=== PATIENT | male | born 1950 | race Caucasian/White ===

== ENCOUNTER → 2018-05-02 10:07 | Outpatient (CLI) | payer MEDICARE, BC, SELFPAY | PROVIDERS: PCP Internal Medicine; Visit Provider Internal Medicine | DX: R00.2 Palpitations (principal) | CPT/HCPCS: 93005 ==

== ENCOUNTER → 2018-10-10 08:11 | Outpatient (CLI) | payer MEDICARE, BC, SELFPAY ==
--- NOTE | 2018-10-10 09:00 | CT_ITS ---
CT abdomen pelvis wo con CLINICAL INDICATION: ITS.REASON: LLQ PAIN, ALTERED BOWEL HABITS ORDERING PHYSICIAN: Dorian Tolentino PATIENT AGE: 68 years COMPARISON: None TECHNIQUE: Axial images obtained with sagittal and coronal reformats. All CT scans at the facility use one or more dose reduction, viz: automated exposure control, ma/kV adjustment per patient size (including targeted exams where dose is matched to indication, i.e. head), or iterative reconstruction technique. PROCEDURE: Oral Contrast: Redicat IV Contrast: None . FINDINGS: Lower thorax: No acute finding There are at least 4 isodense lesions of the liver the largest in the dome of the liver at 15 mm with a second isodensity measuring 14 mm at the junction of the right and left hepatic lobe superiorly with these 2 lesions may be due to hemangiomas based on the previous enhancing imaging characteristics of 06/18/2009. The other isodensity's may represent cysts the largest of which is in the left hepatic lobe laterally at 16 mm. No new lesions are evident. Unremarkable appearing gallbladder. The spleen, adrenal glands, and pancreas have unremarkable unenhanced appearance. No renal or ureteral calculi. There is an exophytic soft tissue density projecting off the posterior aspect of the left kidney at 2.5 x 2 cm . The density is greater than what one would expect for simple cyst. This may represent a complex cyst having been present on the previous study. Ultrasound also demonstrated a cystic lesion of the left kidney on 04/10/2009. No intestinal obstruction or free air. No evidence of appendicitis. There is a mild amount of retained colonic feces. No evidence of diverticulitis. The prostate is enlarged measuring 7 x 5 x 5 5 cm indentation the inferior aspect of the urinary bladder. There is some lobularity along the anterior margin of the prostate on the right. There is mild thickening of the urinary bladder wall nonspecific. No acute bony findings. No abdominal wall hernia evident IMPRESSION: 1. Multiple isodense lesions of the liver which appear stable and may be due to combination of hemangiomas and cysts 2. Enlarged prostate. Mild concentric thickening of the urinary bladder wall which may be seen with prosthetic hypertrophy. 3. Mild amount of retained colonic feces. 4. 2.5 x 2 cm exophytic lesion projects off the posterior aspect of the left kidney. This has been present and may only represent a complex cyst but is slightly larger compared to the previous exam . This previously measured 2.2 x 1.4 cm. Suggest ultrasound to confirm cystic nature
== END ==
PROVIDERS: PCP Internal Medicine; Visit Provider Internal Medicine
DX: R10.32 Left lower quadrant pain (principal)
CPT/HCPCS: 74176

== ENCOUNTER → 2018-10-24 10:54 | Outpatient (CLI) | payer MEDICARE, BC, SELFPAY ==
--- NOTE | 2018-10-24 10:56 | US_ITS ---
US Kidney CLINICAL INDICATION: Enlarging left renal lesion ITS.REASON: LT KIDNEY CYST, LLQ PAIN ORDERING PHYSICIAN: Dorian Tolentino PATIENT AGE: 68 years Comparison: 10/10/2018 FINDINGS: The right kidney is 12 x 6 x 5 cm has an unremarkable appearance. No hydronephrosis. The left kidney is 10 x 5 x 5 cm. There is a 3 x 2 cm cyst projecting off the upper pole posteriorly corresponding to the CT abnormality which has benign appearance by ultrasound. No hydronephrosis or other significant anomalies. IMPRESSION: Left renal lesion corresponds to a benign-appearing cyst
== END ==
PROVIDERS: PCP Internal Medicine; Visit Provider Internal Medicine
DX: R10.32 Left lower quadrant pain (principal); N28.1 Cyst of kidney, acquired
CPT/HCPCS: 76770

== ENCOUNTER → 2018-11-29 14:39 | Outpatient (POV) | payer MEDICARE, BC, SELFPAY | DX: Z00.00 Encounter for general adult medical examination without abnormal findings (principal) ==

== ENCOUNTER → 2018-12-06 15:17 | Outpatient (POV) | payer MEDICARE, BC, SELFPAY | DX: Z00.00 Encounter for general adult medical examination without abnormal findings (principal) ==

== ENCOUNTER → 2019-10-29 07:52 | Outpatient (CLI) | payer MEDICARE, BC, SELFPAY ==
[2019-10-29 15:26] LABS: Coronavirus 19 IgG Antibody Negative (Negative); Coronavirus 19 IgM Antibody Negative (Negative)
== END ==
PROVIDERS: Visit Provider Ophthalmology
DX: Z01.818 Encounter for other preprocedural examination (principal)
CPT/HCPCS: 36415; 86328

== ENCOUNTER 2019-10-30 07:37 | Day surgery (SDC) | payer MEDICARE, BC, SELFPAY ==
[2019-10-24 10:02] VITALS: BMI 23.6
--- NOTE | 2019-10-26 09:26 | SUR.PREOP ---
10/26/2019 @ 6431--PHONE CALL MADE TO PATIENT. PATIENT UNDERSTANDS THAT LAB WORK AND COVID TESTING NEEDS TO BE COMPLETED @ 0800 ON 10/29/2019. PATIENT UNDERSTANDS IF LAB WORK AND COVID-19 TESTS ARE NOT COMPLETED BY 12PM ON THAT DATE, THE SURGERY SCHEDULED WILL BE CANCELLED AND RESCHEDULED FOR ANOTHER TIME.
[2019-10-30 08:16] VITALS: BP 141/84; PULSE 58; RESP 16; TEMP 36.8; O2SAT 99
[2019-10-30 08:51] VITALS: BP 154/86; PULSE 53; RESP 20; O2SAT 99
[2019-10-30 08:56] VITALS: BP 144/89; PULSE 54; RESP 18; O2SAT 99
[2019-10-30 09:01] VITALS: BP 146/93; PULSE 54; RESP 18; O2SAT 100
[2019-10-30 09:06] VITALS: BP 135/86; PULSE 55; RESP 20; O2SAT 100
[2019-10-30 09:09] VITALS: BP 139/97; PULSE 59; RESP 18; TEMP 36.4; O2SAT 98
== END 2019-10-30 09:21 | disposition home or self-care (01) ==
LOC: OR 07:38
PROVIDERS: PCP Internal Medicine; Visit Provider Ophthalmology
DX: H25.813 Combined forms of age-related cataract, bilateral (principal); H53.8 Other visual disturbances; Z88.0 Allergy status to penicillin
CPT/HCPCS: 66984; V2632

== ENCOUNTER 2020-01-02 10:29 | Emergency (ER) | payer MEDICARE, BC, SELFPAY ==
[2020-01-02 10:43] VITALS: BP 137/96; PULSE 69; RESP 16; TEMP 36.6; O2SAT 100; BMI 22.6
--- NOTE | 2020-01-02 11:00 | HMH.EDGENADL ---
ED Disposition Clinical Impression: Concussion Qualifiers: Encounter type: initial encounter Loss of consciousness presence/duration: without LOC Qualified Code(s): S06.0X0A - Concussion without loss of consciousness, initial encounter Disposition: Home, Self-Care Condition on Discharge: Good Instructions: DI for Concussion Additional Instructions: You have been evaluated for forgetfulness, head injury. Please avoid activities that cause headache. Take Tylenol. Follow-up with your primary care doctor in 1 to 2 days for symptom recheck. Return to the emergency department if you have any new or worsening symptoms, headache, neck pain, numbness or tingling in your arms, other concerns. Referrals: Dorian Tolentino [Primary Care Provider] - Time of Disposition: 13:26 - Critical Care Critical Care Time: No Attestation: On 01/02/20, the high probability of a clinically significant, sudden or life threatening deterioration of the following system(s) required my full and direct attention, intervention and personal management. The time I documented below is in addition to time spent performing reported procedures but includes the following listed in this critical care notation. Medical Decision Making - Medical Records Medical records reviewed: Yes: I reviewed the patient's medical records. - Claudio Inquiry Pt receiving controlled substance: No Vital Signs: 01/02/20 10:43 01/02/20 12:39 Temperature 98 F Temperature Source Temporal Artery Scan Pulse Rate [Right] 69 62 Respiratory Rate 16 16 Blood Pressure [Right Arm] 137/96 H 160/91 H Blood Pressure Mean [Right Arm] 109 114 Blood Pressure Source [Right Arm] Automatic Cuff Blood Pressure Position [Right Arm] Sitting Sitting 02 Sat by Pulse Oximetry 100 98 Oxygen Delivery Method Room Air Room Air Orders (Tests/Meds): ORDERS Category Date Time Status CT cervical spine wo con Stat Cat Scan 01/02/20 12:[address] head/brain wo con Stat Cat Scan 01/02/20 13:04 Ordered Medical Decision Narrative: In summary this is a 69-year-old male presenting to the emergency department with memory loss after head injury. He is overall stable on arrival. Answering questions appropriately, but intermittently pleasantly confused. Differential diagnoses include concussion, intracranial bleed. Will obtain noncontrast head CT. Story is inconsistent with vertebral or carotid injury, will obtain CT C-spine to assess for fractures. Noncontrast head CT shows old area of encephalomalacia on the right. No new bleed or acute injury. CT C-spine shows no bony abnormality. I counseled the patient on concussion management. Gave strict return precautions for any new or worsening symptoms like numbness or tingling in his arms, as we have not excluded a neurovascular injury. Patient does not have any symptoms at this time. Stable for discharge. Will follow up with his PCP. General Adult HPI - General Stated complaint: fell off a horse Time Seen by Provider: 01/02/20 10:51 Mode of Arrival: Ambulatory Source of Information: Patient, Spouse - History of Present Illness HPI narrative: 69-year-old male presenting to the emergency department with a head injury after falling off of a horse. Patient was riding 1 of his new horses when he realized that the horse was out of control. He fell to the side and rolled on the ground. Does not particularly remember hitting his head. Thought that most of his impact was on his side and his right arm. He was able to get up and ambulate. He does not remember the immediate events afterward. He called his daughter, does not remember it. When he came into the house was somewhat confused. Denied any pain in his chest, abdomen, back, extremities. No particular headache. Does feel rattled. He has had a concussion before, many years ago. Does not take blood thinners. - Related Data Home Medications Medication Instructions Recorded Conf
--- NOTE | 2020-01-02 11:01 | PC.NURSE ---
Called the Rad department at [facility] and let them I would be sending a patient over for a head/neck CT. Advised them I would send an order for the tests and requested that they send a disk back with the pt. I notified [facility] of the transfer, and spoke with the pt and his family and they were agreeable to the transfer to [place] for the exam and then returning to [facility] for rest of workup.
--- NOTE | 2020-01-02 11:12 | PC.NURSE ---
Pt going to [facility] at this time.
--- NOTE | 2020-01-02 12:35 | PC.NURSE ---
Pt returned from [facility]
[2020-01-02 12:39] VITALS: BP 160/91; PULSE 62; RESP 16; O2SAT 98
[2020-01-02 13:34] VITALS: BP 121/65; PULSE 87; RESP 16; TEMP 36.6; O2SAT 98
== END 2020-01-02 13:37 | disposition home or self-care (01) ==
PROVIDERS: Emergency Provider Emergency Medicine; PCP Internal Medicine
DX: S06.0X0A Concussion without loss of consciousness, initial encounter (principal); V80.010A Animal-rider injured by fall from or being thrown from horse in noncollision accident, initial encounter; Y92.73 Farm field as the place of occurrence of the external cause; I48.91 Unspecified atrial fibrillation; Z88.0 Allergy status to penicillin
CPT/HCPCS: 70450; 72125; 99282

== ENCOUNTER → 2020-01-21 11:49 | Outpatient (CLI) | payer MEDICARE, BC, SELFPAY ==
--- NOTE | 2020-01-21 11:55 | XR_ITS ---
PROCEDURE: XR LUMBAR SPINE MIN 4V CLINICAL INDICATION: RIGHT SIDED LOW BACK PAIN COMPARISON: CT ABDPELWO CT abdomen pelvis wo con from 10/10/2018 FINDINGS: Normal alignment. No fracture or dislocation. There is multilevel lumbar spondylosis with degenerative disc disease at T11-T12 T12-L1 L1-L2 and L2-L3. Marginal osteophytes are present at the endplates of the lower thoracic and lumbar spine. Facet hypertrophic changes are present at L5-S1. No lytic or blastic change. Other findings:There is anterior angulation of the lower sacrum which is chronic. This suggests an old injury. There is a sclerotic focus of the L4 vertebral body and may be due to a bone island IMPRESSION: Degenerative changes as described above Dictated by: Paulino Obregon MD 01/21/2020 12:27 Paulino Obregon MD in [place] 01/21/2020 12:27
--- NOTE | 2020-01-21 11:56 | XR_ITS ---
PROCEDURE: XR PELVIS 1-2V CLINICAL INDICATION: RIGHT SIDED BACK PAIN COMPARISON: No exams were available for comparison TECHNIQUE: XR Pelvis AP View FINDINGS: Mild osteoarthritic changes are present involving both hips slightly greater on the right compared to the left. There is also mild sclerosis of the right SI joint inferiorly. No fracture or dislocation. No lytic or blastic change. There is an os acetabulum on the right. There is mild sclerosis of the symphysis pubis. No lytic or blastic change. IMPRESSION: Mild osteoarthritic changes of the hips Dictated by: Paulino Obregon MD 01/21/2020 12:24 Paulino Obregon MD in [place] 01/21/2020 12:24
== END ==
PROVIDERS: PCP Internal Medicine; Visit Provider Internal Medicine
DX: M54.5 Low back pain (principal)
CPT/HCPCS: 72110; 72170

== ENCOUNTER 2024-09-05 14:57 | Outpatient (CLI) | payer MEDICARE, BC, SELFPAY ==
[2024-09-05 13:47] LABS: Basophils % 0.3 % (0.1-2.0); Eosinophils # 0.2 K/mm3 (0.0-0.4); Eosinophils % 2.6 % (0.1-12.0); Hematocrit 44.4 % (42.0-52.0); Hemoglobin 15.3 g/dL (14.1-18.0); Lymphocytes # 1.7 K/mm3 (0.7-4.5); Lymphocytes % 26.3 % (10-50); Mean Corpuscular HGB Conc 34.5 g/dL (31.8-35.4); Mean Corpuscular Volume 92.9 fl (80-94); Mean Platelet Volume 10.5 fl (7.4-10.4); Monocytes # 0.6 K/mm3 (0.1-1.0); Monocytes % 9.4 % (1.7-9.3); Neutrophils # 4.1 K/mm3 (1.8-7.8); Neutrophils % 61.2 % (37.0-80.0); Nucleated Red Blood Cells # 0 10^3/uL; Nucleated Red Blood Cells % 0 %; Platelet Count 211 K/mm3 (142-424); Red Blood Count 4.78 M/mm3 (4.60-6.20); Red Cell Distribution Width-SD 44.4 fL; White Blood Count 6.6 K/mm3 (4.8-10.8)
[2024-09-05 14:16] LABS: Alanine Aminotransferase 18 U/L (12-78); Albumin Level 4.6 g/dl (3.5-5.0); Albumin/Globulin Ratio 1.4 (1.1-1.8); Alkaline Phosphatase 57 U/L (38-126); Anion Gap 13.2 mEq/L (5-15); Aspartate Amino Transferase 45 U/L (17-59); Bilirubin,Total 1.1 mg/dl (0.2-1.3); Blood Urea Nitrogen 14 mg/dl (9-20); Calcium 9.3 mg/dl (8.4-10.2); Carbon Dioxide 28 mmol/L (22.0-30.0); Chloride 101 mmol/L (98-107); Chol/HDL Ratio 4.4 (1-3.5); Cholesterol 210 mg/dl (140-200); Estimated Glomerular Filt Rate 95 ml/min (>60); GFR (African American) 115 ML/MIN (>60); Globulin 3.2 g/dL (1.3-3.2); Glucose 93 mg/dl (74-100); HDL Cholesterol 48 mg/dl (40-60); Potassium 4.2 mmoL/L (3.5-5.1); Sodium 138 mmol/L (136-145); Total Protein,Serum 7.8 g/dl (6.3-8.2); Triglycerides 95 mg/dl (30-150); VLDL Cholesterol 19 mg/dL (0-40)
[2024-09-05 14:24] LABS: Erythrocyte Sedimentation Rate 15 mm/hr (0-20)
[2024-09-05 14:45] LABS: Thyroid Stimulating Hormone 0.74 uIU/mL (0.465-4.68)
[2024-09-05 16:23] LABS: Vitamin B12 > 1000 pg/mL (239-931)
== END 2024-09-05 23:59 | disposition home or self-care (01) ==
LOC: LAB.DROPOF 14:58
PROVIDERS: PCP Internal Medicine; Visit Provider Internal Medicine
DX: E78.5 Hyperlipidemia, unspecified (principal); I10 Essential (primary) hypertension; R41.3 Other amnesia; K52.9 Noninfective gastroenteritis and colitis, unspecified
CPT/HCPCS: 80053; 80061; 82607; 82746; 84443; 85025; 85651

== ENCOUNTER 2024-09-06 14:55 | Outpatient (CLI) | payer MEDICARE, BC, SELFPAY ==
[2024-09-06 13:46] LABS: Adenovirus F 40/41, stool Not Detected (NotDetected); Astrovirus Not Detected (NotDetected); Campylobacter Not Detected (NotDetected); Clostridium Difficile A/B, PCR Not Detected (NotDetected); Cryptosporidium Not Detected (NotDetected); Cyclospora Cayetanesis Not Detected (NotDetected); Entamoeba histolytica Not Detected (NotDetected); Enteroaggregative E coli Not Detected (NotDetected); Enteropathogenic E coli Not Detected (NotDetected); Enterotoxigenic E coli Not Detected (NotDetected); Giardia lamblia Not Detected (NotDetected); Norovirus Not Detected (NotDetected); Plesimonas Shigalloides, PCR Not Detected (NotDetected); Rotavirus A Not Detected (NotDetected); Salmonella, PCR Not Detected (NotDetected); Sapovirus Not Detected (NotDetected); Shiga-like toxin E coli Not Detected (NotDetected); Shigella Enterovasive E coli Not Detected (NotDetected); Vibrio Cholerae Not Detected (NotDetected); Vibrio, PCR Not Detected (NotDetected); Yersinia Entercolitica, PCR Not Detected (NotDetected)
--- OUTSIDE RECORDS SUMMARY | 2024-09-06 14:57 | XMS_ITS | Data Portability ---
Author Organization [facility] ELLIS Perales [place] CLOSED Address [address] [place] [address] Care Team Providers Care Traffic Director Name Role Phone [facility] OF [facility] Primary Care Provider Assessment No assessment recorded. Plan of Treatment Reminders Order Date Submit Date Provider Last Modified By Organization Details Last Modified Time Details Appointments RECHECK 2024 09:30A M ISAIAH PEREZ MD Not available Not available Not available Lab urinalysi s panel, auto 2023 024 [email or web address] [facility], [address], [place], [address], 04/08/2024 15:21:19 PSA, serum or plasma 2023 024 [email or web address] [facility], [address], [address], [place], [address], 04/08/2024 15:21:19 urinalysi s panel, auto 2023 024 [email or web address] [facility], [address], [address], [place], [address], 10/06/2023 23:45:46 PSA, serum or plasma 2023 024 [email or web address] [facility], [address], [address], [place], [address], 10/06/2023 23:45:47 PSA, serum or plasma [address] [facility], [address], [address], [place], [address], 10/01/2022 11:37:02 urinalysi s panel, auto [address] [facility], [address], [address], [place], [address], 08/20/2022 22:17:15 PSA, serum or plasma [address] [facility], [address], [address], [place], [address], 08/20/2022 22:17:15 PSA, serum or plasma [address] [facility], [address], [address], [place], [address], 07/20/2021 23:03:16 Referral None recorded. Procedures None recorded. Surgeries None recorded. Imaging None recorded. Medication Orders nabumeton e 500 mg tablet 2022 023 [email or web address] [facility], [address] [place], [address], 04/06/2024 09:23:41 doxycycli ne monohydra te 100 mg capsule 2022 023 [email or web address] [facility], [address] [place], [address], 10/05/2023 14:23:40 Patient TargetsNo targets recorded. Patient Instructions Encounter Date Encounter Id Patient Instructions Last Modified By Organization Details Last Modified Time 08/20/2022 [id number] learning about healthy weight [email or web address] Not available 08/20/2022 13:38:34 Reason for Referral None Reported. Results Created Date Observation Date Name Description Value Unit Range Abnormal Flag Note LastModifiedBy Organization Detail LastModifiedTime 07/20/19 22 07/20/2021 PSA, serum or plasm a PSA 12.1 NG/mL 0.0 - 4.0 Not Available [facility] [address], [place], [address], 07/20/2021 12:04:44 08/21/19 23 08/20/2022 PSA, serum or plasm a PSA 20.5 NG/mL 0.0 - 4.0 Not Available [facility] [address], [place], [address], 08/20/2022 13:05:31 08/21/19 23 08/20/2022 urina lysis panel , auto Unknown Analyte Clean Catch Not Available [facility] [address], [place], [address], 08/20/2022 13:04:36 08/21/19 23 08/20/2022 urina lysis panel , auto Unknown Analyte Yellow Not Available [facility] [address], [place], [address], 08/20/2022 13:04:36 08/21/19 23 08/20/2022 urina lysis panel , auto Unknown Analyte Clear Not Available [facility] [address], [place], [address], 08/20/2022 13:04:36 08/21/19 23 08/20/2022 urina lysis panel , auto Unknown Analyte 1.015 Not Available [facility] [address], [place], [address], 08/20/2022 13:04:36 08/21/19 23 08/20/2022 urina lysis panel , auto Unknown Analyte 1.003- 1.035 Not Available [facility] [address], [place], [address], 08/20/2022 13:04:36 08/21/19 23 08/20/2022 urina lysis panel , auto Unknown Analyte 6.0 Not Available [facility] [address], [place], [address], 08/20/2022 13:04:36 08/21/19 23 08/20/2022 urina lysis panel , auto Unknown Analyte 5.0-8. 0 Not Available [facility] [address], [place], [address], 08/20/2022 13:04:36 08/21/19 23 08/20/2022 urina lysis panel , auto Unknown Analyte 25 Veronique/ul Trace Not Available [facility] [address], [place], [address], 08/20/2022 13:04:36 08/21/19 23 08/20/2022 urina lysis panel , auto Unknown Analyte Negati ve Not Available [facility] [address], [place], [address], 08/20/2022 13:04:36 08/21/19 23 08/20/2022 urina lysis panel , auto Unknown Analyte Negati ve Not Available [facility] [address], [place], [address], 08/20/2022 13:04:36 08/21/19 23 08/20/2022 urina lysis panel , auto Unknown Analyte Negati ve Not Available [facility] [address], [place], [address], 08/20/2022 13:04:36 08/21/19 23 08/20/2022 urina lysis panel , auto Unknown Analyte Trace Not Available [facility] [address], [place], [address], 08/20/2022 13:04:36 08/21/19 23 08/20/2022 urina lysis panel , auto Unknown Analyte Negati ve Not Available [facility] [address], [place], [address], 08/20/2022 13:04:36 08/21/19 23 08/20/2022 urina lysis panel , auto Unknown Analyte Normal Not Available [facility] [address], [place], [address], 08/20/2022 13:04:36 08/21/19 23 08/20/2022 urina lysis panel , auto Unknown Analyte Normal Not Available [facility] [address], [place], [address], 08/20/2022 13:04:36 08/21/19 23 08/20/2022 urina lysis panel , auto Unknown Analyte Negati ve Not Available [facility] [address], [place], [address], 08/20/2022 13:04:36 08/21/19 23 08/20/2022 urina lysis panel , auto Unknown Analyte Negati ve Not Available [facility] [address], [place], [address], 08/20/2022 13:04:36 08/21/19 23 08/20/2022 urina lysis panel , auto Unknown Analyte Normal Not Available [facility] [address], [place], [address], 08/20/2022 13:04:36 08/21/19 23 08/20/2022 urina lysis panel , auto Unknown Analyte Normal 1 mg/dl Not Available [facility] [address], [place], [address], 08/20/2022 13:04:36 08/21/19 23 08/20/2022 urina lysis panel , auto Unknown Analyte Negati ve Not Available [facility] [address], [place], [address], 08/20/2022 13:04:36 08/21/19 23 08/20/2022 urina lysis panel , auto Unknown Analyte Negati ve Not Available [facility] [address], [place], [address], 08/20/2022 13:04:36 08/21/19 23 08/20/2022 urina lysis panel , auto Unknown Analyte 50 Ian/ul Not Available [facility] [address], [place], [address], 08/20/2022 13:04:36 08/21/19 23 08/20/2022 urina lysis panel , auto Unknown Analyte Negati ve Not Available [facility] [address], [place], [address], 08/20/2022 13:04:36 10/02/19 23 10/01/2022 PSA, serum or plasm a PSA 13.5 NG/mL 0.0 - 4.0 Not Available [facility] [address], [place], [address], 10/01/2022 11:02:28 10/05/19 24 10/05/2023 PSA, serum or plasm a PSA 13.8 NG/mL 0.0 - 4.0 Not Available [facility] [address], [place], [address], 10/05/2023 14:42:07 10/05/19 24 10/05/2023 urina lysis panel , auto Unknown Analyte Clean Catch Not Available [facility] [address], [place], [address], 10/05/2023 14:24:29 10/05/19 24 10/05/2023 urina lysis panel , auto Unknown Analyte Yellow Not Available [facility] [address], [address], 10/05/2023 14:24:29 10/05/19 24 10/05/2023 urina lysis panel , auto Unknown Analyte Clear Not Available [facility] [address], [place], [address], 10/05/2023 14:24:29 10/05/19 24 10/05/2023 urina lysis panel , auto Unknown Analyte 1.015 Not Available [facility] [address], [place], [address], 10/05/2023 14:24:29 10/05/19 24 10/05/2023 urina lysis panel , auto Unknown Analyte 1.003- 1.035 Not Available [facility] [address], [place], [address], 10/05/2023 14:24:29 10/05/19 24 10/05/2023 urina lysis panel , auto Unknown Analyte 5.0 Not Available [facility] [address], [place], [address], 10/05/2023 14:24:29 10/05/19 24 10/05/2023 urina lysis panel , auto Unknown Analyte 5.0-8. 0 Not Available [facility] [address], [place], [address], 10/05/2023 14:24:29 10/05/19 24 10/05/2023 urina lysis panel , auto Unknown Analyte Negati ve Not Available [facility] [address], [place], [address], 10/05/2023 14:24:29 10/05/19 24 10/05/2023 urina lysis panel , auto Unknown Analyte Negati ve Not Available [facility] [address], [place], [address], 10/05/2023 14:24:29 10/05/19 24 10/05/2023 urina lysis panel , auto Unknown Analyte Negati ve Not Available [facility] [address], [place], [address], 10/05/2023 14:24:29 10/05/19 24 10/05/2023 urina lysis panel , auto Unknown Analyte Negati ve Not Available [facility] [address], [place], [address], 10/05/2023 14:24:29 10/05/19 24 10/05/2023 urina lysis panel , auto Unknown Analyte Negati ve Not Available [facility] [address], [place], [address], 10/05/2023 14:24:29 10/05/19 24 10/05/2023 urina lysis panel , auto Unknown Analyte Negati ve Not Available [facility] [address], [place], [address], 10/05/2023 14:24:29 10/05/19 24 10/05/2023 urina lysis panel , auto Unknown Analyte Normal Not Available [facility] [address], [place], [address], 10/05/2023 14:24:29 10/05/19 24 10/05/2023 urina lysis panel , auto Unknown Analyte Normal Not Available [facility] [address], [place], [address], 10/05/2023 14:24:29 10/05/19 24 10/05/2023 urina lysis panel , auto Unknown Analyte 15 mg/dl (Sm) Not Available [facility] [address], [place], [address], 10/05/2023 14:24:29 10/05/19 24 10/05/2023 urina lysis panel , auto Unknown Analyte Negati ve Not Available [facility] [address], [place], [address], 10/05/2023 14:24:29 10/05/19 24 10/05/2023 urina lysis panel , auto Unknown Analyte Normal Not Available [facility] [address], [place], [address], 10/05/2023 14:24:29 10/05/19 24 10/05/2023 urina lysis panel , auto Unknown Analyte Normal 1 mg/dl Not Available [facility] [address], [place], [address], 10/05/2023 14:24:29 10/05/19 24 10/05/2023 urina lysis panel , auto Unknown Analyte Negati ve Not Available [facility] [address], [place], [address], 10/05/2023 14:24:29 10/05/19 24 10/05/2023 urina lysis panel , auto Unknown Analyte Negati ve Not Available [facility] [address], [place], [address], 10/05/2023 14:24:29 10/05/19 24 10/05/2023 urina lysis panel , auto Unknown Analyte 250 Ian/ul Not Available [facility] [address] [place] [address] [address], [place], [address], 10/05/2023 14:24:29 10/05/19 24 10/05/2023 urina lysis panel , auto Unknown Analyte Negati ve Not Available [facility] [address], [place], [address], 10/05/2023 14:24:29 04/06/20 24 04/06/2024 PSA, serum or plasm a PSA 12.1 NG/mL 0.0 - 4.0 Not Available [facility] [address], [place], [address], 04/06/2024 10:05:23 04/06/20 24 04/06/2024 urina lysis panel , auto Unknown Analyte Clean Catch Not Available [facility] [address], [place], [address], 04/06/2024 08:54:16 04/06/2004/06/2024 urina lysis panel , auto Unknown Analyte Yellow Not Available [facility] [address], [place], [address], 04/06/2024 08:54:16 04/06/20 24 04/06/2024 urina lysis panel , auto Unknown Analyte Clear Not Available [facility] [address], [place], [address], 04/06/2024 08:54:16 04/06/20 24 04/06/2024 urina lysis panel , auto Unknown Analyte 1.010 Not Available [facility] [address], [place], [address], 04/06/2024 08:54:16 04/06/2004/06/2024 urina lysis panel , auto Unknown Analyte 1.003- 1.035 Not Available [facility] [address], [place], [address], 04/06/2024 08:54:16 04/06/20 24 04/06/2024 urina lysis panel , auto Unknown Analyte 8.0 Not Available [facility] [address], [place], [address], 04/06/2024 08:54:16 04/06/20 24 04/06/2024 urina lysis panel , auto Unknown Analyte 5.0-8. 0 Not Available [facility] [address], [place], [address], 04/06/2024 08:54:16 04/06/20 24 04/06/2024 urina lysis panel , auto Unknown Analyte Negati ve Not Available [facility] [address], [place], [address], 04/06/2024 08:54:16 04/06/20 24 04/06/2024 urina lysis panel , auto Unknown Analyte Negati ve Not Available [facility] [address], [place], [address], 04/06/2024 08:54:16 04/06/20 24 04/06/2024 urina lysis panel , auto Unknown Analyte Negati ve Not Available [facility] [address], [place], [address], 04/06/2024 08:54:16 04/06/2004/06/2024 urina lysis panel , auto Unknown Analyte Negati ve Not Available [facility] [address], [place], [address], 04/06/2024 08:54:16 04/06/20 24 04/06/2024 urina lysis panel , auto Unknown Analyte Negati ve Not Available [facility] [address], [place], [address], 04/06/2024 08:54:16 04/06/20 24 04/06/2024 urina lysis panel , auto Unknown Analyte Negati ve Not Available [facility] [address], [place], [address], 04/06/2024 08:54:16 04/06/20 24 04/06/2024 urina lysis panel , auto Unknown Analyte Normal Not Available [facility] [address], [place], [address], 04/06/2024 08:54:16 04/06/20 24 04/06/2024 urina lysis panel , auto Unknown Analyte Normal Not Available [facility] [address], [place], [address], 04/06/2024 08:54:16 04/06/2004/06/2024 urina lysis panel , auto Unknown Analyte Negati ve Not Available [facility] [address], [place], [address], 04/06/2024 08:54:16 04/06/2004/06/2024 urina lysis panel , auto Unknown Analyte Negati ve Not Available [facility] [address], [place], [address], 04/06/2024 08:54:16 04/06/2004/06/2024 urina lysis panel , auto Unknown Analyte Normal Not Available [facility] [address], [place], [address], 04/06/2024 08:54:16 04/06/2004/06/2024 urina lysis panel , auto Unknown Analyte Normal 1 mg/dl Not Available [facility] [address], [place], [address], 04/06/2024 08:54:16 04/06/2004/06/2024 urina lysis panel , auto Unknown Analyte Negati ve Not Available [facility] [address], [place], [address], 04/06/2024 08:54:16 04/06/20 24 04/06/2024 urina lysis panel , auto Unknown Analyte Negati ve Not Available [facility] [address] [facility] [address], [place], [address], 04/06/2024 08:54:16 04/06/20 24 04/06/2024 urina lysis panel , auto Unknown Analyte 50 Ian/ul Not Available [facility] [address], [place], [address], 04/06/2024 08:54:16 04/06/20 24 04/06/2024 urina lysis panel , auto Unknown Analyte Negati ve Not Available [facility] [address], [place], [address], 04/06/2024 08:54:16 Result Notes None recorded. Problems Name Problem SNOMED Code Status Onset Date Resolution Date Notes Provider Name and Address Organization Details Recorded Time Prostate specific antigen above reference range 634540703 Active 2014 From Automated Load;Prov ider: Isaiah Perez;S tatus: Active Not Available [facility] 6 01:49:14 Lower urinary tract symptoms due to benign prostatic hypertrop 08741937680 101 Active 2015 From Automated Load;Prov ider: Maggie Isaiah;S tatus: Active Not Available [facility] 6 01:49:14 Problem Notes None recorded. Procedures Surgical History Date Name Laterality Status Provider Name and Address Organization Details Recorded Time 7 Hernia Repair completed Murelene Shayne [facility] 04/08/2017 14:15:26 Prostate biopsy, any mthd completed Ivette Reynoso [facility] 08/06/2016 14:18:54 Imaging Results None recorded. Procedure Notes None recorded. Medical Equipment None Reported. Allergies Allergen ID Allergen Name Allergen Category Reaction Reaction Severity Criticality Documentation Date Start Date Code Code System Note Provider Name and Address Organization Details Recorded Time 201036 Product containin g penicilli n (product) medicatio n Not available Not available Not available 04/16/20162012 45416 7972 SNOMED Comme nt: Creat ed By: Adolfo pepeCr eated Date: 05/04 11:15 :40 AM; Not Available [facility] 03:48:07 Medications Name Sig Start Date Stop Date Status Note LastModified by Organization Details LastModified Time doxycycline monohydrate 100 mg capsule Take 1 capsule twice a day by oral route. 10/04 completed Not Available Not Available Not Available nabumetone 500 mg tablet Take 1 tablet twice a day by oral route. 04/06 completed Not Available Not Available Not Available Vitals Date Recorded Body weight Body mass index (BMI) Body height Provider Name and Address Organization Details Last Updated DateTime 07/20/2021 83271.82 g 22.2 kg/m2 177.8 cm Germaine Connor [facility] 07/20/2021 12:04:29 Date Recorded Body height Body mass index (BMI) Body weight Provider Name and Address Organization Details Last Updated DateTime 08/20/2022 177.8 cm 22.2 kg/m2 07087.82 g Katie Bella [facility] 08/20/2022 13:03:46 Date Recorded Body height Body mass index (BMI) Body weight Provider Name and Address Organization Details Last Updated DateTime 10/01/2022 177.8 cm 22.2 kg/m2 36369.82 christi Ivette Reynoso [facility] 10/01/2022 11:02:13 Date Recorded Body height Body mass index (BMI) Body weight Provider Name and Address Organization Details Last Updated DateTime 10/05/2023 177.8 cm 22.2 kg/m2 85965.82 g Lauren Tolentino [facility] 10/05/2023 14:22:44 Date Recorded Body height Body mass index (BMI) Body weight Provider Name and Address Organization Details Last Updated DateTime 04/06/2024 177.8 cm 22.7 kg/m2 07193.59 christi Bella [facility] 04/06/2024 09:22:31 Social History Question Answer Notes LastModified by Organizat ion Details LastModified Time Tobacco Smoking Status Former Smoker Ivette Reynoso [facility] 08/06/2016 14:18:30 What Is Your Level Of Alcohol Consumption? Occasional Information not available 08/06/2016 How Much Tobacco Do You Chew? None [email or web address] Information not available 10/18/2018 Marital Status Informat ion not available 08/06/2016 What Was The Date Of Your Most Recent Tobacco Screening? 04/06/2024 [email or web address] Information not available 04/06/2024 Do You Use Any Illicit Or Recreational Drugs? No [email or web address] Information not available 07/20/2021 Has Tobacco Cessation Counseling Been Provided? No [email or web address] Information not available 07/20/2021 Have You Recently Traveled Abroad? No [email or web address] Information not available 07/20/2021 Do You Or Have You Ever Used Any Other Forms Of Tobacco Or Nicotine? No [email or web address] Information not available 07/20/2021 Sex: Male Functional Status None recorded. Mental Status None recorded. Family History Relationship Description Onset Age of this Age Resolved Age Notes LastModified by Organization Details LastModified Time Unspecified Relation Diabetes mellitus rich Not available 14:18:17 Unspecified Relation Family history of malignant neoplasm rich Not available 14:18:23 Medical History Condition Response Gout N Kidney Stones N Heart Arrhythmia N Emphysema N Erectile Dysfunction N Depression N Pneumonia N Cancer Prostate N Anxiety Disorder N Arthritis N Acid Reflux (GERD) N Cancer N Stroke N Kidney Disease N Heart Conditions N Urinary Problems N Ulcers N Low Testosterone N Tuberculosis N AIDS/HIV N BPH Y Urinary Tract Infection N Asthma Y Thyroid Disorder N Hepatitis N Glaucoma N Anesthesia Complications N Radiation Therapy N High Cholesterol N High PSA Y Liver Disease N Allergies/Hayfever N False Teeth N Chronic Obstructive Pulmonary Disease N Chemotherapy N Anemia N Heart Attack (ND) N Mental Illness N Diabetes N Seizures/Epilepsy N Congestive Heart Failure (CHF) N Sleep Apnea N Heart Disease Y Bronchitis N Hypertension N Past Encounters Encounter ID Performer Location Encounter Start Date Encounter Closed Date Diagnosis/Indication Diagnosis SNOMED-CT Code Diagnosis ICD10 Code Diagnosis Note [id number] ISAIAH PEREZ MD [facility] [address] [place] [address] 08/06/2016 14:09:46 08/09/2016 16:30:50 Prostate specific antigen above reference range [id number] R97.20 due to the recent change she will follow-up in 2 months with repeat PSA. [id number] ISAIAH PEREZ MD [facility] [address] [place] [address] 10/08/2016 14:03:21 10/11/2016 12:15:23 Prostate specific antigen above reference range [id number] R97.20 Follow-up 6 months with PSA [id number] ISAIAH PEREZ MD [facility] [address] [place] [address] 04/08/2017 13:21:23 04/12/2017 08:01:06 Prostate specific antigen above reference range 509378072 R97.20 Follow-up 3 months with PSA [id number] ISAIAH PEREZ MD [facility] [address] [place] [address] 07/13/2017 13:11:25 07/15/2017 11:12:14 Prostate specific antigen above reference range 538722463 R97.20 Follow-up 6 months with PSA [id number] ISAIAH PEREZ MD [facility] [address] [place] [phone] 01/18/2018 15:30:12 01/18/2018 17:48:31 Prostate specific antigen above reference range 563805310 R97.20 Follow-up 3 months with PSA [id number] ISAIAH PEREZ MD [facility] [address] [place] [address] 04/19/2018 15:47:30 04/19/2018 16:48:56 Prostate specific antigen above reference range 884859131 R97.20 Follow-up 6 months with PSA [id number] ISAIAH PEREZ MD [facility] [address] [place] [address] 10/18/2018 16:03:21 10/18/2018 17:11:39 Prostate specific antigen above reference range [id number] R97.20 Follow-up 6 months with PSA Renal mass 210870909 N28 .89 awaiting additional studies as above [id number] ISAIAH PEREZ MD [facility] [address] [address] 04/18/2019 15:01:06 04/18/2019 16:43:44 Prostate specific antigen above reference range 306444634 R97.20 Follow-up 6 months with PSA Renal mass 074456426 N28 [address] scan without and with contrast 6 months renal mass protocol [id number] ISAIAH PEREZ MD [facility] [address] [address] 12/10/2019 12:50:05 12/10/2019 13:53:03 Prostate specific antigen above reference range 691708060 R97.20 Follow-up 6 months with PSA Benign pro static hyperplasia with outflow obstruction 225465548 N40.1 he currently takes no urologic medication s and is satisfied [id number] ISAIAH PEREZ MD [facility] [address] [address] 06/09/2020 10:29:12 06/09/2020 14:15:11 Prostate specific antigen above reference range 412524667 R97.20 Follow-up 6 months with PSA Benign pro static hyperplasia with outflow obstruction 441714623 N40.1 he currently takes no urologic medication s and is satisfied [id number] ISAIAH PEREZ MD [facility] [address] [address] 07/20/2021 11:00:49 07/20/2021 12:12:45 Prostate specific antigen above reference range 082296908 R97.20 Follow-up 6 months with PSA [id number] ISAIAH PEREZ MD [facility] [address] [address] 08/20/2022 12:45:56 08/20/2022 13:37:56 Prostate specific antigen above reference range [id number] R97.20 1 month with PSA Chronic prostatitis 1990 5009 N41.1 [id number] ISAIAH PEREZ MD [facility] [address] [address] 10/01/2022 10:15:01 10/01/2022 11:37:39 Prostate specific antigen above reference range 036313813 R97.20 6 month with PSA Chronic prostatitis 1989 5009 N41.1 Monitor [id number] ISAIAH PEREZ MD [facility] [address] [place] [address] 10/05/2023 14:04:37 10/05/2023 14:57:28 Prostate specific antigen above reference range 533632398 R97.20 6 month with PSA Benign pro static hyperplasia with outflow obstruction 210947078 N40.1 he currently takes no urologic medication s and is satisfied [id number] ISAIAH PEREZ MD [facility] [address] [place] [id number] 04/06/2024 08:45:05 04/06/2024 10:21:20 Prostate specific antigen above reference range 605416963 R97.20 6 month with PSA Health Concerns Section Related Observation LastModified by Organization Detai ls LastModified Time None Recorded Concern Status LastModified by Organization Details LastModified Time None Recorded Advance Directives Directive None Recorded Payers Encounter Date Sequence Insurance Name Policy Number Policy Ritchie Covered Member ID Ritchie Member ID Guarantor Name 07/20/2021 1 [place] Timothy Peterson [id number] Timothy Peterson 07/20/2021 2 [place] 111 Timothy Peterson [id number] Timothy Peterson 08/20/2022 1 [place] Peterson [id number] Timothy Peterson 08/20/2022 2 [place] 111 Timothy Peterson [id number] Timothy Peterson 10/01/2022 1 [place] Peterson [id number] Timothy Peterson 10/01/2022 2 [place] 111 Timothy Peterson [id number] Timothy Peterson 10/05/2023 1 [place] Timothy Peterson [id number] Timothy Peterson 10/05/2023 2 [place] 111 Timothy Peterson [id number] Timothy Peterson 04/06/2024 1 [place] Peterson [id number] Timothy Peterson 04/06/2024 2 [place] 111 Timothy Peterson [id number] Timothy Peterson Notes Date Note Type Note Provider Name and Address Organization Details Recorded Time 07/20/2021 text/html Patient is here follow-up of chronically elevated PSA. He has had previous negative biopsies of the prostate on several occasions. He tends to have considerable fluctuations. His PSA last visit was 11.4. He remains very active. His PSA today is pending ISAIAH PEREZ MD [address] [place] [address], [phone], [facility] 07/20/2021 23:03:50 08/20/2022 text/html Patient is here for follow-up of mildly elevated chronically with PSA. He has mild obstructive symptoms. His obstructive symptoms have been more bothersome with some hesitancy and double voiding. PSA at last visit a year ago was 12.1 but today up to 20.5. He has no dysuria. He has been more physically active and started running. ISAIAH PEREZ MD [address] [place] [address], [phone], [facility] 08/20/2022 13:38:56 10/01/2022 text/html Patient is here in follow-up of chronically elevated PSA. He was seen at the end of July and his PSA had jumped up to 20. Typically his PSA runs between 10 and 11. I placed him on doxycycline and nabumetone. He also change some dietary habits. PSA today was down to 13.4. He actually states that he is voiding much better with nocturia x0. I suggest continued observation[place], [address], [facility] 10/01/2022 11:37:18 10/05/2023 text/html Patient is here in follow-up of chronically elevated and fluctuating PSA. He has had previously had negative biopsies of the prostate. He has moderate obstructive symptoms with seems to fluctuate in severity. He may have nocturia x 0 or x 3. For the most part he is satisfied. His PSA today was stable at 13.8. [place], [address], [facility] 10/06/2023 23:46:47 04/06/2024 text/html Patient is here for scheduled 6-month follow-up with chronically elevated PSA. He has had several biopsies which were negative. He has moderate symptoms which seem to fluctuate in severity. He has nocturia x 2. PSA at last visit was 13.8 and today 12.1. He is having some issues with hypertension. [place] and [place] are [place] this. [place] [address], [facility] hospital 04/08/2024 15:21:52
--- OUTSIDE RECORDS SUMMARY | 2024-09-06 14:58 | XMS_ITS | Continuity of Care Document ---
Author Name [facility] Organization [facility] Care Team Providers Care Regulator Inspector Name Role Phone [facility] Unavailable Unavailable Problems Combined list of problems from Department of Defense and [facility] Affairs facilities. It does not include entries that were removed or entered in error. Problem Status Onset Date Problem Type Date of Resolution Comments Source History of polyp of colon Active 9 Condition Jul 10, 2021 Entered By: AZAM MUNGUIA Comment: JagjitDr. Jake Cabrera [facility] Diverticular Disease of Colon ([facility] [id number]) Active Condition [facility] Elevated PSA Active Condition [facility] Exposure [facility] potentially hazardous chemical Active Condition [facility] Family history of diabetes mellitus Active [facility] History of SARS-CoV-2 Active Condition [facility] Internal hemorrhoids Active Condition [facility] Multiple renal cysts Active Condition [facility] Diagnosis: ICD-10-CM H35.81 Retinal edema Active Diagnosis [facility] Diagnosis: ICD-10-CM R00.2 Palpitations Active Diagnosis [facility] Diagnosis: ICD-10-CM Z13.6 Encounter for screening for cardiovascular disorders Active Diagnosis [facility] Diagnosis: ICD-10-CM Z71.89 Other specified counseling Active Diagnosis [facility] Diagnosis: ICD-10-CM I10 Essential (primary) hypertension Active Diagnosis [facility] Diagnosis: ICD-10-CM Z77.29 Contact with and exposure to other hazardous substances Active Diagnosis [facility] Diagnosis: ICD-10-CM I49.3 Ventricular premature depolarization Active Diagnosis [facility] Diagnosis: ICD-10-CM 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, left eye, stable Active Diagnosis [facility] Diagnosis: ICD-10-CM 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, other specified site Active Diagnosis [facility] Diagnosis: ICD-10-CM M19.93 Secondary osteoarthritis, unspecified site Active Diagnosis [facility] Diagnosis: ICD-10-CM M25.531 Pain in right wrist Active Diagnosis [facility] Diagnosis: ICD-10-CM S62.342A Nondisp fx of base of third MC bone, right hand, init Active Diagnosis [facility] Diagnosis: ICD-10-CM Z46.1 Encounter for fitting and adjustment of hearing aid Active Diagnosis [facility] Diagnosis: ICD-10-CM H40.013 Open angle with borderline findings, low risk, bilateral Active Diagnosis [facility] Diagnosis: ICD-10-CM M25.562 Pain in left knee Active Diagnosis [facility] Diagnosis: ICD-10-CM R97.20 Elevated prostate specific antigen [PSA] Active Diagnosis [facility] Medications Combined list of outpatient medications from Department of Defense and [facility] facilities.Medications provided include 1) outpatient medications from the last 15 months, and 2) patient-reported medications. Medication Details Route Status Patient Instructions Prescription Expires Prescription Number Last Dispense Date Ordering Provider Order Date Order Qty Source DEXTRAN 70/GLYCERIN 0.2%/HYPROM ELLOSE 0.3% SOLN,OPH PUT 1 DROP IN EYE(S) TWICE A DAY FOR DRY EYES OPHTHA LMIC ACTIVE 09/30/2024 [id number] GODFREY ESCAMILLA N 2023 15 [place] [facility] DICLOFENAC NA 1% GEL,TOP APPLY 4 GRAM STRIP TO AFFECTED AREA EVERY 6 HOURS FOR PAIN TOPICA L ACTIVE 03/28/2025 [id number] John TORRES W 2023 100 [place] HYDROCHLORO THIAZIDE 12.5MG/INDER NOPRIL 10MG TAB TAKE 1 TABLET BY MOUTH DAILY FOR BLOOD PRESSURE /HEART ORAL ACTIVE 05/05/2025 [id number] 4 BELLE MUNGUIA R 2023 90 [place] [facility] [place] HYDROCHLORO THIAZIDE 12.5MG/INDER NOPRIL 10MG TAB TAKE 1 TABLET BY MOUTH DAILY FOR BLOOD PRESSURE /HEART ORAL DISCONT INUED (EDIT) 06/03/2024 [id number] BELLE MUNGUIA NDRA R 2023 60 [place] [facility] METOPROLOL SUCCINATE 50MG TAB,SA TAKE ONE-HALF TABLET BY MOUTH DAILY FOR BLOOD PRESSURE ORAL ACTIVE 07/03/2025 [id number] 5 JOSÉ MIGUEL HURST LALI 2024 45 [place] ROSUVASTATI N CA 40MG TAB TAKE ONE-HALF TABLET BY MOUTH DAILY FOR CHOLESTE ROL ORAL ACTIVE 04/05/2025 [id number] 5 BELLE MUNGUIAA R 2023 45 [place] [facility] Allergies, Adverse Reactions, Alerts Combined list of allergies from Department of Defense and [facility] Affairs facilities. It does not include entries that were removed or entered in error. Substance Category Reaction Severity Reaction type Status Date Reported Comments Source PENICILLIN Propensity to adverse reactions to drug (finding) Eruption active 1 [facility] Immunizations Combined list of available immunizations from the Department of Defense and Veterans Affairs facilities. Immunization Series Date Given Administered By Site Reaction Lot Number CVX Code Drug Entry Level Chemist Status Comments Source TDAP 1 2016 115 complet ed HISTORICA L INFORMATI ON - FROM OTHER REGISTRY, [place] [facility] Results Combined list of recent chemistry, hematology and other laboratory results from Department of Defense and Veterans Affairs, ranging from 15 months to all on record, depending upon the facility. Order Name Results Value Reference Range Date Interpretation Specimen Comments Source PANEL 1 CREATININE [MASS/VOLUM E] IN SERUM OR PLASMA 0.90 mg/dL 0.72 - 1.25 05/04 Specimen Type: PLASMA Comment: Estimated Glomerular Filtration Rate (eGFR) calculated using the 2020 Chronic Kidney Disease-Epi demiology (CKD-EPI) Collaborati on creatinine equation; units of measure are mL/min/1.73 m2. Results are only valid for adults (>=18 years) whose serum creatinine is in a steady state. eGFR calculation s are not valid for patients with acute kidney injury and for patients on dialysis. Creatinine- based estimates of kidney function may also be inaccurate in patients with reduced creatinine generation due to decreased muscle mass (e.g., malnutritio n, severe hypoalbumin emia, sarcopenia, chronic neuromuscul ar disease, amputations , severe heart failure or liver disease) and in patients with increased creatinine generation due to increased muscle mass (e.g., muscle builders, anabolic steroids) or increased dietary intake. As drug clearance is proportiona l to total GFR and not GFR indexed to body surface area (BSA), in individuals with a BSA substantial ly different than 1.73 m2, drug dosing should be based on the reported eGFR value de-indexed from BSA by multiplying by the individual' s BSA and dividing by 1.73. CKD is diagnosed based on abnormaliti es of kidney structure or function, present for >3 months, with implication s for health and disease. CKD is classified and staged based on cause, eGFR and albuminuria (quantified as urine albumin to creatinine ratio). An eGFR >60 mL/min/1.73 m2 in the absence of increased urine albumin excretion or structural abnormaliti es does not represent CKD. eGFR CKD Interpretat ion (mL/min/1.7 3 m2) stage >=90 G1 Normal 60-89 G2 Mild decrease 45-59 G3A Mild to moderate decrease 30-44 G3B Moderate to severe decrease 15-29 G4 Severe decrease <15 G5 Kidney failure Ordering Provider: HUDSON MUNGUIA RA Report Released Date/Time: Apr 04, 2024 03:22 PM Reporting Lab: [facility] [address] [address] Performing Lab: [facility] [address] [address] [facility] PANEL 1 UREA NITROGEN [MASS/VOLUM E] IN SERUM OR PLASMA 12 mg/dL 05/04 Specimen Type: PLASMA Comment: Estimated Glomerular Filtration Rate (eGFR) calculated using the 2020 Chronic Kidney Disease-Epi demiology (CKD-EPI) Collaborati on creatinine equation; units of measure are mL/min/1.73 m2. Results are only valid for adults (>=18 years) whose serum creatinine is in a steady state. eGFR calculation s are not valid for patients with acute kidney injury and for patients on dialysis. Creatinine- based estimates of kidney function may also be inaccurate in patients with reduced creatinine generation due to decreased muscle mass (e.g., malnutritio n, severe hypoalbumin emia, sarcopenia, chronic neuromuscul ar disease, amputations , severe heart failure or liver disease) and in patients with increased creatinine generation due to increased muscle mass (e.g., muscle builders, anabolic steroids) or increased dietary intake. As drug clearance is proportiona l to total GFR and not GFR indexed to body surface area (BSA), in individuals with a BSA substantial ly different than 1.73 m2, drug dosing should be based on the reported eGFR value de-indexed from BSA by multiplying by the individual' s BSA and dividing by 1.73. CKD is diagnosed based on abnormaliti es of kidney structure or function, present for >3 months, with implication s for health and disease. CKD is classified and staged based on cause, eGFR and albuminuria (quantified as urine albumin to creatinine ratio). An eGFR >60 mL/min/1.73 m2 in the absence of increased urine albumin excretion or structural abnormaliti es does not represent CKD. eGFR CKD Interpretat ion (mL/min/1.7 3 m2) stage >=90 G1 Normal 60-89 G2 Mild decrease 45-59 G3A Mild to moderate decrease 30-44 G3B Moderate to severe decrease 15-29 G4 Severe decrease <15 G5 Kidney failure Ordering Provider: HUDSON MUNGUIA RA Report Released Date/Time: Apr 04, 2024 03:22 PM Reporting Lab: [facility] [address] [address] Performing Lab: [facility] [address] [address] [facility] PANEL 1 GLUCOSE [MASS/VOLUM E] IN SERUM OR PLASMA 111 mg/dL 74 - 100 05/04 H Specimen Type: PLASMA Comment: Estimated Glomerular Filtration Rate (eGFR) calculated using the 2020 Chronic Kidney Disease-Epi demiology (CKD-EPI) Collaborati on creatinine equation; units of measure are mL/min/1.73 m2. Results are only valid for adults (>=18 years) whose serum creatinine is in a steady state. eGFR calculation s are not valid for patients with acute kidney injury and for patients on dialysis. Creatinine- based estimates of kidney function may also be inaccurate in patients with reduced creatinine generation due to decreased muscle mass (e.g., malnutritio n, severe hypoalbumin emia, sarcopenia, chronic neuromuscul ar disease, amputations , severe heart failure or liver disease) and in patients with increased creatinine generation due to increased muscle mass (e.g., muscle builders, anabolic steroids) or increased dietary intake. As drug clearance is proportiona l to total GFR and not GFR indexed to body surface area (BSA), in individuals with a BSA substantial ly different than 1.73 m2, drug dosing should be based on the reported eGFR value de-indexed from BSA by multiplying by the individual' s BSA and dividing by 1.73. CKD is diagnosed based on abnormaliti es of kidney structure or function, present for >3 months, with implication s for health and disease. CKD is classified and staged based on cause, eGFR and albuminuria (quantified as urine albumin to creatinine ratio). An eGFR >60 mL/min/1.73 m2 in the absence of increased urine albumin excretion or structural abnormaliti es does not represent CKD. eGFR CKD Interpretat ion (mL/min/1.7 3 m2) stage >=90 G1 Normal 60-89 G2 Mild decrease 45-59 G3A Mild to moderate decrease 30-44 G3B Moderate to severe decrease 15-29 G4 Severe decrease <15 G5 Kidney failure Ordering Provider: HUDSON MUNGUIA RA Report Released Date/Time: Apr 04, 2024 03:22 PM Reporting Lab: [facility] [address] [address] Performing Lab: [facility] [address] [address] [facility] PANEL 1 SODIUM [MOLES/VOLU ME] IN SERUM OR PLASMA 139 mmol/L 136 - 145 05/04 Specimen Type: PLASMA Comment: Estimated Glomerular Filtration Rate (eGFR) calculated using the 2020 Chronic Kidney Disease-Epi demiology (CKD-EPI) Collaborati on creatinine equation; units of measure are mL/min/1.73 m2. Results are only valid for adults (>=18 years) whose serum creatinine is in a steady state. eGFR calculation s are not valid for patients with acute kidney injury and for patients on dialysis. Creatinine- based estimates of kidney function may also be inaccurate in patients with reduced creatinine generation due to decreased muscle mass (e.g., malnutritio n, severe hypoalbumin emia, sarcopenia, chronic neuromuscul ar disease, amputations , severe heart failure or liver disease) and in patients with increased creatinine generation due to increased muscle mass (e.g., muscle builders, anabolic steroids) or increased dietary intake. As drug clearance is proportiona l to total GFR and not GFR indexed to body surface area (BSA), in individuals with a BSA substantial ly different than 1.73 m2, drug dosing should be based on the reported eGFR value de-indexed from BSA by multiplying by the individual' s BSA and dividing by 1.73. CKD is diagnosed based on abnormaliti es of kidney structure or function, present for >3 months, with implication s for health and disease. CKD is classified and staged based on cause, eGFR and albuminuria (quantified as urine albumin to creatinine ratio). An eGFR >60 mL/min/1.73 m2 in the absence of increased urine albumin excretion or structural abnormaliti es does not represent CKD. eGFR CKD Interpretat ion (mL/min/1.7 3 m2) stage >=90 G1 Normal 60-89 G2 Mild decrease 45-59 G3A Mild to moderate decrease 30-44 G3B Moderate to severe decrease 15-29 G4 Severe decrease <15 G5 Kidney failure Ordering Provider: HUDSON MUNGUIA RA Report Released Date/Time: Apr 04, 2024 03:22 PM Reporting Lab: [facility] [address] [facility] [address] Performing Lab: [facility] [address] [facility] [address] [facility] PANEL 1 POTASSIUM [MOLES/VOLU ME] IN SERUM OR PLASMA 4.0 mmol/L 3.5 - 5.1 05/04 Specimen Type: PLASMA Comment: Estimated Glomerular Filtration Rate (eGFR) calculated using the 2020 Chronic Kidney Disease-Epi demiology (CKD-EPI) Collaborati on creatinine equation; units of measure are mL/min/1.73 m2. Results are only valid for adults (>=18 years) whose serum creatinine is in a steady state. eGFR calculation s are not valid for patients with acute kidney injury and for patients on dialysis. Creatinine- based estimates of kidney function may also be inaccurate in patients with reduced creatinine generation due to decreased muscle mass (e.g., malnutritio n, severe hypoalbumin emia, sarcopenia, chronic neuromuscul ar disease, amputations , severe heart failure or liver disease) and in patients with increased creatinine generation due to increased muscle mass (e.g., muscle builders, anabolic steroids) or increased dietary intake. As drug clearance is proportiona l to total GFR and not GFR indexed to body surface area (BSA), in individuals with a BSA substantial ly different than 1.73 m2, drug dosing should be based on the reported eGFR value de-indexed from BSA by multiplying by the individual' s BSA and dividing by 1.73. CKD is diagnosed based on abnormaliti es of kidney structure or function, present for >3 months, with implication s for health and disease. CKD is classified and staged based on cause, eGFR and albuminuria (quantified as urine albumin to creatinine ratio). An eGFR >60 mL/min/1.73 m2 in the absence of increased urine albumin excretion or structural abnormaliti es does not represent CKD. eGFR CKD Interpretat ion (mL/min/1.7 3 m2) stage >=90 G1 Normal 60-89 G2 Mild decrease 45-59 G3A Mild to moderate decrease 30-44 G3B Moderate to severe decrease 15-29 G4 Severe decrease <15 G5 Kidney failure Ordering Provider: HUDSON MUNGUIA RA Report Released Date/Time: Apr 04, 2024 03:22 PM Reporting Lab: [facility] [address] [facility] [address] Performing Lab: [facility] [address] [address] [facility] PANEL 1 CHLORIDE [MOLES/VOLU ME] IN SERUM OR PLASMA 104 mmol/L 98 - 107 05/04 Specimen Type: PLASMA Comment: Estimated Glomerular Filtration Rate (eGFR) calculated using the 2020 Chronic Kidney Disease-Epi demiology (CKD-EPI) Collaborati on creatinine equation; units of measure are mL/min/1.73 m2. Results are only valid for adults (>=18 years) whose serum creatinine is in a steady state. eGFR calculation s are not valid for patients with acute kidney injury and for patients on dialysis. Creatinine- based estimates of kidney function may also be inaccurate in patients with reduced creatinine generation due to decreased muscle mass (e.g., malnutritio n, severe hypoalbumin emia, sarcopenia, chronic neuromuscul ar disease, amputations , severe heart failure or liver disease) and in patients with increased creatinine generation due to increased muscle mass (e.g., muscle builders, anabolic steroids) or increased dietary intake. As drug clearance is proportiona l to total GFR and not GFR indexed to body surface area (BSA), in individuals with a BSA substantial ly different than 1.73 m2, drug dosing should be based on the reported eGFR value de-indexed from BSA by multiplying by the individual' s BSA and dividing by 1.73. CKD is diagnosed based on abnormaliti es of kidney structure or function, present for >3 months, with implication s for health and disease. CKD is classified and staged based on cause, eGFR and albuminuria (quantified as urine albumin to creatinine ratio). An eGFR >60 mL/min/1.73 m2 in the absence of increased urine albumin excretion or structural abnormaliti es does not represent CKD. eGFR CKD Interpretat ion (mL/min/1.7 3 m2) stage >=90 G1 Normal 60-89 G2 Mild decrease 45-59 G3A Mild to moderate decrease 30-44 G3B Moderate to severe decrease 15-29 G4 Severe decrease <15 G5 Kidney failure Ordering Provider: HUDSON MUNGUIA RA Report Released Date/Time: Apr 04, 2024 03:22 PM Reporting Lab: [facility] [address] [place] [phone] Performing Lab: [facility] [address] [address] [facility] PANEL 1 CARBON DIOXIDE, TOTAL [MOLES/VOLU ME] IN SERUM OR PLASMA 29 mmol/L 05/04 Specimen Type: PLASMA Comment: Estimated Glomerular Filtration Rate (eGFR) calculated using the 2020 Chronic Kidney Disease-Epi demiology (CKD-EPI) Collaborati on creatinine equation; units of measure are mL/min/1.73 m2. Results are only valid for adults (>=18 years) whose serum creatinine is in a steady state. eGFR calculation s are not valid for patients with acute kidney injury and for patients on dialysis. Creatinine- based estimates of kidney function may also be inaccurate in patients with reduced creatinine generation due to decreased muscle mass (e.g., malnutritio n, severe hypoalbumin emia, sarcopenia, chronic neuromuscul ar disease, amputations , severe heart failure or liver disease) and in patients with increased creatinine generation due to increased muscle mass (e.g., muscle builders, anabolic steroids) or increased dietary intake. As drug clearance is proportiona l to total GFR and not GFR indexed to body surface area (BSA), in individuals with a BSA substantial ly different than 1.73 m2, drug dosing should be based on the reported eGFR value de-indexed from BSA by multiplying by the individual' s BSA and dividing by 1.73. CKD is diagnosed based on abnormaliti es of kidney structure or function, present for >3 months, with implication s for health and disease. CKD is classified and staged based on cause, eGFR and albuminuria (quantified as urine albumin to creatinine ratio). An eGFR >60 mL/min/1.73 m2 in the absence of increased urine albumin excretion or structural abnormaliti es does not represent CKD. eGFR CKD Interpretat ion (mL/min/1.7 3 m2) stage >=90 G1 Normal 60-89 G2 Mild decrease 45-59 G3A Mild to moderate decrease 30-44 G3B Moderate to severe decrease 15-29 G4 Severe decrease <15 G5 Kidney failure Ordering Provider: HUDSON MUNGUIA RA Report Released Date/Time: Apr 04, 2024 03:22 PM Reporting Lab: [facility] [address] [address] Performing Lab: YASMANIDENZELSarbjit [address] [address] [facility] PANEL 1 CALCIUM [MASS/VOLUM E] IN SERUM OR PLASMA 9.9 mg/dL 8.4 - 10.2 05/04 Specimen Type: PLASMA Comment: Estimated Glomerular Filtration Rate (eGFR) calculated using the 2020 Chronic Kidney Disease-Epi demiology (CKD-EPI) Collaborati on creatinine equation; units of measure are mL/min/1.73 m2. Results are only valid for adults (>=18 years) whose serum creatinine is in a steady state. eGFR calculation s are not valid for patients with acute kidney injury and for patients on dialysis. Creatinine- based estimates of kidney function may also be inaccurate in patients with reduced creatinine generation due to decreased muscle mass (e.g., malnutritio n, severe hypoalbumin emia, sarcopenia, chronic neuromuscul ar disease, amputations , severe heart failure or liver disease) and in patients with increased creatinine generation due to increased muscle mass (e.g., muscle builders, anabolic steroids) or increased dietary intake. As drug clearance is proportiona l to total GFR and not GFR indexed to body surface area (BSA), in individuals with a BSA substantial ly different than 1.73 m2, drug dosing should be based on the reported eGFR value de-indexed from BSA by multiplying by the individual' s BSA and dividing by 1.73. CKD is diagnosed based on abnormaliti es of kidney structure or function, present for >3 months, with implication s for health and disease. CKD is classified and staged based on cause, eGFR and albuminuria (quantified as urine albumin to creatinine ratio). An eGFR >60 mL/min/1.73 m2 in the absence of increased urine albumin excretion or structural abnormaliti es does not represent CKD. eGFR CKD Interpretat ion (mL/min/1.7 3 m2) stage >=90 G1 Normal 60-89 G2 Mild decrease 45-59 G3A Mild to moderate decrease 30-44 G3B Moderate to severe decrease 15-29 G4 Severe decrease <15 G5 Kidney failure Ordering Provider: HUDSON MUNGUIA RA Report Released Date/Time: Apr 04, 2024 03:22 PM Reporting Lab: [facility] [address] [address] Performing Lab: [facility] [address] [address] [facility] PANEL 1 ANION GAP 3 IN SERUM OR PLASMA 6 meq/L 3 - 19 05/04 Specimen Type: PLASMA Comment: Estimated Glomerular Filtration Rate (eGFR) calculated using the 2020 Chronic Kidney Disease-Epi demiology (CKD-EPI) Collaborati on creatinine equation; units of measure are mL/min/1.73 m2. Results are only valid for adults (>=18 years) whose serum creatinine is in a steady state. eGFR calculation s are not valid for patients with acute kidney injury and for patients on dialysis. Creatinine- based estimates of kidney function may also be inaccurate in patients with reduced creatinine generation due to decreased muscle mass (e.g., malnutritio n, severe hypoalbumin emia, sarcopenia, chronic neuromuscul ar disease, amputations , severe heart failure or liver disease) and in patients with increased creatinine generation due to increased muscle mass (e.g., muscle builders, anabolic steroids) or increased dietary intake. As drug clearance is proportiona l to total GFR and not GFR indexed to body surface area (BSA), in individuals with a BSA substantial ly different than 1.73 m2, drug dosing should be based on the reported eGFR value de-indexed from BSA by multiplying by the individual' s BSA and dividing by 1.73. CKD is diagnosed based on abnormaliti es of kidney structure or function, present for >3 months, with implication s for health and disease. CKD is classified and staged based on cause, eGFR and albuminuria (quantified as urine albumin to creatinine ratio). An eGFR >60 mL/min/1.73 m2 in the absence of increased urine albumin excretion or structural abnormaliti es does not represent CKD. eGFR CKD Interpretat ion (mL/min/1.7 3 m2) stage >=90 G1 Normal 60-89 G2 Mild decrease 45-59 G3A Mild to moderate decrease 30-44 G3B Moderate to severe decrease 15-29 G4 Severe decrease <15 G5 Kidney failure Ordering Provider: HUDSON MUNGUIA RA Report Released Date/Time: Apr 04, 2024 03:22 PM Reporting Lab: [facility] [address] [facility] [address] Performing Lab: [facility] [address] [place] [phone] [facility] 1 GLOMERULAR FILTRATION RATE/1.73 SQ M.PREDICTED [VOLUME RATE/AREA] IN SERUM, PLASMA OR BLOOD BY CREATININE- BASED FORMULA (CKD-EPI 2020) >90 05/04 Specimen Type: PLASMA Comment: Estimated Glomerular Filtration Rate (eGFR) calculated using the 2020 Chronic Kidney Disease-Epi demiology (CKD-EPI) Collaborati on creatinine equation; units of measure are mL/min/1.73 m2. Results are only valid for adults (>=18 years) whose serum creatinine is in a steady state. eGFR calculation s are not valid for patients with acute kidney injury and for patients on dialysis. Creatinine- based estimates of kidney function may also be inaccurate in patients with reduced creatinine generation due to decreased muscle mass (e.g., malnutritio n, severe hypoalbumin emia, sarcopenia, chronic neuromuscul ar disease, amputations , severe heart failure or liver disease) and in patients with increased creatinine generation due to increased muscle mass (e.g., muscle builders, anabolic steroids) or increased dietary intake. As drug clearance is proportiona l to total GFR and not GFR indexed to body surface area (BSA), in individuals with a BSA substantial ly different than 1.73 m2, drug dosing should be based on the reported eGFR value de-indexed from BSA by multiplying by the individual' s BSA and dividing by 1.73. CKD is diagnosed based on abnormaliti es of kidney structure or function, present for >3 months, with implication s for health and disease. CKD is classified and staged based on cause, eGFR and albuminuria (quantified as urine albumin to creatinine ratio). An eGFR >60 mL/min/1.73 m2 in the absence of increased urine albumin excretion or structural abnormaliti es does not represent CKD. eGFR CKD Interpretat ion (mL/min/1.7 3 m2) stage >=90 G1 Normal 60-89 G2 Mild decrease 45-59 G3A Mild to moderate decrease 30-44 G3B Moderate to severe decrease 15-29 G4 Severe decrease <15 G5 Kidney failure Ordering Provider: HUDSON MUNGUIA RA Report Released Date/Time: Apr 04, 2024 03:22 PM Reporting Lab: [facility] [address] [address] Performing Lab: [facility] [address] [address] [facility] PANEL 5 CREATININE [MASS/VOLUM E] IN SERUM OR PLASMA 0.88 mg/dL 0.72 - 1.25 04/04 Specimen Type: PLASMA Comment: Estimated Glomerular Filtration Rate (eGFR) calculated using the 2020 Chronic Kidney Disease-Epi demiology (CKD-EPI) Collaborati on creatinine equation; units of measure are mL/min/1.73 m2. Results are only valid for adults (>=18 years) whose serum creatinine is in a steady state. eGFR calculation s are not valid for patients with acute kidney injury and for patients on dialysis. Creatinine- based estimates of kidney function may also be inaccurate in patients with reduced creatinine generation due to decreased muscle mass (e.g., malnutritio n, severe hypoalbumin emia, sarcopenia, chronic neuromuscul ar disease, amputations , severe heart failure or liver disease) and in patients with increased creatinine generation due to increased muscle mass (e.g., muscle builders, anabolic steroids) or increased dietary intake. As drug clearance is proportiona l to total GFR and not GFR indexed to body surface area (BSA), in individuals with a BSA substantial ly different than 1.73 m2, drug dosing should be based on the reported eGFR value de-indexed from BSA by multiplying by the individual' s BSA and dividing by 1.73. CKD is diagnosed based on abnormaliti es of kidney structure or function, present for >3 months, with implication s for health and disease. CKD is classified and staged based on cause, eGFR and albuminuria (quantified as urine albumin to creatinine ratio). An eGFR >60 mL/min/1.73 m2 in the absence of increased urine albumin excretion or structural abnormaliti es does not represent CKD. eGFR CKD Interpretat ion (mL/min/1.7 3 m2) stage >=90 G1 Normal 60-89 G2 Mild decrease 45-59 G3A Mild to moderate decrease 30-44 G3B Moderate to severe decrease 15-29 G4 Severe decrease <15 G5 Kidney failure Ordering Provider: HUDSON MUNGUIA RA Report Released Date/Time: Apr 03, 2024 11:13 AM Reporting Lab: [facility] [address] [address] Performing Lab: CAR[facility] [address] [address] [facility] PANEL 5 UREA NITROGEN [MASS/VOLUM E] IN SERUM OR PLASMA 8 mg/dL 04/04 L Specimen Type: PLASMA Comment: Estimated Glomerular Filtration Rate (eGFR) calculated using the 2020 Chronic Kidney Disease-Epi demiology (CKD-EPI) Collaborati on creatinine equation; units of measure are mL/min/1.73 m2. Results are only valid for adults (>=18 years) whose serum creatinine is in a steady state. eGFR calculation s are not valid for patients with acute kidney injury and for patients on dialysis. Creatinine- based estimates of kidney function may also be inaccurate in patients with reduced creatinine generation due to decreased muscle mass (e.g., malnutritio n, severe hypoalbumin emia, sarcopenia, chronic neuromuscul ar disease, amputations , severe heart failure or liver disease) and in patients with increased creatinine generation due to increased muscle mass (e.g., muscle builders, anabolic steroids) or increased dietary intake. As drug clearance is proportiona l to total GFR and not GFR indexed to body surface area (BSA), in individuals with a BSA substantial ly different than 1.73 m2, drug dosing should be based on the reported eGFR value de-indexed from BSA by multiplying by the individual' s BSA and dividing by 1.73. CKD is diagnosed based on abnormaliti es of kidney structure or function, present for >3 months, with implication s for health and disease. CKD is classified and staged based on cause, eGFR and albuminuria (quantified as urine albumin to creatinine ratio). An eGFR >60 mL/min/1.73 m2 in the absence of increased urine albumin excretion or structural abnormaliti es does not represent CKD. eGFR CKD Interpretat ion (mL/min/1.7 3 m2) stage >=90 G1 Normal 60-89 G2 Mild decrease 45-59 G3A Mild to moderate decrease 30-44 G3B Moderate to severe decrease 15-29 G4 Severe decrease <15 G5 Kidney failure Ordering Provider: HUDSON MUNGUIA RA Report Released Date/Time: Apr 03, 2024 11:13 AM Reporting Lab: [facility] [address] [address] Performing Lab: CARL[facility] [address] [address] [facility] PANEL 5 GLUCOSE [MASS/VOLUM E] IN SERUM OR PLASMA 101 mg/dL 74 - 100 04/04 H Specimen Type: PLASMA Comment: Estimated Glomerular Filtration Rate (eGFR) calculated using the 2020 Chronic Kidney Disease-Epi demiology (CKD-EPI) Collaborati on creatinine equation; units of measure are mL/min/1.73 m2. Results are only valid for adults (>=18 years) whose serum creatinine is in a steady state. eGFR calculation s are not valid for patients with acute kidney injury and for patients on dialysis. Creatinine- based estimates of kidney function may also be inaccurate in patients with reduced creatinine generation due to decreased muscle mass (e.g., malnutritio n, severe hypoalbumin emia, sarcopenia, chronic neuromuscul ar disease, amputations , severe heart failure or liver disease) and in patients with increased creatinine generation due to increased muscle mass (e.g., muscle builders, anabolic steroids) or increased dietary intake. As drug clearance is proportiona l to total GFR and not GFR indexed to body surface area (BSA), in individuals with a BSA substantial ly different than 1.73 m2, drug dosing should be based on the reported eGFR value de-indexed from BSA by multiplying by the individual' s BSA and dividing by 1.73. CKD is diagnosed based on abnormaliti es of kidney structure or function, present for >3 months, with implication s for health and disease. CKD is classified and staged based on cause, eGFR and albuminuria (quantified as urine albumin to creatinine ratio). An eGFR >60 mL/min/1.73 m2 in the absence of increased urine albumin excretion or structural abnormaliti es does not represent CKD. eGFR CKD Interpretat ion (mL/min/1.7 3 m2) stage >=90 G1 Normal 60-89 G2 Mild decrease 45-59 G3A Mild to moderate decrease 30-44 G3B Moderate to severe decrease 15-29 G4 Severe decrease <15 G5 Kidney failure Ordering Provider: HUDSON MUNGUIA RA Report Released Date/Time: Apr 03, 2024 11:13 AM Reporting Lab: [facility] [address] [address] Performing Lab: [facility] [address] [address] [facility] PANEL 5 SODIUM [MOLES/VOLU ME] IN SERUM OR PLASMA 143 mmol/L 136 - 145 04/04 Specimen Type: PLASMA Comment: Estimated Glomerular Filtration Rate (eGFR) calculated using the 2020 Chronic Kidney Disease-Epi demiology (CKD-EPI) Collaborati on creatinine equation; units of measure are mL/min/1.73 m2. Results are only valid for adults (>=18 years) whose serum creatinine is in a steady state. eGFR calculation s are not valid for patients with acute kidney injury and for patients on dialysis. Creatinine- based estimates of kidney function may also be inaccurate in patients with reduced creatinine generation due to decreased muscle mass (e.g., malnutritio n, severe hypoalbumin emia, sarcopenia, chronic neuromuscul ar disease, amputations , severe heart failure or liver disease) and in patients with increased creatinine generation due to increased muscle mass (e.g., muscle builders, anabolic steroids) or increased dietary intake. As drug clearance is proportiona l to total GFR and not GFR indexed to body surface area (BSA), in individuals with a BSA substantial ly different than 1.73 m2, drug dosing should be based on the reported eGFR value de-indexed from BSA by multiplying by the individual' s BSA and dividing by 1.73. CKD is diagnosed based on abnormaliti es of kidney structure or function, present for >3 months, with implication s for health and disease. CKD is classified and staged based on cause, eGFR and albuminuria (quantified as urine albumin to creatinine ratio). An eGFR >60 mL/min/1.73 m2 in the absence of increased urine albumin excretion or structural abnormaliti es does not represent CKD. eGFR CKD Interpretat ion (mL/min/1.7 3 m2) stage >=90 G1 Normal 60-89 G2 Mild decrease 45-59 G3A Mild to moderate decrease 30-44 G3B Moderate to severe decrease 15-29 G4 Severe decrease <15 G5 Kidney failure Ordering Provider: HUDSON MUNGUIA RA Report Released Date/Time: Apr 03, 2024 11:13 AM Reporting Lab: [facility] [address] [address] Performing Lab: [facility] [address] [address] [facility] PANEL 5 POTASSIUM [MOLES/VOLU ME] IN SERUM OR PLASMA 3.8 mmol/L 3.5 - 5.1 04/04 Specimen Type: PLASMA Comment: Estimated Glomerular Filtration Rate (eGFR) calculated using the 2020 Chronic Kidney Disease-Epi demiology (CKD-EPI) Collaborati on creatinine equation; units of measure are mL/min/1.73 m2. Results are only valid for adults (>=18 years) whose serum creatinine is in a steady state. eGFR calculation s are not valid for patients with acute kidney injury and for patients on dialysis. Creatinine- based estimates of kidney function may also be inaccurate in patients with reduced creatinine generation due to decreased muscle mass (e.g., malnutritio n, severe hypoalbumin emia, sarcopenia, chronic neuromuscul ar disease, amputations , severe heart failure or liver disease) and in patients with increased creatinine generation due to increased muscle mass (e.g., muscle builders, anabolic steroids) or increased dietary intake. As drug clearance is proportiona l to total GFR and not GFR indexed to body surface area (BSA), in individuals with a BSA substantial ly different than 1.73 m2, drug dosing should be based on the reported eGFR value de-indexed from BSA by multiplying by the individual' s BSA and dividing by 1.73. CKD is diagnosed based on abnormaliti es of kidney structure or function, present for >3 months, with implication s for health and disease. CKD is classified and staged based on cause, eGFR and albuminuria (quantified as urine albumin to creatinine ratio). An eGFR >60 mL/min/1.73 m2 in the absence of increased urine albumin excretion or structural abnormaliti es does not represent CKD. eGFR CKD Interpretat ion (mL/min/1.7 3 m2) stage >=90 G1 Normal 60-89 G2 Mild decrease 45-59 G3A Mild to moderate decrease 30-44 G3B Moderate to severe decrease 15-29 G4 Severe decrease <15 G5 Kidney failure Ordering Provider: HUDSON MUNGUIA RA Report Released Date/Time: Apr 03, 2024 11:13 AM Reporting Lab: [facility] [address] [address] Performing Lab: [facility] [address] [address] [facility] PANEL 5 CHLORIDE [MOLES/VOLU ME] IN SERUM OR PLASMA 108 mmol/L 98 - 107 04/04 H Specimen Type: PLASMA Comment: Estimated Glomerular Filtration Rate (eGFR) calculated using the 2020 Chronic Kidney Disease-Epi demiology (CKD-EPI) Collaborati on creatinine equation; units of measure are mL/min/1.73 m2. Results are only valid for adults (>=18 years) whose serum creatinine is in a steady state. eGFR calculation s are not valid for patients with acute kidney injury and for patients on dialysis. Creatinine- based estimates of kidney function may also be inaccurate in patients with reduced creatinine generation due to decreased muscle mass (e.g., malnutritio n, severe hypoalbumin emia, sarcopenia, chronic neuromuscul ar disease, amputations , severe heart failure or liver disease) and in patients with increased creatinine generation due to increased muscle mass (e.g., muscle builders, anabolic steroids) or increased dietary intake. As drug clearance is proportiona l to total GFR and not GFR indexed to body surface area (BSA), in individuals with a BSA substantial ly different than 1.73 m2, drug dosing should be based on the reported eGFR value de-indexed from BSA by multiplying by the individual' s BSA and dividing by 1.73. CKD is diagnosed based on abnormaliti es of kidney structure or function, present for >3 months, with implication s for health and disease. CKD is classified and staged based on cause, eGFR and albuminuria (quantified as urine albumin to creatinine ratio). An eGFR >60 mL/min/1.73 m2 in the absence of increased urine albumin excretion or structural abnormaliti es does not represent CKD. eGFR CKD Interpretat ion (mL/min/1.7 3 m2) stage >=90 G1 Normal 60-89 G2 Mild decrease 45-59 G3A Mild to moderate decrease 30-44 G3B Moderate to severe decrease 15-29 G4 Severe decrease <15 G5 Kidney failure Ordering Provider: HUDSON MUNGUIA RA Report Released Date/Time: Apr 03, 2024 11:13 AM Reporting Lab: [facility] [address] [address] Performing Lab: [facility] [address] [address] [facility] CARBON DIOXIDE, TOTAL [MOLES/VOLU ME] IN SERUM OR PLASMA 26 mmol/L 22 - 04/04 Specimen Type: PLASMA Comment: Estimated Glomerular Filtration Rate (eGFR) calculated using the 2020 Chronic Kidney Disease-Epi demiology (CKD-EPI) Collaborati on creatinine equation; units of measure are mL/min/1.73 m2. Results are only valid for adults (>=18 years) whose serum creatinine is in a steady state. eGFR calculation s are not valid for patients with acute kidney injury and for patients on dialysis. Creatinine- based estimates of kidney function may also be inaccurate in patients with reduced creatinine generation due to decreased muscle mass (e.g., malnutritio n, severe hypoalbumin emia, sarcopenia, chronic neuromuscul ar disease, amputations , severe heart failure or liver disease) and in patients with increased creatinine generation due to increased muscle mass (e.g., muscle builders, anabolic steroids) or increased dietary intake. As drug clearance is proportiona l to total GFR and not GFR indexed to body surface area (BSA), in individuals with a BSA substantial ly different than 1.73 m2, drug dosing should be based on the reported eGFR value de-indexed from BSA by multiplying by the individual' s BSA and dividing by 1.73. CKD is diagnosed based on abnormaliti es of kidney structure or function, present for >3 months, with implication s for health and disease. CKD is classified and staged based on cause, eGFR and albuminuria (quantified as urine albumin to creatinine ratio). An eGFR >60 mL/min/1.73 m2 in the absence of increased urine albumin excretion or structural abnormaliti es does not represent CKD. eGFR CKD Interpretat ion (mL/min/1.7 3 m2) stage >=90 G1 Normal 60-89 G2 Mild decrease 45-59 G3A Mild to moderate decrease 30-44 G3B Moderate to severe decrease 15-29 G4 Severe decrease <15 G5 Kidney failure Ordering Provider: HUDSON MUNGUIA RA Report Released Date/Time: Apr 03, 2024 11:13 AM Reporting Lab: [facility] [address] [facility] [address] Performing Lab: [facility] [address] [facility] [address] [facility] PANEL 5 CALCIUM [MASS/VOLUM E] IN SERUM OR PLASMA 9.5 mg/dL 8.4 - 10.2 04/04 Specimen Type: PLASMA Comment: Estimated Glomerular Filtration Rate (eGFR) calculated using the 2020 Chronic Kidney Disease-Epi demiology (CKD-EPI) Collaborati on creatinine equation; units of measure are mL/min/1.73 m2. Results are only valid for adults (>=18 years) whose serum creatinine is in a steady state. eGFR calculation s are not valid for patients with acute kidney injury and for patients on dialysis. Creatinine- based estimates of kidney function may also be inaccurate in patients with reduced creatinine generation due to decreased muscle mass (e.g., malnutritio n, severe hypoalbumin emia, sarcopenia, chronic neuromuscul ar disease, amputations , severe heart failure or liver disease) and in patients with increased creatinine generation due to increased muscle mass (e.g., muscle builders, anabolic steroids) or increased dietary intake. As drug clearance is proportiona l to total GFR and not GFR indexed to body surface area (BSA), in individuals with a BSA substantial ly different than 1.73 m2, drug dosing should be based on the reported eGFR value de-indexed from BSA by multiplying by the individual' s BSA and dividing by 1.73. CKD is diagnosed based on abnormaliti es of kidney structure or function, present for >3 months, with implication s for health and disease. CKD is classified and staged based on cause, eGFR and albuminuria (quantified as urine albumin to creatinine ratio). An eGFR >60 mL/min/1.73 m2 in the absence of increased urine albumin excretion or structural abnormaliti es does not represent CKD. eGFR CKD Interpretat ion (mL/min/1.7 3 m2) stage >=90 G1 Normal 60-89 G2 Mild decrease 45-59 G3A Mild to moderate decrease 30-44 G3B Moderate to severe decrease 15-29 G4 Severe decrease <15 G5 Kidney failure Ordering Provider: HUDSON MUNGUIA RA Report Released Date/Time: Apr 03, 2024 11:13 AM Reporting Lab: [facility] [address] [address] Performing Lab: [facility] [address] [address] [facility] PANEL 5 PROTEIN [MASS/VOLUM E] IN SERUM OR PLASMA 7.8 g/dL 6.4 - 8.3 04/04 Specimen Type: PLASMA Comment: Estimated Glomerular Filtration Rate (eGFR) calculated using the 2020 Chronic Kidney Disease-Epi demiology (CKD-EPI) Collaborati on creatinine equation; units of measure are mL/min/1.73 m2. Results are only valid for adults (>=18 years) whose serum creatinine is in a steady state. eGFR calculation s are not valid for patients with acute kidney injury and for patients on dialysis. Creatinine- based estimates of kidney function may also be inaccurate in patients with reduced creatinine generation due to decreased muscle mass (e.g., malnutritio n, severe hypoalbumin emia, sarcopenia, chronic neuromuscul ar disease, amputations , severe heart failure or liver disease) and in patients with increased creatinine generation due to increased muscle mass (e.g., muscle builders, anabolic steroids) or increased dietary intake. As drug clearance is proportiona l to total GFR and not GFR indexed to body surface area (BSA), in individuals with a BSA substantial ly different than 1.73 m2, drug dosing should be based on the reported eGFR value de-indexed from BSA by multiplying by the individual' s BSA and dividing by 1.73. CKD is diagnosed based on abnormaliti es of kidney structure or function, present for >3 months, with implication s for health and disease. CKD is classified and staged based on cause, eGFR and albuminuria (quantified as urine albumin to creatinine ratio). An eGFR >60 mL/min/1.73 m2 in the absence of increased urine albumin excretion or structural abnormaliti es does not represent CKD. eGFR CKD Interpretat ion (mL/min/1.7 3 m2) stage >=90 G1 Normal 60-89 G2 Mild decrease 45-59 G3A Mild to moderate decrease 30-44 G3B Moderate to severe decrease 15-29 G4 Severe decrease <15 G5 Kidney failure Ordering Provider: HUDSON MUNGUIA RA Report Released Date/Time: Apr 03, 2024 11:13 AM Reporting Lab: [facility] [address] [address] Performing Lab: CAR[facility] O[facility] [address] [address] [facility] PANEL 5 ALBUMIN [MASS/VOLUM E] IN SERUM OR PLASMA 4.6 g/dL 3.5 - 5.2 04/04 Specimen Type: PLASMA Comment: Estimated Glomerular Filtration Rate (eGFR) calculated using the 2020 Chronic Kidney Disease-Epi demiology (CKD-EPI) Collaborati on creatinine equation; units of measure are mL/min/1.73 m2. Results are only valid for adults (>=18 years) whose serum creatinine is in a steady state. eGFR calculation s are not valid for patients with acute kidney injury and for patients on dialysis. Creatinine- based estimates of kidney function may also be inaccurate in patients with reduced creatinine generation due to decreased muscle mass (e.g., malnutritio n, severe hypoalbumin emia, sarcopenia, chronic neuromuscul ar disease, amputations , severe heart failure or liver disease) and in patients with increased creatinine generation due to increased muscle mass (e.g., muscle builders, anabolic steroids) or increased dietary intake. As drug clearance is proportiona l to total GFR and not GFR indexed to body surface area (BSA), in individuals with a BSA substantial ly different than 1.73 m2, drug dosing should be based on the reported eGFR value de-indexed from BSA by multiplying by the individual' s BSA and dividing by 1.73. CKD is diagnosed based on abnormaliti es of kidney structure or function, present for >3 months, with implication s for health and disease. CKD is classified and staged based on cause, eGFR and albuminuria (quantified as urine albumin to creatinine ratio). An eGFR >60 mL/min/1.73 m2 in the absence of increased urine albumin excretion or structural abnormaliti es does not represent CKD. eGFR CKD Interpretat ion (mL/min/1.7 3 m2) stage >=90 G1 Normal 60-89 G2 Mild decrease 45-59 G3A Mild to moderate decrease 30-44 G3B Moderate to severe decrease 15-29 G4 Severe decrease <15 G5 Kidney failure Ordering Provider: HUDSON MUNGUIA RA Report Released Date/Time: Apr 03, 2024 11:13 AM Reporting Lab: [address] [address] Performing Lab: [address] [address] [facility] PANEL 5 BILIRUBIN.T OTAL [MASS/VOLUM E] IN SERUM OR PLASMA 1.0 mg/dL 0.2 - 1.2 04/04 Specimen Type: PLASMA Comment: Estimated Glomerular Filtration Rate (eGFR) calculated using the 2020 Chronic Kidney Disease-Epi demiology (CKD-EPI) Collaborati on creatinine equation; units of measure are mL/min/1.73 m2. Results are only valid for adults (>=18 years) whose serum creatinine is in a steady state. eGFR calculation s are not valid for patients with acute kidney injury and for patients on dialysis. Creatinine- based estimates of kidney function may also be inaccurate in patients with reduced creatinine generation due to decreased muscle mass (e.g., malnutritio n, severe hypoalbumin emia, sarcopenia, chronic neuromuscul ar disease, amputations , severe heart failure or liver disease) and in patients with increased creatinine generation due to increased muscle mass (e.g., muscle builders, anabolic steroids) or increased dietary intake. As drug clearance is proportiona l to total GFR and not GFR indexed to body surface area (BSA), in individuals with a BSA substantial ly different than 1.73 m2, drug dosing should be based on the reported eGFR value de-indexed from BSA by multiplying by the individual' s BSA and dividing by 1.73. CKD is diagnosed based on abnormaliti es of kidney structure or function, present for >3 months, with implication s for health and disease. CKD is classified and staged based on cause, eGFR and albuminuria (quantified as urine albumin to creatinine ratio). An eGFR >60 mL/min/1.73 m2 in the absence of increased urine albumin excretion or structural abnormaliti es does not represent CKD. eGFR CKD Interpretat ion (mL/min/1.7 3 m2) stage >=90 G1 Normal 60-89 G2 Mild decrease 45-59 G3A Mild to moderate decrease 30-44 G3B Moderate to severe decrease 15-29 G4 Severe decrease <15 G5 Kidney failure Ordering Provider: HUDSON MUNGUIA RA Report Released Date/Time: Apr 03, 2024 11:13 AM Reporting Lab: [facility] [address] [address] Performing Lab: [facility] [address] [address] [facility] PANEL 5 ASPARTATE AMINOTRANSF ERASE [ENZYMATIC ACTIVITY/VO LUME] IN SERUM OR PLASMA 42 U/L 5 - 34 04/04 H Specimen Type: PLASMA Comment: Estimated Glomerular Filtration Rate (eGFR) calculated using the 2020 Chronic Kidney Disease-Epi demiology (CKD-EPI) Collaborati on creatinine equation; units of measure are mL/min/1.73 m2. Results are only valid for adults (>=18 years) whose serum creatinine is in a steady state. eGFR calculation s are not valid for patients with acute kidney injury and for patients on dialysis. Creatinine- based estimates of kidney function may also be inaccurate in patients with reduced creatinine generation due to decreased muscle mass (e.g., malnutritio n, severe hypoalbumin emia, sarcopenia, chronic neuromuscul ar disease, amputations , severe heart failure or liver disease) and in patients with increased creatinine generation due to increased muscle mass (e.g., muscle builders, anabolic steroids) or increased dietary intake. As drug clearance is proportiona l to total GFR and not GFR indexed to body surface area (BSA), in individuals with a BSA substantial ly different than 1.73 m2, drug dosing should be based on the reported eGFR value de-indexed from BSA by multiplying by the individual' s BSA and dividing by 1.73. CKD is diagnosed based on abnormaliti es of kidney structure or function, present for >3 months, with implication s for health and disease. CKD is classified and staged based on cause, eGFR and albuminuria (quantified as urine albumin to creatinine ratio). An eGFR >60 mL/min/1.73 m2 in the absence of increased urine albumin excretion or structural abnormaliti es does not represent CKD. eGFR CKD Interpretat ion (mL/min/1.7 3 m2) stage >=90 G1 Normal 60-89 G2 Mild decrease 45-59 G3A Mild to moderate decrease 30-44 G3B Moderate to severe decrease 15-29 G4 Severe decrease <15 G5 Kidney failure Ordering Provider: HUDSON MUNGUIA RA Report Released Date/Time: Apr 03, 2024 11:13 AM Reporting Lab: [facility] [address] [address] Performing Lab: [facility] [address] [address] [facility] PANEL 5 ALANINE AMINOTRANSF ERASE [ENZYMATIC ACTIVITY/VO LUME] IN SERUM OR PLASMA 21 U/L 0 - 55 04/04 Specimen Type: PLASMA Comment: Estimated Glomerular Filtration Rate (eGFR) calculated using the 2020 Chronic Kidney Disease-Epi demiology (CKD-EPI) Collaborati on creatinine equation; units of measure are mL/min/1.73 m2. Results are only valid for adults (>=18 years) whose serum creatinine is in a steady state. eGFR calculation s are not valid for patients with acute kidney injury and for patients on dialysis. Creatinine- based estimates of kidney function may also be inaccurate in patients with reduced creatinine generation due to decreased muscle mass (e.g., malnutritio n, severe hypoalbumin emia, sarcopenia, chronic neuromuscul ar disease, amputations , severe heart failure or liver disease) and in patients with increased creatinine generation due to increased muscle mass (e.g., muscle builders, anabolic steroids) or increased dietary intake. As drug clearance is proportiona l to total GFR and not GFR indexed to body surface area (BSA), in individuals with a BSA substantial ly different than 1.73 m2, drug dosing should be based on the reported eGFR value de-indexed from BSA by multiplying by the individual' s BSA and dividing by 1.73. CKD is diagnosed based on abnormaliti es of kidney structure or function, present for >3 months, with implication s for health and disease. CKD is classified and staged based on cause, eGFR and albuminuria (quantified as urine albumin to creatinine ratio). An eGFR >60 mL/min/1.73 m2 in the absence of increased urine albumin excretion or structural abnormaliti es does not represent CKD. eGFR CKD Interpretat ion (mL/min/1.7 3 m2) stage >=90 G1 Normal 60-89 G2 Mild decrease 45-59 G3A Mild to moderate decrease 30-44 G3B Moderate to severe decrease 15-29 G4 Severe decrease <15 G5 Kidney failure Ordering Provider: HUDSON MUNGUIA RA Report Released Date/Time: Apr 03, 2024 11:13 AM Reporting Lab: [facility] [address] [address] Performing Lab: [facility] [address] [address] [facility] PANEL 5 ANION GAP 3 IN SERUM OR PLASMA 9 meq/L 3 - 19 04/04 Specimen Type: PLASMA Comment: Estimated Glomerular Filtration Rate (eGFR) calculated using the 2020 Chronic Kidney Disease-Epi demiology (CKD-EPI) Collaborati on creatinine equation; units of measure are mL/min/1.73 m2. Results are only valid for adults (>=18 years) whose serum creatinine is in a steady state. eGFR calculation s are not valid for patients with acute kidney injury and for patients on dialysis. Creatinine- based estimates of kidney function may also be inaccurate in patients with reduced creatinine generation due to decreased muscle mass (e.g., malnutritio n, severe hypoalbumin emia, sarcopenia, chronic neuromuscul ar disease, amputations , severe heart failure or liver disease) and in patients with increased creatinine generation due to increased muscle mass (e.g., muscle builders, anabolic steroids) or increased dietary intake. As drug clearance is proportiona l to total GFR and not GFR indexed to body surface area (BSA), in individuals with a BSA substantial ly different than 1.73 m2, drug dosing should be based on the reported eGFR value de-indexed from BSA by multiplying by the individual' s BSA and dividing by 1.73. CKD is diagnosed based on abnormaliti es of kidney structure or function, present for >3 months, with implication s for health and disease. CKD is classified and staged based on cause, eGFR and albuminuria (quantified as urine albumin to creatinine ratio). An eGFR >60 mL/min/1.73 m2 in the absence of increased urine albumin excretion or structural abnormaliti es does not represent CKD. eGFR CKD Interpretat ion (mL/min/1.7 3 m2) stage >=90 G1 Normal 60-89 G2 Mild decrease 45-59 G3A Mild to moderate decrease 30-44 G3B Moderate to severe decrease 15-29 G4 Severe decrease <15 G5 Kidney failure Ordering Provider: HUDSON MUNGUIA RA Report Released Date/Time: Apr 03, 2024 11:13 AM Reporting Lab: [facility] [address] [address] Performing Lab: [facility] [address] [address] [facility] PANEL 5 ALKALINE PHOSPHATASE [ENZYMATIC ACTIVITY/VO LUME] IN SERUM OR PLASMA 60 U/L 40 - 150 04/04 Specimen Type: PLASMA Comment: Estimated Glomerular Filtration Rate (eGFR) calculated using the 2020 Chronic Kidney Disease-Epi demiology (CKD-EPI) Collaborati on creatinine equation; units of measure are mL/min/1.73 m2. Results are only valid for adults (>=18 years) whose serum creatinine is in a steady state. eGFR calculation s are not valid for patients with acute kidney injury and for patients on dialysis. Creatinine- based estimates of kidney function may also be inaccurate in patients with reduced creatinine generation due to decreased muscle mass (e.g., malnutritio n, severe hypoalbumin emia, sarcopenia, chronic neuromuscul ar disease, amputations , severe heart failure or liver disease) and in patients with increased creatinine generation due to increased muscle mass (e.g., muscle builders, anabolic steroids) or increased dietary intake. As drug clearance is proportiona l to total GFR and not GFR indexed to body surface area (BSA), in individuals with a BSA substantial ly different than 1.73 m2, drug dosing should be based on the reported eGFR value de-indexed from BSA by multiplying by the individual' s BSA and dividing by 1.73. CKD is diagnosed based on abnormaliti es of kidney structure or function, present for >3 months, with implication s for health and disease. CKD is classified and staged based on cause, eGFR and albuminuria (quantified as urine albumin to creatinine ratio). An eGFR >60 mL/min/1.73 m2 in the absence of increased urine albumin excretion or structural abnormaliti es does not represent CKD. eGFR CKD Interpretat ion (mL/min/1.7 3 m2) stage >=90 G1 Normal 60-89 G2 Mild decrease 45-59 G3A Mild to moderate decrease 30-44 G3B Moderate to severe decrease 15-29 G4 Severe decrease <15 G5 Kidney failure Ordering Provider: HUDSON MUNGUIA RA Report Released Date/Time: Apr 03, 2024 11:13 AM Reporting Lab: [facility] [address] [address] Performing Lab: [facility] [address] [address] [facility] PANEL 5 GLOMERULAR FILTRATION RATE/1.73 SQ M.PREDICTED [VOLUME RATE/AREA] IN SERUM, PLASMA OR BLOOD BY CREATININE- BASED FORMULA (CKD-EPI 2020) >90 04/04 Specimen Type: PLASMA Comment: Estimated Glomerular Filtration Rate (eGFR) calculated using the 2020 Chronic Kidney Disease-Epi demiology (CKD-EPI) Collaborati on creatinine equation; units of measure are mL/min/1.73 m2. Results are only valid for adults (>=18 years) whose serum creatinine is in a steady state. eGFR calculation s are not valid for patients with acute kidney injury and for patients on dialysis. Creatinine- based estimates of kidney function may also be inaccurate in patients with reduced creatinine generation due to decreased muscle mass (e.g., malnutritio n, severe hypoalbumin emia, sarcopenia, chronic neuromuscul ar disease, amputations , severe heart failure or liver disease) and in patients with increased creatinine generation due to increased muscle mass (e.g., muscle builders, anabolic steroids) or increased dietary intake. As drug clearance is proportiona l to total GFR and not GFR indexed to body surface area (BSA), in individuals with a BSA substantial ly different than 1.73 m2, drug dosing should be based on the reported eGFR value de-indexed from BSA by multiplying by the individual' s BSA and dividing by 1.73. CKD is diagnosed based on abnormaliti es of kidney structure or function, present for >3 months, with implication s for health and disease. CKD is classified and staged based on cause, eGFR and albuminuria (quantified as urine albumin to creatinine ratio). An eGFR >60 mL/min/1.73 m2 in the absence of increased urine albumin excretion or structural abnormaliti es does not represent CKD. eGFR CKD Interpretat ion (mL/min/1.7 3 m2) stage >=90 G1 Normal 60-89 G2 Mild decrease 45-59 G3A Mild to moderate decrease 30-44 G3B Moderate to severe decrease 15-29 G4 Severe decrease <15 G5 Kidney failure Ordering Provider: HUDSON MUNGUIA RA Report Released Date/Time: Apr 03, 2024 11:13 AM Reporting Lab: [facility] [address] [address] Performing Lab: [facility] [address] [address] [facility] LIPID PROFILE CHOLESTEROL [MASS/VOLUM E] IN SERUM OR PLASMA 191 mg/dL 0 - 199 04/04 Specimen Type: PLASMA Comment: Estimated Glomerular Filtration Rate (eGFR) calculated using the 2020 Chronic Kidney Disease-Epi demiology (CKD-EPI) Collaborati on creatinine equation; units of measure are mL/min/1.73 m2. Results are only valid for adults (>=18 years) whose serum creatinine is in a steady state. eGFR calculation s are not valid for patients with acute kidney injury and for patients on dialysis. Creatinine- based estimates of kidney function may also be inaccurate in patients with reduced creatinine generation due to decreased muscle mass (e.g., malnutritio n, severe hypoalbumin emia, sarcopenia, chronic neuromuscul ar disease, amputations , severe heart failure or liver disease) and in patients with increased creatinine generation due to increased muscle mass (e.g., muscle builders, anabolic steroids) or increased dietary intake. As drug clearance is proportiona l to total GFR and not GFR indexed to body surface area (BSA), in individuals with a BSA substantial ly different than 1.73 m2, drug dosing should be based on the reported eGFR value de-indexed from BSA by multiplying by the individual' s BSA and dividing by 1.73. CKD is diagnosed based on abnormaliti es of kidney structure or function, present for >3 months, with implication s for health and disease. CKD is classified and staged based on cause, eGFR and albuminuria (quantified as urine albumin to creatinine ratio). An eGFR >60 mL/min/1.73 m2 in the absence of increased urine albumin excretion or structural abnormaliti es does not represent CKD. eGFR CKD Interpretat ion (mL/min/1.7 3 m2) stage >=90 G1 Normal 60-89 G2 Mild decrease 45-59 G3A Mild to moderate decrease 30-44 G3B Moderate to severe decrease 15-29 G4 Severe decrease <15 G5 Kidney failure Ordering Provider: HUDSON MUNGUIA RA Report Released Date/Time: Apr 03, 2024 11:13 AM Reporting Lab: [facility] [address] [address] Performing Lab: [facility] [address] [address] [facility] LIPID PROFILE TRIGLYCERID E [MASS/VOLUM E] IN SERUM OR PLASMA 60 mg/dL 0 - 149 04/04 Specimen Type: PLASMA Comment: Estimated Glomerular Filtration Rate (eGFR) calculated using the 2020 Chronic Kidney Disease-Epi demiology (CKD-EPI) Collaborati on creatinine equation; units of measure are mL/min/1.73 m2. Results are only valid for adults (>=18 years) whose serum creatinine is in a steady state. eGFR calculation s are not valid for patients with acute kidney injury and for patients on dialysis. Creatinine- based estimates of kidney function may also be inaccurate in patients with reduced creatinine generation due to decreased muscle mass (e.g., malnutritio n, severe hypoalbumin emia, sarcopenia, chronic neuromuscul ar disease, amputations , severe heart failure or liver disease) and in patients with increased creatinine generation due to increased muscle mass (e.g., muscle builders, anabolic steroids) or increased dietary intake. As drug clearance is proportiona l to total GFR and not GFR indexed to body surface area (BSA), in individuals with a BSA substantial ly different than 1.73 m2, drug dosing should be based on the reported eGFR value de-indexed from BSA by multiplying by the individual' s BSA and dividing by 1.73. CKD is diagnosed based on abnormaliti es of kidney structure or function, present for >3 months, with implication s for health and disease. CKD is classified and staged based on cause, eGFR and albuminuria (quantified as urine albumin to creatinine ratio). An eGFR >60 mL/min/1.73 m2 in the absence of increased urine albumin excretion or structural abnormaliti es does not represent CKD. eGFR CKD Interpretat ion (mL/min/1.7 3 m2) stage >=90 G1 Normal 60-89 G2 Mild decrease 45-59 G3A Mild to moderate decrease 30-44 G3B Moderate to severe decrease 15-29 G4 Severe decrease <15 G5 Kidney failure Ordering Provider: HUDSON MUNGUIA RA Report Released Date/Time: Apr 03, 2024 11:13 AM Reporting Lab: [facility] [address] [address] Performing Lab: [facility] [address] [address] [facility] LIPID PROFILE CHOLESTEROL IN HDL [MASS/VOLUM E] IN SERUM OR PLASMA 53 mg/dL 40 - 69 04/04 Specimen Type: PLASMA Comment: Estimated Glomerular Filtration Rate (eGFR) calculated using the 2020 Chronic Kidney Disease-Epi demiology (CKD-EPI) Collaborati on creatinine equation; units of measure are mL/min/1.73 m2. Results are only valid for adults (>=18 years) whose serum creatinine is in a steady state. eGFR calculation s are not valid for patients with acute kidney injury and for patients on dialysis. Creatinine- based estimates of kidney function may also be inaccurate in patients with reduced creatinine generation due to decreased muscle mass (e.g., malnutritio n, severe hypoalbumin emia, sarcopenia, chronic neuromuscul ar disease, amputations , severe heart failure or liver disease) and in patients with increased creatinine generation due to increased muscle mass (e.g., muscle builders, anabolic steroids) or increased dietary intake. As drug clearance is proportiona l to total GFR and not GFR indexed to body surface area (BSA), in individuals with a BSA substantial ly different than 1.73 m2, drug dosing should be based on the reported eGFR value de-indexed from BSA by multiplying by the individual' s BSA and dividing by 1.73. CKD is diagnosed based on abnormaliti es of kidney structure or function, present for >3 months, with implication s for health and disease. CKD is classified and staged based on cause, eGFR and albuminuria (quantified as urine albumin to creatinine ratio). An eGFR >60 mL/min/1.73 m2 in the absence of increased urine albumin excretion or structural abnormaliti es does not represent CKD. eGFR CKD Interpretat ion (mL/min/1.7 3 m2) stage >=90 G1 Normal 60-89 G2 Mild decrease 45-59 G3A Mild to moderate decrease 30-44 G3B Moderate to severe decrease 15-29 G4 Severe decrease <15 G5 Kidney failure Ordering Provider: HUDSON MUNGUIA RA Report Released Date/Time: Apr 03, 2024 11:13 AM Reporting Lab: [facility] [address] [facility] [address] Performing Lab: [facility] [address] [facility] [address] [facility] LIPID PROFILE CHOLESTEROL IN LDL [MASS/VOLUM E] IN SERUM OR PLASMA BY DIRECT ASSAY 144 mg/dL 0 - 100 04/04 H Specimen Type: PLASMA Comment: Estimated Glomerular Filtration Rate (eGFR) calculated using the 2020 Chronic Kidney Disease-Epi demiology (CKD-EPI) Collaborati on creatinine equation; units of measure are mL/min/1.73 m2. Results are only valid for adults (>=18 years) whose serum creatinine is in a steady state. eGFR calculation s are not valid for patients with acute kidney injury and for patients on dialysis. Creatinine- based estimates of kidney function may also be inaccurate in patients with reduced creatinine generation due to decreased muscle mass (e.g., malnutritio n, severe hypoalbumin emia, sarcopenia, chronic neuromuscul ar disease, amputations , severe heart failure or liver disease) and in patients with increased creatinine generation due to increased muscle mass (e.g., muscle builders, anabolic steroids) or increased dietary intake. As drug clearance is proportiona l to total GFR and not GFR indexed to body surface area (BSA), in individuals with a BSA substantial ly different than 1.73 m2, drug dosing should be based on the reported eGFR value de-indexed from BSA by multiplying by the individual' s BSA and dividing by 1.73. CKD is diagnosed based on abnormaliti es of kidney structure or function, present for >3 months, with implication s for health and disease. CKD is classified and staged based on cause, eGFR and albuminuria (quantified as urine albumin to creatinine ratio). An eGFR >60 mL/min/1.73 m2 in the absence of increased urine albumin excretion or structural abnormaliti es does not represent CKD. eGFR CKD Interpretat ion (mL/min/1.7 3 m2) stage >=90 G1 Normal 60-89 G2 Mild decrease 45-59 G3A Mild to moderate decrease 30-44 G3B Moderate to severe decrease 15-29 G4 Severe decrease <15 G5 Kidney failure Ordering Provider: HUDSON MUNGUIA RA Report Released Date/Time: Apr 03, 2024 11:13 AM Reporting Lab: [address] [address] Performing Lab: [address] [address] [facility] GLYCOHEMO GLOBIN HEMOGLOBIN A1C/HEMOGLO BIN.TOTAL IN BLOOD BY HPLC 5.4 4.4 - 6.4 04/04 Specimen Type: BLOOD Comment: [place] guidelines for A1c interpretat ion: Glycemic control targets are based on Shared Decision Making between clinicians and patients. Criteria used to establish an A1c target recommendat ion can be found at https://www .[place].gov/ignacio lityandpati entsafety/ and include the use of result accuracy and precision(C V) of the A1c tests clinicians utilize at their own sites of practice. Values obtained from A1C measurement s can vary. For typical A1C assays, a reported value of 7.0 could actually be between 6.72 and 7.28 if measured by a reference method. A reported value of 9.0 could actually be between 8.73 and 9.27. Ref: https://ngs p.org/CAPda ta.asp. The in-house [employer] D-100 analyzer has a historical CV <= 2%. Contact the laboratory for further performance characteris tics of this assay. Ordering Provider: HUDSON MUNGUIA RA Report Released Date/Time: Apr 03, 2024 11:13 AM Reporting Lab: [address] [address] Performing Lab: [address] [address] [facility] THYROID PROFILE THYROTROPIN [UNITS/VOLU ME] IN SERUM OR PLASMA 0.6894 m[IU]/ mL 0.3500 - 4.9400 04/04 Specimen Type: PLASMA Comment: Estimated Glomerular Filtration Rate (eGFR) calculated using the 2020 Chronic Kidney Disease-Epi demiology (CKD-EPI) Collaborati on creatinine equation; units of measure are mL/min/1.73 m2. Results are only valid for adults (>=18 years) whose serum creatinine is in a steady state. eGFR calculation s are not valid for patients with acute kidney injury and for patients on dialysis. Creatinine- based estimates of kidney function may also be inaccurate in patients with reduced creatinine generation due to decreased muscle mass (e.g., malnutritio n, severe hypoalbumin emia, sarcopenia, chronic neuromuscul ar disease, amputations , severe heart failure or liver disease) and in patients with increased creatinine generation due to increased muscle mass (e.g., muscle builders, anabolic steroids) or increased dietary intake. As drug clearance is proportiona l to total GFR and not GFR indexed to body surface area (BSA), in individuals with a BSA substantial ly different than 1.73 m2, drug dosing should be based on the reported eGFR value de-indexed from BSA by multiplying by the individual' s BSA and dividing by 1.73. CKD is diagnosed based on abnormaliti es of kidney structure or function, present for >3 months, with implication s for health and disease. CKD is classified and staged based on cause, eGFR and albuminuria (quantified as urine albumin to creatinine ratio). An eGFR >60 mL/min/1.73 m2 in the absence of increased urine albumin excretion or structural abnormaliti es does not represent CKD. eGFR CKD Interpretat ion (mL/min/1.7 3 m2) stage >=90 G1 Normal 60-89 G2 Mild decrease 45-59 G3A Mild to moderate decrease 30-44 G3B Moderate to severe decrease 15-29 G4 Severe decrease <15 G5 Kidney failure Ordering Provider: HUDSON MUNGUIA RA Report Released Date/Time: Apr 03, 2024 11:13 AM Reporting Lab: [facility] [address] [address] Performing Lab: [facility] [address] [address] [facility] THYROID PROFILE FREE T4 1.06 ng/mL 0.70 - 1.48 04/04 Specimen Type: PLASMA Comment: Estimated Glomerular Filtration Rate (eGFR) calculated using the 2020 Chronic Kidney Disease-Epi demiology (CKD-EPI) Collaborati on creatinine equation; units of measure are mL/min/1.73 m2. Results are only valid for adults (>=18 years) whose serum creatinine is in a steady state. eGFR calculation s are not valid for patients with acute kidney injury and for patients on dialysis. Creatinine- based estimates of kidney function may also be inaccurate in patients with reduced creatinine generation due to decreased muscle mass (e.g., malnutritio n, severe hypoalbumin emia, sarcopenia, chronic neuromuscul ar disease, amputations , severe heart failure or liver disease) and in patients with increased creatinine generation due to increased muscle mass (e.g., muscle builders, anabolic steroids) or increased dietary intake. As drug clearance is proportiona l to total GFR and not GFR indexed to body surface area (BSA), in individuals with a BSA substantial ly different than 1.73 m2, drug dosing should be based on the reported eGFR value de-indexed from BSA by multiplying by the individual' s BSA and dividing by 1.73. CKD is diagnosed based on abnormaliti es of kidney structure or function, present for >3 months, with implication s for health and disease. CKD is classified and staged based on cause, eGFR and albuminuria (quantified as urine albumin to creatinine ratio). An eGFR >60 mL/min/1.73 m2 in the absence of increased urine albumin excretion or structural abnormaliti es does not represent CKD. eGFR CKD Interpretat ion (mL/min/1.7 3 m2) stage >=90 G1 Normal 60-89 G2 Mild decrease 45-59 G3A Mild to moderate decrease 30-44 G3B Moderate to severe decrease 15-29 G4 Severe decrease <15 G5 Kidney failure Ordering Provider: HUDSON MUNGUIA RA Report Released Date/Time: Apr 03, 2024 11:13 AM Reporting Lab: [facility] [address] [address] Performing Lab: [facility] [address] [address] [facility] CRP (for acute inflammat ion) C REACTIVE PROTEIN [MASS/VOLUM E] IN SERUM OR PLASMA 2.1 mg/L 0.0 - 5.0 04/04 Specimen Type: PLASMA Comment: Estimated Glomerular Filtration Rate (eGFR) calculated using the 2020 Chronic Kidney Disease-Epi demiology (CKD-EPI) Collaborati on creatinine equation; units of measure are mL/min/1.73 m2. Results are only valid for adults (>=18 years) whose serum creatinine is in a steady state. eGFR calculation s are not valid for patients with acute kidney injury and for patients on dialysis. Creatinine- based estimates of kidney function may also be inaccurate in patients with reduced creatinine generation due to decreased muscle mass (e.g., malnutritio n, severe hypoalbumin emia, sarcopenia, chronic neuromuscul ar disease, amputations , severe heart failure or liver disease) and in patients with increased creatinine generation due to increased muscle mass (e.g., muscle builders, anabolic steroids) or increased dietary intake. As drug clearance is proportiona l to total GFR and not GFR indexed to body surface area (BSA), in individuals with a BSA substantial ly different than 1.73 m2, drug dosing should be based on the reported eGFR value de-indexed from BSA by multiplying by the individual' s BSA and dividing by 1.73. CKD is diagnosed based on abnormaliti es of kidney structure or function, present for >3 months, with implication s for health and disease. CKD is classified and staged based on cause, eGFR and albuminuria (quantified as urine albumin to creatinine ratio). An eGFR >60 mL/min/1.73 m2 in the absence of increased urine albumin excretion or structural abnormaliti es does not represent CKD. eGFR CKD Interpretat ion (mL/min/1.7 3 m2) stage >=90 G1 Normal 60-89 G2 Mild decrease 45-59 G3A Mild to moderate decrease 30-44 G3B Moderate to severe decrease 15-29 G4 Severe decrease <15 G5 Kidney failure Ordering Provider: HUDSON MUNGUIA RA Report Released Date/Time: Apr 03, 2024 11:13 AM Reporting Lab: [facility] [address] [address] Performing Lab: [facility] [address] SED RATE (ISED) ERYTHROCYTE SEDIMENTATI ON RATE BY PHOTOMETRIC METHOD 2 mm/h 0 - 20 04/04 Specimen Type: BLOOD No comment entered. Ordering Provider: HUDSON MUNGUIA RA Report Released Date/Time: Apr 04, 2024 10:26 AM Reporting Lab: [place] [phone] Performing Lab: [address] AUTOMATED DIFF LYMPHOCYTES /100 LEUKOCYTES IN BLOOD BY AUTOMATED COUNT 24.0 24.0 - 44.0 04/04 Specimen Type: BLOOD No comment entered. Ordering Provider: HUDSON MUNGUIA RA Report Released Date/Time: Apr 04, 2024 10:26 AM Reporting Lab: [place] [phone] Performing Lab: [address] AUTOMATED DIFF MONOCYTES/1 00 LEUKOCYTES IN BLOOD BY AUTOMATED COUNT 13.6 0.1 - 6.0 04/04 H Specimen Type: BLOOD No comment entered. Ordering Provider: HUDSON MUNGUIA RA Report Released Date/Time: Apr 04, 2024 10:26 AM Reporting Lab: [place] [phone] Performing Lab: [address] AUTOMATED DIFF GRANULOCYTE S/100 LEUKOCYTES IN BLOOD BY AUTOMATED COUNT 58.4 42.0 - 75.0 04/04 Specimen Type: BLOOD No comment entered. Ordering Provider: HUDSON MUNGUIA RA Report Released Date/Time: Apr 04, 2024 10:26 AM Reporting Lab: [place] [id number] Performing Lab: [address] AUTOMATED DIFF LYMPHOCYTES [#/VOLUME] IN BLOOD BY AUTOMATED COUNT 1.47 10*3/u L 1.20 - 3.40 04/04 Specimen Type: BLOOD No comment entered. Ordering Provider: HUDSON MUNGUIA RA Report Released Date/Time: Apr 04, 2024 10:26 AM Reporting Lab: [address] [address] Performing Lab: [address] [phone] [place] [address] AUTOMATED DIFF MONOCYTES [#/VOLUME] IN BLOOD BY AUTOMATED COUNT 0.83 10*3/u L 0.00 - 0.60 04/04 H Specimen Type: BLOOD No comment entered. Ordering Provider: HUDSON MUNGUIA RA Report Released Date/Time: Apr 04, 2024 10:26 AM Reporting Lab: [address] [address] Performing Lab: [place] [phone] AUTOMATED DIFF GRANULOCYTE S [#/VOLUME] IN BLOOD BY AUTOMATED COUNT 3.58 10*3/u L 1.40 - 6.50 04/04 Specimen Type: BLOOD No comment entered. Ordering Provider: HUDSON MUNGUIA RA Report Released Date/Time: Apr 04, 2024 10:26 AM Reporting Lab: [address] [address] Performing Lab: [place] [phone] [place] [address] AUTOMATED DIFF BASOPHILS/1 00 LEUKOCYTES IN BLOOD BY AUTOMATED COUNT 0.7 0.0 - 3.0 04/04 Specimen Type: BLOOD No comment entered. Ordering Provider: HUDSON MUNGUIA RA Report Released Date/Time: Apr 04, 2024 10:26 AM Reporting Lab: [address] [address] Performing Lab: [address] [address] [facility] AUTOMATED DIFF BASOPHILS [#/VOLUME] IN BLOOD BY AUTOMATED COUNT 0.04 10*3/u L 0.00 - 0.20 04/04 Specimen Type: BLOOD No comment entered. Ordering Provider: HUDSON MUNGUIA RA Report Released Date/Time: Apr 04, 2024 10:26 AM Reporting Lab: [address] [place] [address] Performing Lab: [address] [address] [facility] AUTOMATED DIFF EOSINOPHILS /100 LEUKOCYTES IN BLOOD BY AUTOMATED COUNT 3.1 0.0 - 10.0 04/04 Specimen Type: BLOOD No comment entered. Ordering Provider: HUDSON MUNGUIA RA Report Released Date/Time: Apr 04, 2024 10:26 AM Reporting Lab: [address] [address] Performing Lab: [address] [address] [facility] AUTOMATED DIFF EOSINOPHILS [#/VOLUME] IN BLOOD BY AUTOMATED COUNT 0.19 10*3/u L 0.00 - 0.70 04/04 Specimen Type: BLOOD No comment entered. Ordering Provider: HUDSON MUNGUIA RA Report Released Date/Time: Apr 04, 2024 10:26 AM Reporting Lab: [address] [address] Performing Lab: [address] [address] [facility] AUTOMATED DIFF IMMATURE GRANULOCYTE S/100 LEUKOCYTES IN BLOOD 0.2 0.0 - 0.5 04/04 Specimen Type: BLOOD No comment entered. Ordering Provider: HUDSON MUNGUIA RA Report Released Date/Time: Apr 04, 2024 10:26 AM Reporting Lab: [address] [address] Performing Lab: [address] [address] [facility] AUTOMATED DIFF IMMATURE GRANULOCYTE S [#/VOLUME] IN BLOOD 0.01 10*3/u L 0.00 - 0.06 04/04 Specimen Type: BLOOD No comment entered. Ordering Provider: HUDSON MUNGUIA RA Report Released Date/Time: Apr 04, 2024 10:26 AM Reporting Lab: [address] [address] Performing Lab: [address] [address] [facility] CBC/PLT LEUKOCYTES [#/VOLUME] IN BLOOD BY AUTOMATED COUNT 6.1 10*3/u L 5.0 - 10.0 04/04 Specimen Type: BLOOD No comment entered. Ordering Provider: HUDSON MUNGUIA RA Report Released Date/Time: Apr 04, 2024 10:26 AM Reporting Lab: [place] [phone] Performing Lab: [place] [phone] CBC/PLT ERYTHROCYTE S [#/VOLUME] IN BLOOD BY AUTOMATED COUNT 4.71 10*6/u L 4.6 - 6.2 04/04 Specimen Type: BLOOD No comment entered. Ordering Provider: HUDSON MUNGUIA RA Report Released Date/Time: Apr 04, 2024 10:26 AM Reporting Lab: [place] [phone] Performing Lab: [address] CBC/PLT HEMOGLOBIN [MASS/VOLUM E] IN BLOOD 15.0 g/dL 14.0 - 18.0 04/04 Specimen Type: BLOOD No comment entered. Ordering Provider: HUDSON MUNGUIA RA Report Released Date/Time: Apr 04, 2024 10:26 AM Reporting Lab: [place] [phone] Performing Lab: [address] CBC/PLT HEMATOCRIT [VOLUME FRACTION] OF BLOOD BY AUTOMATED COUNT 43.5 42.0 - 52.0 04/04 Specimen Type: BLOOD No comment entered. Ordering Provider: HUDSON MUNGUIA RA Report Released Date/Time: Apr 04, 2024 10:26 AM Reporting Lab: [place] [phone] Performing Lab: [address] CBC/PLT MCV [ENTITIC VOLUME] BY AUTOMATED COUNT 92.4 fL 80.0 - 94.0 04/04 Specimen Type: BLOOD No comment entered. Ordering Provider: HUDSON MUNGUIA RA Report Released Date/Time: Apr 04, 2024 10:26 AM Reporting Lab: [address] [address] Performing Lab: [phone] [place] [address] CBC/PLT MCH [ENTITIC MASS] BY AUTOMATED COUNT 31.8 pg 27.0 - 31.0 04/04 H Specimen Type: BLOOD No comment entered. Ordering Provider: HUDSON MUNGUIA RA Report Released Date/Time: Apr 04, 2024 10:26 AM Reporting Lab: [address] [address] Performing Lab: [phone] [place] [address] CBC/PLT MCHC [MASS/VOLUM E] BY AUTOMATED COUNT 34.5 g/dL 32.0 - 36.0 04/04 Specimen Type: BLOOD No comment entered. Ordering Provider: HUDSON MUNGUIA RA Report Released Date/Time: Apr 04, 2024 10:26 AM Reporting Lab: [address] [address] Performing Lab: [address] [phone] [place] [address] CBC/PLT PLATELETS [#/VOLUME] IN BLOOD 199 10*3/u L 150 - 450 04/04 Specimen Type: BLOOD No comment entered. Ordering Provider: HUDSON MUNGUIA RA Report Released Date/Time: Apr 04, 2024 10:26 AM Reporting Lab: [address] [address] Performing Lab: [address] [address] [facility] CBC/PLT PLATELET MEAN VOLUME [ENTITIC VOLUME] IN BLOOD 10.2 fL 9.0 - 13.1 04/04 Specimen Type: BLOOD No comment entered. Ordering Provider: HUDSON MUNGUIA RA Report Released Date/Time: Apr 04, 2024 10:26 AM Reporting Lab: [address] [address] Performing Lab: [address] [address] [facility] CBC/PLT ERYTHROCYTE DISTRIBUTIO N WIDTH [ENTITIC VOLUME] BY AUTOMATED COUNT 12.4 11.0 - 16.0 04/04 Specimen Type: BLOOD No comment entered. Ordering Provider: HUDSON MUNGUIA RA Report Released Date/Time: Apr 04, 2024 10:26 AM Reporting Lab: [place] [phone] Performing Lab: [address] [phone] [place] [address] CBC/PLT NUCLEATED ERYTHROCYTE S/100 ERYTHROCYTE S IN BLOOD 0.0 0.0 - 0.0 04/04 Specimen Type: BLOOD No comment entered. Ordering Provider: HUDSON MUNGUIA RA Report Released Date/Time: Apr 04, 2024 10:26 AM Reporting Lab: [address] [address] Performing Lab: [place] [phone] [facility] RHEUMATOI D FACTOR RHEUMATOID FACTOR [UNITS/VOLU ME] IN SERUM OR PLASMA <8 NEGATI VE[IU] /mL <8 NEGATIVE - 8 03/27 Specimen Type: SERUM No comment entered. Ordering Provider: ECTOR TORRES Report Released Date/Time: Mar 27, 2024 11:07 AM Reporting Lab: [place] [phone] Performing Lab: [place] [phone] [facility] Vital Signs Combined list of inpatient and outpatient Vital Signs from Department of Defense and Veterans Affairs, ranging from 12 months to all on record, depending upon the facility. Vital Sign Value Date Comments Source SYSTOLIC BLOOD PRESSURE 130 07/02/2024 14:51:00 [facility] DIASTOLIC BLOOD PRESSURE 80 07/02/2024 14:51:00 [facility] PULSE OXIMETRY 98 07/02/2024 14:51:00 [facility] WE[facility] 165.4 07/02/2024 14:51:00 [place] [facility] BMI 24 kg/m2 07/02/2024 14:51:00 [place] [facility] PAIN 0 07/02/2024 14:51:00 [place] [facility] TEMPERATURE 98.2 07/02/2024 14:51:00 [place] NGTON [facility] PULSE 74 07/02/2024 14:51:00 [place] [facility] SYSTOLIC BLOOD PRESSURE 114 05/04/2024 09:07:05 [place] [facility] DIASTOLIC BLOOD PRESSURE 68 05/04/2024 09:07:05 [place] [facility] PULSE 65 05/04/2024 09:07:05 [place] [facility] SYSTOLIC BLOOD PRESSURE 181 04/04/2024 09:43:09 [place] [facility] DIASTOLIC BLOOD PRESSURE 95 04/04/2024 09:43:09 [place] [facility] PULSE OXIMETRY 97 04/04/2024 09:43:09 [place] [facility] WEIGHT 164.8 04/04/2024 09:43:09 [place] [facility] BMI 24 kg/m2 04/04/2024 09:43:09 [place] [facility] PAIN 0 04/04/2024 09:43:09 [place] [facility] HEIGHT 69 04/04/2024 09:43:09 [place] [facility] TEMPERATURE 97.2 04/04/2024 09:43:09 PAUL[place] NGTON [facility] PULSE 67 04/04/2024 09:43:09 [place] [facility] SYSTOLIC BLOOD PRESSURE 184 03/27/2024 10:38:37 [place] [facility] DIASTOLIC BLOOD PRESSURE 105 03/27/2024 10:38:37 [place] [facility] PULSE OXIMETRY 97 03/27/2024 10:38:37 [place] [facility] WEIGHT 162 03/27/2024 10:38:37 [place] [facility] BMI 24 kg/m2 03/27/2024 10:38:37 [place] [facility] HEIGHT 69 03/27/2024 10:38:37 МАРИНА KLINE [facility] TEMPERATURE 98.2 03/27/2024 10:38:37 [place] JACK[place] [facility] PULSE 65 03/27/2024 10:38:37 МАРИНА KLINE [facility] RESPIRATION 20 03/27/2024 10:38:37 PAULINE JACKSON [facility] SYSTOLIC BLOOD PRESSURE 166 02/21/2024 09:27:36 MUSA [facility] DIASTOLIC BLOOD PRESSURE 104 02/21/2024 09:27:36 [facility] PULSE OXIMETRY 98 02/21/2024 09:27:36 [facility] WEIGHT 160 02/21/2024 09:27:36 МАРИНА KLINE [facility] BMI 24 kg/m2 02/21/2024 09:27:36 МАРИНА KAYLEEN [facility] PAIN 0 02/21/2024 09:27:36 МАРИНА KLINE [facility] TEMPERATURE 98.3 02/21/2024 09:27:36 PAULINE JACKSON [facility] PULSE 63 02/21/2024 09:27:36 МАРИНА KAYLEEN [facility] Encounters Combined list of: 1) Encounters from Department of Veterans Affairs facilities going backup to the last 18 months, not all [place] inpatient encounters are included; 2) Encounters from the Department of Defense facilities going backup to 280 months. Location Location Details Encounter Type Encounter Number Reason For Visit Attending Provider ADM Date DC Date Status Disposition Source [facility] HEARING AID REPAIR/MOD IFYING [id number] Diagnos is: ICD-10- CM Z46.1 Encount er for fitting and adjustm ent of hearing aid SARAVANAN CABALLERO [facility] [place] [facility] En[facility] [id number] 03[place] [facility] EST MOD 30-39 MIN [id number] Diagnos is: ICD-10- CM R97.20 Elevate d prostat e specifi c antigen [PSA] MARVA MUNGUIA 03/25 [place] [facility] Outpatient Encounter [id number] 03/31 [place] [facility] Outpatient Encounter [id number] 03/31 [place] [facility] Outpatient Encounter [id number] 04/08 [place] [facility] Outpatient Encounter [id number] ME OLESYA VALENCIAA Ninfa 04/18 [place] [facility] EMERGENCY DEPT VISIT LOW MDM [id number] Diagnos is: ICD-10- CM M25.562 Pain in left knee PAYAL RAM 04/18 [place] Outpatient Encounter [id number] 06/20 [place] OFFICE O/P EST SF 10 MIN [id number] Diagnos is: ICD-10- CM H40.013 Open angle with borderl ine finding s, low risk, bilater al GUOELY DIAZ L 07/27 [place] [facility] HEARING AID REPAIR/MOD IFYING [id number] Diagnos is: ICD-10- CM Z46.1 Encount er for fitting and adjustm ent of hearing aid SARAVANAN CABALLERO 07/27 [place] HC PRO PHONE CALL 11-20 MIN [id number] Diagnos is: ICD-10- CM 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 ing GABRIELA,DE NISE M 07/28 [place] [facility] OFFICE O/P EST MOD 30 MIN [id number] Diagnos is: ICD-10- CM 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, left eye, stable MANAS HUNT L 09/01 [place] [facility] OFFICE O/P EST MOD 30 MIN [id number] Diagnos is: ICD-10- CM 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, left eye, stable SHIRLEY ESCAMILLA N 09/29 [place] [facility] Outpatient Encounter [id number] 10/11 [place] [facility] OFFICE O/P EST SF 10 MIN [id number] Diagnos is: ICD-10- CM 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, left eye, stable SHIRLEY ESCAMILLA N 12/25 [place] [facility] EMERGENCY DEPT VISIT LOW MDM [id number] Diagnos is: ICD-10- CM S62.342 A Nondisp fx of base of third bone, right hand, inYaz Johnson 02/09 [place] OFFICE O/P NEW LOW 30 MIN [id number] Diagnos is: ICD-10- CM M25.531 Pain in right wrist BUFFY LABOY V 02/20 [place] Outpatient Encounter [id number] MACARIO RASCON 02/21 [place] [facility] Outpatient Encounter [id number] 02/21 [place] Outpatient Encounter [id number] 03/07 [place] OFFICE O/P EST MOD 30 MIN [id number] Diagnos is: ICD-10- CM 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 , unspeci fied site AGUSTINA TORRES W 03/27 [place] [facility] THERAPEUTI C EXERCISES [id number] Diagnos is: ICD-10- CM M19.29 Seconda ry osteoar thritis , other specifi ed site MACARIO RASCON S 03/27 [place] O/P EST SF 10 MIN [id number] Diagnos is: ICD-10- CM 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, left eye, stable GERRI ZAPATA LLJAROD K 03/30 [place] [facility] O/P EST HI 40 MIN [id number] Diagnos is: ICD-10- CM I10 Essenti al (primar y) hyperte MARVA Adams 04/04 [place] [facility] ELECTROCAR DIOGRAM TRACING [id number] Diagnos is: ICD-10- CM Z13.6 Encount er for screeni ng for cardiov ascular disorde ANAND Green IG A 04/04 [place] [facility] OFF/OP EST MAY X REQ PHY/QHP [id number] Diagnos is: ICD-10- CM Z77.29 Contact with and exposur e to other hazardo us substan REJI Regalado S 04/04 [place] [facility] HC PRO PHONE CALL 5-10 MIN [id number] Diagnos is: ICD-10- CM I10 Essenti al (primar y) hyperte nsREJI Cordero S 04/04 [place] [facility] EXT ECG>7D<15D REC SCAN A/R [id number] Diagnos is: ICD-10- CM Z13.6 Encount er for screeni ng for cardiov ascular disorde ANAND Green IG A 04/09 [place] HC PRO PHONE CALL 5-10 MIN [id number] Diagnos is: ICD-10- CM Z77.29 Contact with and exposur e to other wacoo substan REJI Regalado S 04/11 [place] [facility] Outpatient Encounter [id number] MEREDITHMACARIO LAST S 04/16 [place] [facility] EXT ECG>7D<15D REC SCAN A/R [id number] Diagnos is: ICD-10- CM Z13.6 Encount er for screeni ng for cardiov ascular disorde ANAND Green IG A 04/20 [place] Outpatient Encounter [id number] MOSHE GUZMÁN S 04/22 [place] [facility] TTE W/DOPPLER COMPLETE [id number] Diagnos is: ICD-10- CM Z13.6 Encount er for screeni ng for cardiov ascular disorde rs MAGDAHEATHER E W 04/23 [place] HC PRO PHONE CALL 5-10 MIN [id number] Diagnos is: ICD-10- CM Z77.29 Contact with and exposur e to other hazardo us substan REJI Regalado 04/26 [place] [facility] Outpatient Encounter [id number] 04/26 [place] [facility] HC PRO PHONE CALL 5-10 MIN [id number] Diagnos is: ICD-10- CM Z77.29 Contact with and exposur e to other hazardo us substan REJI Regalado S 04/26 [place] [facility] Outpatient Encounter [id number] Diagnos is: ICD-10- CM I49.3 Ventric ular prematu re depolar ization MAN,HEATHER E W 04/29 [place] HC PRO PHONE CALL 5-10 MIN [id number] Diagnos is: ICD-10- CM Z77.29 Contact with and exposur e to other hazardo us substan REJI Regalado 04/30 [place] [facility] HC PRO PHONE CALL 5-10 MIN [id number] Diagnos is: ICD-10- CM I10 Essenti al (primar y) hyperte REJI Lemos S 05/04 [place] [facility] OFF/OP EST MAY X REQ PHY/QHP [id number] Diagnos is: ICD-10- CM I10 Essenti al (primar y) hyperte nsion MARIA TERESA,NO RMA J 05/04 [place] [facility] OFFICE O/P NEW SF 15 MIN [id number] Diagnos is: ICD-10- CM H35.81 Retinal edema SUSHIL DE PAULINO,A NA 05/04 [place] Outpatient Encounter [id number] 05/11 [place] [facility] EXT ECG>7D<15D REC SCAN A/R [id number] Diagnos is: ICD-10- CM Z13.6 Encount er for screeni ng for cardiov ascular disorde ANAND Green IG A 05/21 [place] Outpatient Encounter [id number] 05/31 [place] [facility] PH1 ASSMT&MGMT NQHP 11-20 [id number] [id number] Diagnos is: ICD-10- CM 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 Chawla 05/31 [place] [facility] Outpatient Encounter [id number] 06/06 [place] ELECTROCAR DIOGRAM COMPLETE [id number] [id number] Diagnos is: ICD-10- CM Z13.6 Encount er for screeni ng for cardiov ascular disorde ANAND Green IG A 06/26 [place] OFFICE O/P NEW MOD 46 MIN [id number] Diagnos is: ICD-10- CM R00.2 Palpita tions AIKAT,SHAM IK 07/02 [place]-CDD [facility] O/P EST SF 10 MIN [id number] Diagnos is: ICD-10- CM H35.81 Retinal edema ALFONSO LORD B [facility] Social History Combined list of available smoking, tobacco, and other social history from [facility] and [facility] facilities. Social History Type Response Date Comment [facility] e Tobacco smoking status [facility] FORMER USER 04/04/2024 [facility] of [facility] History of tobacco use [place]-TOBACCO FORMER USER 03/25/2023 [facility] History of tobacco use [place]-TOBACCO FORMER USER 02/22/2022 [facility] History of tobacco use [place]-TOBACCO FORMER USER 03/25/2021 [facility]
== END 2024-09-06 23:59 | disposition home or self-care (01) ==
LOC: LAB.DROPOF 14:55
PROVIDERS: PCP Internal Medicine; Visit Provider Internal Medicine
DX: R19.7 Diarrhea, unspecified (principal)
CPT/HCPCS: 87506

== ENCOUNTER 2024-09-21 09:59 | Outpatient (CLI) | payer MEDICARE, BC, SELFPAY ==
--- OUTSIDE RECORDS SUMMARY | 2024-09-21 10:03 | XMS_ITS | Data Portability ---
Author Organization [facility] ELLIS Perales FRANKLIN CLOSED Address [address] [place] [address] Care Team Providers Care Carbon Setter Name Role Phone [facility] Primary Care Provider Assessment No assessment recorded. Plan of Treatment Reminders Order Date Submit Date Provider Last Modified By Organization Details Last Modified Time Details Appointments RECHECK 2024 09:30A M ISAIAH PEREZ MD Not available Not available Not available Lab urinalysi s panel, auto 2023 024 [email or web address] [facility], [address], [place], [address], 04/08/2024 15:21:19 PSA, serum or plasma 2023 024 [email or web address] [facility], [address], [address], [place], [address], 04/08/2024 15:21:19 urinalysi s panel, auto 2023 024 [email or web address] [facility], [address], [address], [place], [address], 10/06/2023 23:45:46 PSA, serum or plasma 2023 024 [email or web address] [facility], [address], [address], [place], [address], 10/06/2023 23:45:47 PSA, serum or plasma [address] [facility], [address], [address], [place], [address], 10/01/2022 11:37:02 urinalysi s panel, auto [address] [facility], [address], [address], [place], [address], 08/20/2022 22:17:15 PSA, serum or plasma [address] [facility], [address], [address], [place], [address], 08/20/2022 22:17:15 PSA, serum or plasma [address] [facility], [address], [address], [place], [address], 07/20/2021 23:03:16 Referral None recorded. Procedures None recorded. Surgeries None recorded. Imaging None recorded. Medication Orders nabumeton e 500 mg tablet 2022 023 [email or web address] [facility], [address] [place], [address], 04/06/2024 09:23:41 doxycycli ne monohydra te 100 mg capsule 2022 023 [email or web address] [facility], [address] [place], [address], 10/05/2023 14:23:40 Patient TargetsNo targets recorded. Patient Instructions Encounter Date Encounter Id Patient Instructions Last Modified By Organization Details Last Modified Time 08/20/2022 [id number] learning about healthy weight [email or web address] Not available 08/20/2022 13:38:34 Reason for Referral None Reported. Results Created Date Observation Date Name Description Value Unit Range Abnormal Flag Note LastModifiedBy Organization Detail LastModifiedTime 07/20/19 22 07/20/2021 PSA, serum or plasm a PSA 12.1 NG/mL 0.0 - 4.0 Not Available [facility] [address], [place], [address], 07/20/2021 12:04:44 08/21/19 23 08/20/2022 PSA, serum or plasm a PSA 20.5 NG/mL 0.0 - 4.0 Not Available [facility] [address], [place], [address], 08/20/2022 13:05:31 08/21/19 23 08/20/2022 urina lysis panel , auto Unknown Analyte Clean Catch Not Available [facility] [address], [place], [address], 08/20/2022 13:04:36 08/21/19 23 08/20/2022 urina lysis panel , auto Unknown Analyte Yellow Not Available [facility] [address], [place], [address], 08/20/2022 13:04:36 08/21/19 23 08/20/2022 urina lysis panel , auto Unknown Analyte Clear Not Available [facility] [address], [place], [address], 08/20/2022 13:04:36 08/21/19 23 08/20/2022 urina lysis panel , auto Unknown Analyte 1.015 Not Available [facility] [address], [place], [address], 08/20/2022 13:04:36 08/21/19 23 08/20/2022 urina lysis panel , auto Unknown Analyte 1.003- 1.035 Not Available [facility] [address], [place], [address], 08/20/2022 13:04:36 08/21/19 23 08/20/2022 urina lysis panel , auto Unknown Analyte 6.0 Not Available [facility] [address], [place], [address], 08/20/2022 13:04:36 08/21/19 23 08/20/2022 urina lysis panel , auto Unknown Analyte 5.0-8. 0 Not Available [facility] [address], [place], [address], 08/20/2022 13:04:36 08/21/19 23 08/20/2022 urina lysis panel , auto Unknown Analyte 25 Veronique/ul Trace Not Available [facility] [address], [place], [address], 08/20/2022 13:04:36 08/21/19 23 08/20/2022 urina lysis panel , auto Unknown Analyte Negati ve Not Available [facility] [address], [place], [address], 08/20/2022 13:04:36 08/21/19 23 08/20/2022 urina lysis panel , auto Unknown Analyte Negati ve Not Available [facility] [address], [place], [address], 08/20/2022 13:04:36 08/21/19 23 08/20/2022 urina lysis panel , auto Unknown Analyte Negati ve Not Available [facility] [address], [place], [address], 08/20/2022 13:04:36 08/21/19 23 08/20/2022 urina lysis panel , auto Unknown Analyte Trace Not Available [facility] [address], [place], [address], 08/20/2022 13:04:36 08/21/19 23 08/20/2022 urina lysis panel , auto Unknown Analyte Negati ve Not Available [facility] [address], [place], [address], 08/20/2022 13:04:36 08/21/19 23 08/20/2022 urina lysis panel , auto Unknown Analyte Normal Not Available [facility] [address], [place], [address], 08/20/2022 13:04:36 08/21/19 23 08/20/2022 urina lysis panel , auto Unknown Analyte Normal Not Available [facility] [address], [place], [address], 08/20/2022 13:04:36 08/21/19 23 08/20/2022 urina lysis panel , auto Unknown Analyte Negati ve Not Available [facility] [address], [place], [address], 08/20/2022 13:04:36 08/21/19 23 08/20/2022 urina lysis panel , auto Unknown Analyte Negati ve Not Available [facility] [address], [place], [address], 08/20/2022 13:04:36 08/21/19 23 08/20/2022 urina lysis panel , auto Unknown Analyte Normal Not Available [facility] [address], [place], [address], 08/20/2022 13:04:36 08/21/19 23 08/20/2022 urina lysis panel , auto Unknown Analyte Normal 1 mg/dl Not Available [facility] [address], [place], [address], 08/20/2022 13:04:36 08/21/19 23 08/20/2022 urina lysis panel , auto Unknown Analyte Negati ve Not Available [facility] [address], [place], [address], 08/20/2022 13:04:36 08/21/19 23 08/20/2022 urina lysis panel , auto Unknown Analyte Negati ve Not Available [facility] [address], [place], [address], 08/20/2022 13:04:36 08/21/19 23 08/20/2022 urina lysis panel , auto Unknown Analyte 50 Ian/ul Not Available [facility] [address], [place], [address], 08/20/2022 13:04:36 08/21/19 23 08/20/2022 urina lysis panel , auto Unknown Analyte Negati ve Not Available [facility] [address], [place], [address], 08/20/2022 13:04:36 10/02/19 23 10/01/2022 PSA, serum or plasm a PSA 13.5 NG/mL 0.0 - 4.0 Not Available [facility] [address], [place], [address], 10/01/2022 11:02:28 10/05/19 24 10/05/2023 PSA, serum or plasm a PSA 13.8 NG/mL 0.0 - 4.0 Not Available [facility] [address], [place], [address], 10/05/2023 14:42:07 10/05/19 24 10/05/2023 urina lysis panel , auto Unknown Analyte Clean Catch Not Available [facility] [address], [place], [address], 10/05/2023 14:24:29 10/05/19 24 10/05/2023 urina lysis panel , auto Unknown Analyte Yellow Not Available [facility] [address], [address], 10/05/2023 14:24:29 10/05/19 24 10/05/2023 urina lysis panel , auto Unknown Analyte Clear Not Available [facility] [address], [place], [address], 10/05/2023 14:24:29 10/05/19 24 10/05/2023 urina lysis panel , auto Unknown Analyte 1.015 Not Available [facility] [address], [place], [address], 10/05/2023 14:24:29 10/05/19 24 10/05/2023 urina lysis panel , auto Unknown Analyte 1.003- 1.035 Not Available [facility] [address], [place], [address], 10/05/2023 14:24:29 10/05/19 24 10/05/2023 urina lysis panel , auto Unknown Analyte 5.0 Not Available [facility] [address], [place], [address], 10/05/2023 14:24:29 10/05/19 24 10/05/2023 urina lysis panel , auto Unknown Analyte 5.0-8. 0 Not Available [facility] [address], [place], [address], 10/05/2023 14:24:29 10/05/19 24 10/05/2023 urina lysis panel , auto Unknown Analyte Negati ve Not Available [facility] [address], [place], [address], 10/05/2023 14:24:29 10/05/19 24 10/05/2023 urina lysis panel , auto Unknown Analyte Negati ve Not Available [facility] [address], [place], [address], 10/05/2023 14:24:29 10/05/19 24 10/05/2023 urina lysis panel , auto Unknown Analyte Negati ve Not Available [facility] [address], [place], [address], 10/05/2023 14:24:29 10/05/19 24 10/05/2023 urina lysis panel , auto Unknown Analyte Negati ve Not Available [facility] [address], [place], [address], 10/05/2023 14:24:29 10/05/19 24 10/05/2023 urina lysis panel , auto Unknown Analyte Negati ve Not Available [facility] [address], [place], [address], 10/05/2023 14:24:29 10/05/19 24 10/05/2023 urina lysis panel , auto Unknown Analyte Negati ve Not Available [facility] [address], [place], [address], 10/05/2023 14:24:29 10/05/19 24 10/05/2023 urina lysis panel , auto Unknown Analyte Normal Not Available [facility] [address], [place], [address], 10/05/2023 14:24:29 10/05/19 24 10/05/2023 urina lysis panel , auto Unknown Analyte Normal Not Available [facility] [address], [place], [address], 10/05/2023 14:24:29 10/05/19 24 10/05/2023 urina lysis panel , auto Unknown Analyte 15 mg/dl (Sm) Not Available [facility] [address], [place], [address], 10/05/2023 14:24:29 10/05/19 24 10/05/2023 urina lysis panel , auto Unknown Analyte Negati ve Not Available [facility] [address], [place], [address], 10/05/2023 14:24:29 10/05/19 24 10/05/2023 urina lysis panel , auto Unknown Analyte Normal Not Available [facility] [address], [place], [address], 10/05/2023 14:24:29 10/05/19 24 10/05/2023 urina lysis panel , auto Unknown Analyte Normal 1 mg/dl Not Available [facility] [address], [place], [address], 10/05/2023 14:24:29 10/05/19 24 10/05/2023 urina lysis panel , auto Unknown Analyte Negati ve Not Available [facility] [address], [place], [address], 10/05/2023 14:24:29 10/05/19 24 10/05/2023 urina lysis panel , auto Unknown Analyte Negati ve Not Available [facility] [address], [place], [address], 10/05/2023 14:24:29 10/05/19 24 10/05/2023 urina lysis panel , auto Unknown Analyte 250 Ian/ul Not Available [facility] [address] [place] [address] [address], [place], [address], 10/05/2023 14:24:29 10/05/19 24 10/05/2023 urina lysis panel , auto Unknown Analyte Negati ve Not Available [facility] [address], [place], [address], 10/05/2023 14:24:29 04/06/20 24 04/06/2024 PSA, serum or plasm a PSA 12.1 NG/mL 0.0 - 4.0 Not Available [facility] [address] [facility] [address], [place], [address], 04/06/2024 10:05:23 04/06/20 24 04/06/2024 urina lysis panel , auto Unknown Analyte Clean Catch Not Available [facility] [address], [place], [address], 04/06/2024 08:54:16 04/06/2004/06/2024 urina lysis panel , auto Unknown Analyte Yellow Not Available [facility] [address], [place], [address], 04/06/2024 08:54:16 04/06/20 24 04/06/2024 urina lysis panel , auto Unknown Analyte Clear Not Available [facility] [address], [place], [address], 04/06/2024 08:54:16 04/06/20 24 04/06/2024 urina lysis panel , auto Unknown Analyte 1.010 Not Available [facility] [address], [place], [address], 04/06/2024 08:54:16 04/06/2004/06/2024 urina lysis panel , auto Unknown Analyte 1.003- 1.035 Not Available [facility] [address], [place], [address], 04/06/2024 08:54:16 04/06/20 24 04/06/2024 urina lysis panel , auto Unknown Analyte 8.0 Not Available [facility] [address], [place], [address], 04/06/2024 08:54:16 04/06/20 24 04/06/2024 urina lysis panel , auto Unknown Analyte 5.0-8. 0 Not Available [facility] [address], [place], [address], 04/06/2024 08:54:16 04/06/20 24 04/06/2024 urina lysis panel , auto Unknown Analyte Negati ve Not Available [facility] [address], [place], [address], 04/06/2024 08:54:16 04/06/20 24 04/06/2024 urina lysis panel , auto Unknown Analyte Negati ve Not Available [facility] [address], [place], [address], 04/06/2024 08:54:16 04/06/20 24 04/06/2024 urina lysis panel , auto Unknown Analyte Negati ve Not Available [facility] [address], [place], [address], 04/06/2024 08:54:16 04/06/2004/06/2024 urina lysis panel , auto Unknown Analyte Negati ve Not Available [facility] [address], [place], [address], 04/06/2024 08:54:16 04/06/20 24 04/06/2024 urina lysis panel , auto Unknown Analyte Negati ve Not Available [facility] [address], [place], [address], 04/06/2024 08:54:16 04/06/20 24 04/06/2024 urina lysis panel , auto Unknown Analyte Negati ve Not Available [facility] [address], [place], [address], 04/06/2024 08:54:16 04/06/20 24 04/06/2024 urina lysis panel , auto Unknown Analyte Normal Not Available [facility] [address], [place], [address], 04/06/2024 08:54:16 04/06/20 24 04/06/2024 urina lysis panel , auto Unknown Analyte Normal Not Available [facility] [address], [place], [address], 04/06/2024 08:54:16 04/06/2004/06/2024 urina lysis panel , auto Unknown Analyte Negati ve Not Available [facility] [address], [place], [address], 04/06/2024 08:54:16 04/06/2004/06/2024 urina lysis panel , auto Unknown Analyte Negati ve Not Available [facility] [address], [place], [address], 04/06/2024 08:54:16 04/06/2004/06/2024 urina lysis panel , auto Unknown Analyte Normal Not Available [facility] [address], [place], [address], 04/06/2024 08:54:16 04/06/2004/06/2024 urina lysis panel , auto Unknown Analyte Normal 1 mg/dl Not Available [facility] [address], [place], [address], 04/06/2024 08:54:16 04/06/2004/06/2024 urina lysis panel , auto Unknown Analyte Negati ve Not Available [facility] [address], [place], [address], 04/06/2024 08:54:16 04/06/20 24 04/06/2024 urina lysis panel , auto Unknown Analyte Negati ve Not Available [facility] [address] [facility] [address], [place], [address], 04/06/2024 08:54:16 04/06/20 24 04/06/2024 urina lysis panel , auto Unknown Analyte 50 Ian/ul Not Available [facility] [address] [facility] [address], [place], [address], 04/06/2024 08:54:16 04/06/20 24 04/06/2024 urina lysis panel , auto Unknown Analyte Negati ve Not Available [facility] [address] [facility] [address], [place], [address], 04/06/2024 08:54:16 Result Notes None recorded. Problems Name Problem SNOMED Code Status Onset Date Resolution Date Notes Provider Name and Address Organization Details Recorded Time Prostate specific antigen above reference range 228067384 Active 2014 From Automated Load;Prov ider: Isaiah Perez;S tatus: Active Not Available [facility] 6 01:49:14 Lower urinary tract symptoms due to benign prostatic hypertrop 57027439637 101 Active 2015 From Automated Load;Prov ider: Maggie Isaiah;S tatus: Active Not Available [facility] 6 01:49:14 Problem Notes None recorded. Procedures Surgical History Date Name Laterality Status Provider Name and Address Organization Details Recorded Time 7 Hernia Repair completed Murelene Shayne [facility] 04/08/2017 14:15:26 Prostate biopsy, any mthd completed Ivette Reynoso [facility] 08/06/2016 14:18:54 Imaging Results None recorded. Procedure Notes None recorded. Medical Equipment None Reported. Allergies Allergen ID Allergen Name Allergen Category Reaction Reaction Severity Criticality Documentation Date Start Date Code Code System Note Provider Name and Address Organization Details Recorded Time 648823 Product containin g penicilli n (product) medicatio n Not available Not available Not available 04/16/20162012 12009 1583 SNOMED Comme nt: Creat ed By: Adolfo pepeCr eated Date: 05/04 11:15 :40 AM; Not Available [facility] 03:[facility]:07 Medications Name Sig Start Date Stop [...] Address Organization Details Last Updated DateTime 07/20/2021 45961.82 g 22.2 kg/m2 177.8 cm Germaine Connor [facility] 07/20/2021 12:04:29 Date Recorded Body height Body mass index (BMI) Body weight Provider Name and Address Organization Details Last Updated DateTime 08/20/2022 177.8 cm 22.2 kg/m2 06375.82 g Katie Bella [facility] 08/20/2022 13:03:46 Date Recorded Body height Body mass index (BMI) Body weight Provider Name and Address Organization Details Last Updated DateTime 10/01/2022 177.8 cm 22.2 kg/m2 97624.82 christi Ivette Reynoso [facility] 10/01/2022 11:02:13 Date Recorded Body height Body mass index (BMI) Body weight Provider Name and Address Organization Details Last Updated DateTime 10/05/2023 177.8 cm 22.2 kg/m2 35905.82 g Lauren Tolentino [facility] 10/05/2023 14:22:44 Date Recorded Body height Body mass index (BMI) Body weight Provider Name and Address Organization Details Last Updated DateTime 04/06/2024 177.8 cm 22.7 kg/m2 90409.59 christi Bella [facility] 04/06/2024 09:22:31 Social History Question Answer Notes LastModified by Organizat ion Details LastModified Time Tobacco Smoking Status Former Smoker Ivette Reynoso [facility] 08/06/2016 14:18:30 What Is Your Level Of Alcohol Consumption? Occasional Information not available 08/06/2016 How Much Tobacco Do You Chew? None [email or web address] Information not available 10/18/2018 Marital Status Informat ion not available 08/06/2016 What Was The Date Of Your Most Recent Tobacco Screening? 04/06/2024 [email or web address] Information not available 04/06/2024 Do You Use Any Illicit Or Recreational Drugs? No [email or web address] Information not available 07/20/2021 Has Tobacco Cessation Counseling Been Provided? No [email or web address] Information not available 07/20/2021 Have You Recently Traveled Abroad? No [email or web address] Information not available 07/20/2021 Do You Or Have You Ever Used Any Other Forms Of Tobacco Or Nicotine? No [email or web address] Information not available 07/20/2021 Sex: Male Functional [...] Emphysema N Erectile Dysfunction N Depression N Glaucoma N Pneumonia N Anesthesia Complications N Cancer Prostate N Anxiety Disorder N Arthritis N Acid Reflux (GERD) N Cancer N Stroke N Radiation Therapy N High Cholesterol N High PSA Y Liver Disease N Kidney Disease N Allergies/Hayfever N False Teeth N Heart Conditions N Chronic Obstructive Pulmonary Disease N Chemotherapy N Anemia N Urinary Problems N Ulcers N Heart Attack ([place]) N Mental Illness N Diabetes N Seizures/Epilepsy N Low Testosterone N Tuberculosis N AIDS/HIV N Congestive Heart Failure (CHF) N BPH Y Urinary Tract Infection N Asthma Y Sleep Apnea N Thyroid Disorder N Hepatitis N Heart Disease Y Bronchitis N Hypertension N Past Encounters Encounter ID Performer Location Encounter Start Date Encounter Closed Date Diagnosis/Indication Diagnosis SNOMED-CT Code Diagnosis ICD10 Code Diagnosis Note [id number] ISAIAH PEREZ MD [facility] [address] [place] [address] 08/06/2016 14:09:46 08/09/2016 16:30:50 Prostate specific antigen above reference range 086893273 R97.20 due to the recent change she will follow-up in 2 months with repeat PSA. [id number] ISAIAH PEREZ MD [facility] [address] [place] [address] 10/08/2016 14:03:21 10/11/2016 12:15:23 Prostate specific antigen above reference range [id number] R97.20 Follow-up 6 months with PSA [id number] ISAIAH PEREZ MD [facility] [address] [place] [address] 04/08/2017 13:21:23 04/12/2017 08:01:06 Prostate specific antigen above reference range [id number] R97.20 Follow-up 3 months with PSA [id number] ISAIAH PEREZ MD [facility] [address] [place] [address] 07/13/2017 13:11:25 07/15/2017 11:12:14 Prostate specific antigen above reference range [id number] R97.20 Follow-up 6 months with PSA [id number] ISAIAH PEREZ MD [facility] [address] [place] [id number] 01/18/2018 15:30:12 01/18/2018 17:48:31 Prostate specific antigen above reference range [id number] R97.20 Follow-up 3 months with PSA [id number] ISAIAH PEREZ MD [facility] [address] [place] [address] 04/19/2018 15:47:30 04/19/2018 16:48:56 Prostate specific antigen above reference range [id number] R97.20 Follow-up 6 months with PSA [id number] ISAIAH PEREZ MD [facility] [address] [place] [address] 10/18/2018 16:03:21 10/18/2018 17:11:39 Prostate specific antigen above reference range [id number] R97.20 Follow-up 6 months with PSA Renal mass 852651767 N28 .89 awaiting additional studies as above [id number] ISAIAH PEREZ MD [facility] [address] [address] 04/18/2019 15:01:06 04/18/2019 16:43:44 Prostate specific antigen above reference range [id number] R97.20 Follow-up 6 months with PSA Renal mass 990171586 N28 .[address] scan without and with contrast 6 months renal mass protocol [id number] ISAIAH PEREZ MD [facility] [address] [address] 12/10/2019 12:50:05 12/10/2019 13:53:03 Prostate specific antigen above reference range [id number] R97.20 Follow-up 6 months with PSA Benign pro static hyperplasia with outflow obstruction 058919233 N40.1 he currently takes no urologic medication s and is satisfied [id number] ISAIAH PEREZ MD [facility] [address] [address] 06/09/2020 10:29:12 06/09/2020 14:15:11 Prostate specific antigen above reference range [id number] R97.20 Follow-up 6 months with PSA Benign pro static hyperplasia with outflow obstruction 954093264 N40.1 he currently takes no urologic medication s and is satisfied [id number] ISAIAH PEREZ MD [facility] [address] [address] 07/20/2021 11:00:49 07/20/2021 12:12:45 Prostate specific antigen above reference range [id number] R97.20 Follow-up 6 months with PSA [id number] ISAIAH PEREZ MD [facility] [address] [address] 08/20/2022 12:45:56 08/20/2022 13:37:56 Prostate specific antigen above reference range [id number] R97.20 1 month with PSA Chronic prostatitis 1990 5009 N41.1 [id number] ISAIAH PEREZ MD [facility] [address] [address] 10/01/2022 10:15:01 10/01/2022 11:37:39 Prostate specific antigen above reference range [id number] R97.20 6 month with PSA Chronic prostatitis 1989 5009 N41.1 Monitor [id number] ISAIAH PEREZ MD [facility] [address] [place] [address] 10/05/2023 14:04:37 10/05/2023 14:57:28 Prostate specific antigen above reference range [id number] R97.20 6 month with PSA Benign pro static hyperplasia with outflow obstruction [id number] N40.1 he currently takes no urologic medication s and is satisfied [id number] ISAIAH PEREZ MD [facility] [address] [place] [phone] 04/06/2024 08:45:05 04/06/2024 10:21:20 Prostate specific antigen above reference range [id number] R97.20 6 month with PSA Health Concerns Section Related Observation LastModified by Organization Detai ls LastModified Time None Recorded Concern Status LastModified by Organization Details LastModified Time None Recorded Advance Directives Directive None Recorded Payers Encounter Date Sequence Insurance Name Policy Number Policy Ritchie Covered Member ID Ritchie Member ID Guarantor Name 07/20/2021 1 [place] Timothy Peterson [id number] Timothy Peterson 07/20/2021 2 [place] 111 Timothy Peterson [id number] Timothy Peterson 08/20/2022 1 [place] [id number] Tiomthy Peterson 08/20/2022 2 [place] 111 Timothy Peterson [id number] Timothy Peterson 10/01/2022 1 [place] [id number] Timothy Peterson 10/01/2022 2 [place] 111 Timothy Peterson [id number] Timothy Peterson 10/05/2023 1 [place] Peterson [id number] Timothy Peterson 10/05/2023 2 [place] 111 Timothy Peterson [id number] Timothy Peterson 04/06/2024 1 [place] Timothy Peterson [id number] Timothy Peterson 04/06/2024 2 [place] 111 Timothy Peterson [id number] Timothy Peterson Notes Date Note Type Note Provider Name and Address Organization Details Recorded Time 07/20/2021 text/html Patient is here follow-up of chronically elevated PSA. He has had previous negative biopsies of the prostate on several occasions. He tends to have considerable fluctuations. His PSA last visit was 11.4. He remains very active. His PSA today is pending ISAIAH PEREZ MD [address] [place] [address], [phone], [facility] 07/20/2021 23:03:50 08/20/2022 text/html Patient is here for follow-up of mildly elevated chronically with PSA. He has mild obstructive symptoms. His obstructive symptoms have been more bothersome with some hesitancy and double voiding. PSA at last visit a year ago was 12.1 but today up to 20.5. He has no dysuria. He has been more physically active and started running. ISAIAH PEREZ MD [address] [place] [address], [phone], [facility] 08/20/2022 13:38:56 10/01/2022 text/html Patient is here [...] x0. I suggest continued observation[place], [address], [facility] 10/01/2022 11:37:18 10/05/2023 text/html Patient is here in follow-up of chronically elevated and fluctuating PSA. He has had previously had negative biopsies of the prostate. He has moderate obstructive symptoms with seems to fluctuate in severity. He may have nocturia x 0 or x 3. For the most part he is satisfied. His PSA today was stable at 13.8. [place], [address], [facility] 10/06/2023 23:46:47 04/06/2024 text/html Patient is here for scheduled 6-month follow-up with chronically elevated PSA. He has had several biopsies which were negative. He has moderate symptoms which seem to fluctuate in severity. He has nocturia x 2. PSA at last visit was 13.8 and today 12.1. He is having some issues with hypertension. [facility] followed [facility] the [facility] and they are monitoring this[place], [address], [facility] 04/08/2024 15:21:52
--- OUTSIDE RECORDS SUMMARY | 2024-09-21 10:04 | XMS_ITS | Continuity of Care Document ---
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 It does not include entries that were removed or entered in error. Problem Status Onset Date Problem Type Date of Resolution Comments Source History of polyp of colon Active 9 Condition Jul 10, 2021 Entered By: HUDSON MUNGUIA RA Comment: [facility] Serology Prostate-specific Antigen (PSA) Elevated Active Condition [facility] visit for: pre-employment physical Active Condition [facility] visit: ears/hearing exam for hearing conservation, treatment Active Condition [facility] visit for: ears / hearing exam Inactive Condition [facility] NORMAL ROUTINE HISTORY AND PHYSICAL ADULT (18-65) Inactive Condition [facility] Diverticular Disease of Colon ([facility] [id number]) Active Condition [facility] Elevated PSA Active Condition [facility] Exposure to potentially hazardous chemical [facility] Family history of diabetes mellitus Active Condition [place] [facility] History of SARS-CoV-2 Active Condition [facility] Internal hemorrhoids Active Condition [facility] Multiple renal cysts Active Condition [facility] Diagnosis: ICD-10-CM H35.81 Retinal edema [facility] Diagnosis: ICD-10-CM R00.2 Palpitations Active Diagnosis [facility] Diagnosis: ICD-10-CM Z13.6 Encounter for screening for cardiovascular disorders Active Diagnosis [facility] Diagnosis: ICD-10-CM Z71.89 Other specified counseling Active Diagnosis [facility] Diagnosis: ICD-10-CM I10 Essential (primary) hypertension Active Diagnosis [facility] Diagnosis: ICD-10-CM Z77.29 Contact with and exposure to other hazardous substances Active Diagnosis [facility] Diagnosis: ICD-10-CM I49.3 Ventricular premature depolarization Active Diagnosis [facility] Diagnosis: ICD-10-CM 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, left eye, stable Active Diagnosis [facility] Diagnosis: ICD-10-CM 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, other specified site Active Diagnosis [facility] Diagnosis: ICD-10-CM M19.93 Secondary osteoarthritis, unspecified site Active Diagnosis [facility] Diagnosis: ICD-10-CM M25.531 Pain in right wrist Active Diagnosis [facility] Diagnosis: ICD-10-CM S62.342A Nondisp fx of base of third bone, right hand, init Active Diagnosis [facility] Diagnosis: ICD-10-CM Z46.1 Encounter for fitting and adjustment of hearing aid Active Diagnosis [facility] Diagnosis: ICD-10-CM H40.013 Open angle with borderline findings, low risk, bilateral Active Diagnosis [facility] Diagnosis: ICD-10-CM M25.562 Pain in left knee Active Diagnosis [facility] Diagnosis: ICD-10-CM R97.20 Elevated prostate specific antigen [PSA] Active Diagnosis [facility] Medications Combined list of outpatient medications from Department of Defense and [facility] facilities.Medications provided include 1) outpatient medications from the last 15 months, and 2) patient-reported medications. Medication Details Route Status Patient Instructions Prescription Expires Prescription Number Last Dispense Date Ordering Provider Order Date Order Qty Source DEXTRAN 70/GLYCERIN 0.2%/HYPROM ELLOSE 0.3% SOLN,OPH PUT 1 DROP IN EYE(S) TWICE A DAY FOR DRY EYES OPHTHA LMIC ACTIVE 09/30/2024 [id number] GODFREY ESCAMILLA N 2023 15 [place] [facility] DICLOFENAC NA 1% GEL,TOP APPLY 4 GRAM STRIP TO AFFECTED AREA EVERY 6 HOURS FOR PAIN TOPICA L ACTIVE 03/28/2025 [id number] 4 John TORRES W 2023 100 [place] HYDROCHLORO THIAZIDE 12.5MG/INDER NOPRIL 10MG TAB TAKE 1 TABLET BY MOUTH DAILY FOR BLOOD PRESSURE /HEART ORAL ACTIVE 05/05/2025 [id number] 4 BELLE MUNGUIA R 2023 90 [place] [facility] HYDROCHLORO THIAZIDE 12.5MG/INDER NOPRIL 10MG TAB TAKE 1 TABLET BY MOUTH DAILY FOR BLOOD PRESSURE /HEART ORAL DISCONT INUED (EDIT) 06/03/2024 [id number] 4 BELLE MUNGUIAA R 2023 60 [place] [facility] METOPROLOL SUCCINATE 50MG TAB,SA TAKE ONE-HALF TABLET BY MOUTH DAILY FOR BLOOD PRESSURE ORAL ACTIVE 07/03/2025 [id number] 5 JOSÉ MIGUEL HURST LALI 2024 45 [place] ROSUVASTATI N CA 40MG TAB TAKE ONE-HALF TABLET BY MOUTH DAILY FOR CHOLESTE ROL ORAL ACTIVE 04/05/2025 [id number] 5 BELLE MUNGUIA R 2023 45 [place] [facility] Allergies, Adverse Reactions, Alerts Combined list of allergies from Department of Defense and Veterans Affairs facilities. It does not include entries that were removed or entered in error. Substance Category Reaction Severity Reaction type Status Date Reported Comments Source PENICILLIN Propensity to adverse reactions to drug (finding) Eruption active 1 [facility] PENICILLINS Drug allergy (disorder) Unknown active 6 [facility] Immunizations Combined list of available immunizations from the Department of Defense and Veterans Affairs facilities. 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 Status Comments Source TDAP 1 2016 115 complet ed HISTORICA L INFORMATI ON - FROM OTHER REGISTRY, [place] [facility] Results Combined list of recent chemistry, [...] 2024 03:22 PM Reporting Lab: CARLOS OAKLEY [address] [address] Performing Lab: CARLOS OAKLEY [address] [address] [facility] PANEL 1 UREA NITROGEN [MASS/VOLUM E] [...] 2024 03:22 PM Reporting Lab: CARLOS OAKLEY [facility] [address] [facility] [address] Performing Lab: YASMANIDENZELJaren OAKLEY [facility] [address] [facility] [address] [facility] PANEL 1 GLUCOSE [MASS/VOLUM E] IN [...] 2024 03:22 PM Reporting Lab: CARLOS OAKLEY [facility] [address] [facility] [address] Performing Lab: CARLOS OAKLEY [address] [address] [facility] PANEL 1 SODIUM [MOLES/VOLU ME] IN [...] 2024 03:22 PM Reporting Lab: CARLOS OAKLEY [address] [address] Performing Lab: CARLOS OAKLEY [address] [address] [facility] PANEL 1 POTASSIUM [MOLES/VOLU ME] IN [...] Apr 04, 2024 03:22 PM Reporting Lab: [facility] [address] [address] Performing Lab: YASMANIDENZEL-Sarbjit [address] [address] [facility] PANEL 1 CHLORIDE [MOLES/VOLU ME] IN [...] 2024 03:22 PM Reporting Lab: CARLOS OAKLEY [facility] [address] [place] [address] Performing Lab: CARLOS OAKLEY [address] [address] [facility] PANEL 1 CARBON DIOXIDE, TOTAL [MOLES/VOLU [...] Apr 04, 2024 03:22 PM Reporting Lab: MUSASarbjit [address] [address] Performing Lab: MUSA[address] [address] [facility] PANEL 1 CALCIUM [MASS/VOLUM E] IN [...] 2024 03:22 PM Reporting Lab: CARLOS OAKLEY [address] [address] Performing Lab: CARLOS OAKLEY [address] [address] [facility] PANEL 1 ANION GAP 3 IN [...] 2024 03:22 PM Reporting Lab: CARLOS OAKLEY [address] [address] Performing Lab: CARLOS OAKLEY [address] [address] [facility] PANEL 1 GLOMERULAR FILTRATION RATE/1.73 SQ M.PREDICTED [VOLUME [...] 2024 03:22 PM Reporting Lab: CARLOS OAKLEY [address] [address] Performing Lab: CARLOS OAKLEY [address] [address] [facility] PANEL 5 CREATININE [MASS/VOLUM E] IN [...] 2024 11:13 AM Reporting Lab: CARLOS OAKLEY [address] [address] Performing Lab: CARLOS OAKLEY [address] [address] [facility] PANEL 5 UREA NITROGEN [MASS/VOLUM E] [...] 2024 11:13 AM Reporting Lab: CARLOS OAKLEY [address] [address] Performing Lab: CARLOS OAKLEY [address] [address] [facility] PANEL 5 GLUCOSE [MASS/VOLUM E] IN [...] 2024 11:13 AM Reporting Lab: CARLOS OAKLEY [address] [address] Performing Lab: CARLOS OAKLEY [address] [address] [facility] PANEL 5 SODIUM [MOLES/VOLU ME] IN [...] 2024 11:13 AM Reporting Lab: CARLOS OAKLEY [address] [address] Performing Lab: CARLOS OAKLEY [address] [address] [facility] POTASSIUM [MOLES/VOLU ME] IN SERUM [...] 2024 11:13 AM Reporting Lab: CARLOS OAKLEY [facility] [address] [facility] [address] Performing Lab: CARLOS OAKLEY [facility] [address] [facility] [address] [facility] PANEL 5 CHLORIDE [MOLES/VOLU ME] IN [...] 2024 11:13 AM Reporting Lab: CARLOS OAKLEY [facility] [address] [facility] [address] Performing Lab: CARLOS OAKLEY [facility] [address] [facility] [address] [facility] PANEL 5 CARBON DIOXIDE, TOTAL [MOLES/VOLU ME] IN SERUM OR PLASMA 26 mmol/L - 04/04 Specimen Type: PLASMA Comment: Estimated [...] 11:13 AM Reporting Lab: [facility] OAK[facility] [address] [address] Performing Lab: ANTONELLASarbjit OAKLEY [address] [address] [facility] PANEL 5 CALCIUM [MASS/VOLUM E] IN [...] Apr 03, 2024 11:13 AM Reporting Lab: [address] [address] Performing Lab: [address] [address] [facility] PANEL 5 PROTEIN [MASS/VOLUM E] IN [...] decrease <15 G5 Kidney failure Ordering Provider: HUSDON MUNGUIA RA Report Released Date/Time: Apr 03, 2024 11:13 AM Reporting Lab: CARLOS OAKLEY [address] [address] Performing Lab: CARLOS OAKLEY [address] [address] [facility] PANEL 5 ALBUMIN [MASS/VOLUM E] IN [...] 2024 11:13 AM Reporting Lab: CARLOS OAKLEY [address] [address] Performing Lab: CARLOS OAKLEY [address] [address] [facility] PANEL 5 BILIRUBIN.T OTAL [MASS/VOLUM E] [...] 2024 11:13 AM Reporting Lab: CARLOS OAKLEY [address] [address] Performing Lab: [address] [address] [facility] PANEL 5 ASPARTATE AMINOTRANSF ERASE [ENZYMATIC [...] 2024 11:13 AM Reporting Lab: CARLOS OAKLEY [address] [address] Performing Lab: CARLOS OAKLEY [address] [address] [facility] PANEL 5 ALANINE AMINOTRANSF ERASE [ENZYMATIC [...] 2024 11:13 AM Reporting Lab: CARLOS OAKLEY [address] [address] Performing Lab: CARLOS OAKLEY [address] [address] [facility] PANEL 5 ANION GAP 3 IN [...] 2024 11:13 AM Reporting Lab: CARLOS OAKLEY [address] [address] Performing Lab: CARLOS OAKLEY [address] [address] [facility] PANEL 5 ALKALINE PHOSPHATASE [ENZYMATIC ACTIVITY/VO [...] 2024 11:13 AM Reporting Lab: CARLOS OAKLEY [address] [address] Performing Lab: CARLOS OAKLEY [address] [address] [facility] PANEL 5 GLOMERULAR FILTRATION RATE/1.73 SQ [...] 2024 11:13 AM Reporting Lab: CARLOS OAKLEY [address] [address] Performing Lab: CARLOS OAKLEY [address] [address] [facility] LIPID PROFILE CHOLESTEROL [MASS/VOLUM E] IN [...] 2024 11:13 AM Reporting Lab: CARLOS OAKLEY [address] [address] Performing Lab: CARLOS OAKLEY [address] [address] [facility] LIPID PROFILE TRIGLYCERID E [MASS/VOLUM E] [...] 2024 11:13 AM Reporting Lab: CARLOS OAKLEY [facility] [address] [facility] [address] Performing Lab: CARLOS OAKLEY [facility] [address] [facility] [address] [facility] LIPID PROFILE CHOLESTEROL IN HDL [MASS/VOLUM [...] 2024 11:13 AM Reporting Lab: CARLOS OAKLEY [address] [address] Performing Lab: CARLOS OAKLEY [address] [address] [facility] LIPID PROFILE CHOLESTEROL IN LDL [MASS/VOLUM [...] Apr 03, 2024 11:13 AM Reporting Lab: [address] [address] Performing Lab: [address] [address] [facility] GLYCOHEMO GLOBIN HEMOGLOBIN A1C/HEMOGLO BIN.TOTAL IN BLOOD BY HPLC 5.4 4.4 - 6.4 04/04 Specimen Type: BLOOD Comment: [facility] guidelines for A1c interpretat ion: Glycemic control targets are based on Shared Decision Making between clinicians and patients. Criteria used to establish an A1c target recommendat ion can be found at https://www .[place].gov/ignacio lityandpati entsafety/ and include the use of [...] 9.27. Ref: https://ngs p.org/CAPda ta.asp. The in-house [employer]-Standard Treasury D-100 analyzer has a historical CV <= 2%. Contact the laboratory for further performance characteris tics of this assay. Ordering Provider: HUDSON MUNGUIA RA Report Released Date/Time: Apr 03, 2024 11:13 AM Reporting Lab: [address] [address] Performing Lab: [address] [address] [facility] CRP (for acute inflammat ion) C [...] 2024 11:13 AM Reporting Lab: CARLOS OAKLEY [address] [address] Performing Lab: CARLOS OAKLEY [address] [address] [facility] THYROID PROFILE THYROTROPIN [UNITS/VOLU ME] IN [...] 2024 11:13 AM Reporting Lab: CARLOS OAKLEY [facility] [address] [facility] [address] Performing Lab: CARLOS OAKLEY [facility] [address] [facility] [address] [facility] THYROID PROFILE FREE T4 1.06 ng/mL [...] Apr 03, 2024 11:13 AM Reporting Lab: [address] [address] Performing Lab: [phone] [place] [address] SED RATE (ISED) ERYTHROCYTE SEDIMENTATI ON RATE BY PHOTOMETRIC METHOD 2 mm/h 0 - 20 04/04 Specimen Type: BLOOD No comment entered. Ordering Provider: HUDSON MUNGUIA RA Report Released Date/Time: Apr 04, 2024 10:26 AM Reporting Lab: [address] [address] Performing Lab: [place] [address] [place] [address] AUTOMATED DIFF LYMPHOCYTES /100 LEUKOCYTES IN BLOOD BY AUTOMATED COUNT 24.0 24.0 - 44.0 04/04 Specimen Type: BLOOD No comment entered. Ordering Provider: HUDSON MUNGUIA RA Report Released Date/Time: Apr 04, 2024 10:26 AM Reporting Lab: [address] [address] Performing Lab: [place] [address] [place] [address] AUTOMATED DIFF MONOCYTES/1 00 LEUKOCYTES IN BLOOD BY AUTOMATED COUNT 13.6 0.1 - 6.0 04/04 H Specimen Type: BLOOD No comment entered. Ordering Provider: HUDSON MUNGUIA RA Report Released Date/Time: Apr 04, 2024 10:26 AM Reporting Lab: [address] [address] Performing Lab: [address] [address] [facility] AUTOMATED DIFF GRANULOCYTE S/100 LEUKOCYTES IN BLOOD BY AUTOMATED COUNT 58.4 42.0 - 75.0 04/04 Specimen Type: BLOOD No comment entered. Ordering Provider: HUDSON MUNGUIA RA Report Released Date/Time: Apr 04, 2024 10:26 AM Reporting Lab: [address] [address] Performing Lab: [address] [address] [facility] AUTOMATED DIFF LYMPHOCYTES [#/VOLUME] IN BLOOD BY AUTOMATED COUNT 1.47 10*3/u L 1.20 - 3.40 04/04 Specimen Type: BLOOD No comment entered. Ordering Provider: HUDSON MUNGUIA RA Report Released Date/Time: Apr 04, 2024 10:26 AM Reporting Lab: [address] [address] Performing Lab: [address] [address] [facility] AUTOMATED DIFF MONOCYTES [#/VOLUME] IN BLOOD BY AUTOMATED COUNT 0.83 10*3/u L 0.00 - 0.60 04/04 H Specimen Type: BLOOD No comment entered. Ordering Provider: HUDSON MUNGUIA RA Report Released Date/Time: Apr 04, 2024 10:26 AM Reporting Lab: [address] [address] Performing Lab: [address] [address] [facility] AUTOMATED DIFF GRANULOCYTE S [#/VOLUME] IN BLOOD BY AUTOMATED COUNT 3.58 10*3/u L 1.40 - 6.50 04/04 Specimen Type: BLOOD No comment entered. Ordering Provider: HUDSON MUNGUIA RA Report Released Date/Time: Apr 04, 2024 10:26 AM Reporting Lab: [address] [address] Performing Lab: [address] [address] [facility] AUTOMATED DIFF BASOPHILS/1 00 LEUKOCYTES IN BLOOD BY AUTOMATED COUNT 0.7 0.0 - 3.0 04/04 Specimen Type: BLOOD No comment entered. Ordering Provider: HUDSON MUNGUIA RA Report Released Date/Time: Apr 04, 2024 10:26 AM Reporting Lab: [address] [address] Performing Lab: [address] [address] [facility] AUTOMATED DIFF BASOPHILS [#/VOLUME] IN BLOOD BY AUTOMATED COUNT 0.04 10*3/u L 0.00 - 0.20 04/04 Specimen Type: BLOOD No comment entered. Ordering Provider: HUDSON MUNGUIA RA Report Released Date/Time: Apr 04, 2024 10:26 AM Reporting Lab: [place] [phone] Performing Lab: [address] AUTOMATED DIFF EOSINOPHILS /100 LEUKOCYTES IN BLOOD BY AUTOMATED COUNT 3.1 0.0 - 10.0 04/04 Specimen Type: BLOOD No comment entered. Ordering Provider: HUDSON MUNGUIA RA Report Released Date/Time: Apr 04, 2024 10:26 AM Reporting Lab: [place] [address] Performing Lab: [address] AUTOMATED DIFF EOSINOPHILS [#/VOLUME] IN BLOOD BY AUTOMATED COUNT 0.19 10*3/u L 0.00 - 0.70 04/04 Specimen Type: BLOOD No comment entered. Ordering Provider: HUDSON MUNGUIA RA Report Released Date/Time: Apr 04, 2024 10:26 AM Reporting Lab: [place] [phone] Performing Lab: [address] AUTOMATED DIFF IMMATURE GRANULOCYTE S/100 LEUKOCYTES IN BLOOD 0.2 0.0 - 0.5 04/04 Specimen Type: BLOOD No comment entered. Ordering Provider: HUDSON MUNGUIA RA Report Released Date/Time: Apr 04, 2024 10:26 AM Reporting Lab: [place] [phone] Performing Lab: [place] [address] [place] [address] AUTOMATED DIFF IMMATURE GRANULOCYTE S [#/VOLUME] IN BLOOD 0.01 10*3/u L 0.00 - 0.06 04/04 Specimen Type: BLOOD No comment entered. Ordering Provider: HUDSON MUNGUIA RA Report Released Date/Time: Apr 04, 2024 10:26 AM Reporting Lab: [place] [phone] Performing Lab: [place] [id number] [place] [address] CBC/PLT LEUKOCYTES [#/VOLUME] IN BLOOD BY AUTOMATED COUNT 6.1 10*3/u L 5.0 - 10.0 04/04 Specimen Type: BLOOD No comment entered. Ordering Provider: HUDSON MUNGUIA RA Report Released Date/Time: Apr 04, 2024 10:26 AM Reporting Lab: [place] [phone] Performing Lab: [place] [id number] [place] [address] CBC/PLT ERYTHROCYTE S [#/VOLUME] IN BLOOD BY AUTOMATED COUNT 4.71 10*6/u L 4.6 - 6.2 04/04 Specimen Type: BLOOD No comment entered. Ordering Provider: HUDSON MUNGUIA RA Report Released Date/Time: Apr 04, 2024 10:26 AM Reporting Lab: [place] [phone] Performing Lab: [place] [id number] [place] [address] CBC/PLT HEMOGLOBIN [MASS/VOLUM E] IN BLOOD 15.0 g/dL 14.0 - 18.0 04/04 Specimen Type: BLOOD No comment entered. Ordering Provider: HUDSON MUNGUIA RA Report Released Date/Time: Apr 04, 2024 10:26 AM Reporting Lab: [address] [address] Performing Lab: [address] [phone] [place] [address] CBC/PLT HEMATOCRIT [VOLUME FRACTION] OF BLOOD BY AUTOMATED COUNT 43.5 42.0 - 52.0 04/04 Specimen Type: BLOOD No comment entered. Ordering Provider: HUDSON MUNGUIA RA Report Released Date/Time: Apr 04, 2024 10:26 AM Reporting Lab: [address] [address] Performing Lab: [address] [address] [facility] CBC/PLT MCV [ENTITIC VOLUME] BY AUTOMATED COUNT 92.4 fL 80.0 - 94.0 04/04 Specimen Type: BLOOD No comment entered. Ordering Provider: HUDSON MUNGUIA RA Report Released Date/Time: Apr 04, 2024 10:26 AM Reporting Lab: [address] [address] Performing Lab: [address] [address] [facility] CBC/PLT MCH [ENTITIC MASS] BY AUTOMATED COUNT 31.8 pg 27.0 - 31.0 04/04 H Specimen Type: BLOOD No comment entered. Ordering Provider: HUDSON MUNGUIA RA Report Released Date/Time: Apr 04, 2024 10:26 AM Reporting Lab: [address] [address] Performing Lab: [address] [address] [facility] CBC/PLT MCHC [MASS/VOLUM E] BY AUTOMATED COUNT 34.5 g/dL 32.0 - 36.0 04/04 Specimen Type: BLOOD No comment entered. Ordering Provider: HUDSON MUNGUIA RA Report Released Date/Time: Apr 04, 2024 10:26 AM Reporting Lab: [address] [address] Performing Lab: [address] [address] [facility] CBC/PLT PLATELETS [#/VOLUME] IN BLOOD 199 10*3/u L 150 - 450 04/04 Specimen Type: BLOOD No comment entered. Ordering Provider: HUDSON MUNGUIA RA Report Released Date/Time: Apr 04, 2024 10:26 AM Reporting Lab: [address] [address] Performing Lab: [address] [address] [facility] CBC/PLT PLATELET MEAN VOLUME [ENTITIC VOLUME] IN BLOOD 10.2 fL 9.0 - 13.1 04/04 Specimen Type: BLOOD No comment entered. Ordering Provider: HUDSON MUNGUIA RA Report Released Date/Time: Apr 04, 2024 10:26 AM Reporting Lab: [address] [address] Performing Lab: [address] CBC/PLT ERYTHROCYTE DISTRIBUTIO N WIDTH [ENTITIC VOLUME] BY AUTOMATED COUNT 12.4 11.0 - 16.0 04/04 Specimen Type: BLOOD No comment entered. Ordering Provider: HUDSON MUNGUIA RA Report Released Date/Time: Apr 04, 2024 10:26 AM Reporting Lab: [place] [phone] Performing Lab: [address] CBC/PLT NUCLEATED ERYTHROCYTE S/100 ERYTHROCYTE S IN BLOOD 0.0 0.0 - 0.0 04/04 Specimen Type: BLOOD No comment entered. Ordering Provider: HUDSON MUNGUIA RA Report Released Date/Time: Apr 04, 2024 10:26 AM Reporting Lab: [place] [phone] Performing Lab: [place] [address] [place] [address] RHEUMATOI D FACTOR RHEUMATOID FACTOR [UNITS/VOLU ME] IN SERUM OR PLASMA <8 NEGATI VE[IU] /mL <8 NEGATIVE - 8 03/27 Specimen Type: SERUM No comment entered. Ordering Provider: ECTOR TORRES Report Released Date/Time: Mar 27, 2024 11:07 AM Reporting Lab: [place] [address] Performing Lab: [address] Vital Signs Combined list of inpatient and outpatient Vital Signs from Department of Defense and Veterans Affairs, ranging from 12 months to all on record, depending upon the facility. Vital Sign Value Date Comments Source SYSTOLIC BLOOD PRESSURE 130 07/02/2024 14:51:00 [place] [facility] DIASTOLIC BLOOD PRESSURE 80 07/02/2024 14:51:00 [place] [facility] PULSE OXIMETRY 98 07/02/2024 14:51:00 [place] [facility] WEIGHT 165.4 07/02/2024 14:51:00 [place] [facility] BMI 24 kg/m2 07/02/2024 14:51:00 [place] [facility] PAIN 0 07/02/2024 14:51:00 [place] [facility] TEMPERATURE 98.2 07/02/2024 14:51:00 [place] [facility] PULSE 74 07/02/2024 14:51:00 [place] [facility] SYSTOLIC BLOOD PRESSURE 114 05/04/2024 09:07:05 [place] [facility] DIASTOLIC BLOOD PRESSURE 68 05/04/2024 09:07:05 [place] [facility] PULSE 65 05/04/2024 09:07:05 [place] [facility] SYSTOLIC BLOOD PRESSURE 181 04/04/2024 09:43:09 [place] [facility] DIASTOLIC BLOOD PRESSURE 95 04/04/2024 09:43:09 [place] [facility] PULSE OXIMETRY 97 04/04/2024 09:43:09 [place] [facility] WEIGHT 164.8 04/04/2024 09:43:09 [place] [facility] [facility] [facility] BMI 24 kg/m2 04/04/2024 09:43:09 [place] [facility] PAIN 0 04/04/2024 09:43:09 [place] [facility] HEIGHT 69 04/04/2024 09:43:09 [place] [facility] TEMPERATURE 97.2 04/04/2024 09:43:09 [place] [facility] PULSE 67 04/04/2024 09:43:09 [place] [facility] SYSTOLIC BLOOD PRESSURE 184 03/27/2024 10:38:37 [place] [facility] DIASTOLIC BLOOD PRESSURE 105 03/27/2024 10:38:37 [place] [facility] PULSE OXIMETRY 97 03/27/2024 10:38:37 [place] [facility] WEIGHT 162 03/27/2024 10:38:37 [place] [facility] BMI 24 kg/m2 03/27/2024 10:38:37 [place] [facility] HEIGHT 69 03/27/2024 10:38:37 [place] [facility] TEMPERATURE 98.2 03/27/2024 10:38:37 [place] [facility] PULSE 65 03/27/2024 10:38:37 [place] [facility] RESPIRATION 20 03/27/2024 10:38:37 [place] [facility] SYSTOLIC BLOOD PRESSURE 166 02/21/2024 09:27:36 [place] [facility] DIASTOLIC BLOOD PRESSURE 104 02/21/2024 09:27:36 [place] [facility] PULSE OXIMETRY 98 02/21/2024 09:27:36 [place] [facility] WEIGHT 160 02/21/2024 09:27:36 [place] [facility] BMI 24 kg/m2 02/21/2024 09:27:36 [place] [facility] PAIN 0 02/21/2024 09:27:36 [place] [facility] TEMPERATURE 98.3 02/21/2024 09:27:36 [place] [facility] PULSE 63 02/21/2024 09:27:36 [place] [facility] Encounters Combined list of: 1) Encounters from Department of Veterans Affairs facilities going backup to the last 18 months, not all VA inpatient encounters are included; 2) Encounters from the Department of Defense facilities going backup to 280 months. 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) OUTPATIENT [id number] ANNUAL PHYSICA L FOR TMDE ENGINEE RING HAI AGUILAR 04/06 Released w/o Limitations [place] Jennifer SLOAN [place], [place]([employer]in g [employer]) OUTPATIENT [id number] Hearing MARIBELL BOWERS S 04/15 Released w/o Limitations [place]) Jennifer SLOAN [place], ALL[place](Occ[facility]a [facility]) OUTPATIENT [id number] Annual Physica l GUILLERMO, MARGARITO A 04/15 Released w/o Limitations Jennifer [place], [place](Occu pationa l Health) Jennifer SLOAN [place], ALLIE([employer] [employer]) OUTPATIENT [id number] Annual Hearing SANDRA OCONNELL 03/25 Released w/o Limitations Jennifer SLOAN [place], [place](Hear ing Conserv ation[employer]) Amoret SLOAN [place], ALLIE(Occ[facility]a [facility]) OUTPATIENT [id number] Annual PE MIGUEL A CELESTE 03/25 Released w/o Limitations Jennifer SLOAN [place], [place](Occu pationa l Health) Amoret SLOAN [place], ALLIE([employer]in [employer]) OUTPATIENT [id number] Annual Hearing MARIBELL BOWERS S 03/10 Released w/o Limitations Jennifer SLOAN [place], [place](Hear ing Conserv ation[employer]) Amoret SLOAN [place], ALLIE(Occupa [facility]) OUTPATIENT [id number] annual physica l exam VINCIFEANYI, MARGARITO A 03/17 Released w/o Limitations Jennifer SLOAN [place], ALLIE(Occu pationa l [facility]) [facility] HEARING AID REPAIR/MOD IFYING [id number] Diagnos is: ICD-10- CM Z46.1 Encount er for fitting and adjustm ent of hearing aid SARAVANAN CABALLERO 03/24 [place] Outpatient Encounter [id number] 03/25 [place] [facility] OFFICE O/P EST MOD 30-39 MIN [id number] Diagnos is: ICD-10- CM R97.20 Elevate d prostat e specifi c antigen [PSA] MARVA MUNGUIA 03/25 [place] [facility] Outpatient Encounter [id number] 03/31 [place] [facility] Outpatient Encounter [id number] 03/31 [place] [facility] Outpatient Encounter [id number] 04/08 [place] [facility] Outpatient Encounter [id number] ERIKSD ELVIRA Ocasio 04/18 [place] [facility] EMERGENCY DEPT VISIT LOW MDM [id number] Diagnos is: ICD-10- CM M25.562 Pain in left knee PAYAL RAM 04/18 [place] Outpatient Encounter [id number] 06/20 [place] [facility] OFFICE O/P EST SF 10 MIN [id number] Diagnos is: ICD-10- CM H40.013 Open angle with borderl ine finding s, low risk, bilater al ELY GUO L 07/27 [place] [facility] HEARING AID REPAIR/MOD IFYING [id number] Diagnos is: ICD-10- CM Z46.1 Encount er for fitting and adjustm ent of hearing aid SARAVANAN CABALLERO 07/27 [place] HC PRO PHONE CALL 11-20 MIN [id number] Diagnos is: ICD-10- CM 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 Chawla 07/28 [place] [facility] OFFICE O/P EST MOD 30 MIN [id number] Diagnos is: ICD-10- CM 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, left eye, stable GILBERT,MANAS L 09/01 [place] [facility] OFFICE O/P EST MOD 30 MIN [id number] Diagnos is: ICD-10- CM 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, left eye, stable FRANCINE,SHIRLEY NITO N 09/29 [place] [facility] Outpatient Encounter [id number] 10/11 [place] [facility] OFFICE O/P EST SF 10 MIN [id number] Diagnos is: ICD-10- CM 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, left eye, stable FRANCINE,SHIRLEY NITO N 12/25 [place] [facility] EMERGENCY DEPT VISIT LOW MDM [id number] Diagnos is: ICD-10- CM S62.342 A Nondisp fx of base of third bone, right hand, init Yaz RUIZ 02/09 [place] OFFICE O/P NEW LOW 30 MIN [id number] Diagnos is: ICD-10- CM M25.531 Pain in right wrist BUFFY LABOY V 02/20 [place] Outpatient Encounter [id number] MACARIO RASCON S 02/21 [place] [facility] Outpatient Encounter [id number] 02/21 [place] Outpatient Encounter [id number] 03/07 [place] [facility] OFFICE O/P EST MOD 30 MIN [id number] Diagnos is: ICD-10- CM 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 , unspeci fied site AGUSTINA TORRES W 03/27 [place] [facility] THERAPEUTI C EXERCISES [id number] Diagnos is: ICD-10- CM M19.29 Seconda ry osteoar thritis , other specifi ed site MACARIO RASCON S 03/27 [place] [facility] OFFICE O/P EST SF 10 MIN [id number] Diagnos is: ICD-10- CM 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, left eye, stable HAIMAN,PHI LLIP K 03/30 [place] [facility] OFFICE O/P EST HI 40 MIN [id number] Diagnos is: ICD-10- CM I10 Essenti al (primar y) hyperte nsion MARVA MUNGUIA 04/04 [place] [facility] ELECTROCAR DIOGRAM TRACING [id number] Diagnos is: ICD-10- CM Z13.6 Encount er for screeni ng for cardiov ascular disorde rs SONU,ANAND IG A 04/04 [place] [facility] OFF/OP EST MAY X REQ PHY/QHP [id number] Diagnos is: ICD-10- CM Z77.29 Contact with and exposur e to other [place] substan REJI Regalado S 04/04 [place] [facility] HC PRO PHONE CALL 5-10 MIN [id number] Diagnos is: ICD-10- CM I10 Essenti al (primar y) hyperte nsion REIJ CHAUDHARI S 04/04 [place] [facility] EXT ECG>7D<15D REC SCAN A/R [id number] Diagnos is: ICD-10- CM Z13.6 Encount er for screeni ng for cardiov ascular disorde rs ANAND ASCENCIO IG A 04/09 [place] [facility] HC PRO PHONE CALL 5-10 MIN [id number] Diagnos is: ICD-10- CM Z77.29 Contact with and exposur e to other [place] us substan REJI Regalado S 04/11 [place] [facility] Outpatient Encounter [id number] MACARIO RASCON S 04/16 [place] [facility] EXT ECG>7D<15D REC SCAN A/R [id number] Diagnos is: ICD-10- CM Z13.6 Encount er for screeni ng for cardiov ascular disorde rs ANAND ASCENCIO IG A 04/20 [place] [facility] Outpatient Encounter [id number] XANDERKRISTEL DOWNSAwais LAUREN S 04/22 [place] [facility] TTE W/DOPPLER COMPLETE [id number] Diagnos is: ICD-10- CM Z13.6 Encount er for screeni ng for cardiov ascular disorde rs HEATHER MAN W 04/23 [place] [facility] HC PRO PHONE CALL 5-10 MIN [id number] Diagnos is: ICD-10- CM Z77.29 Contact with and exposur e to other [place]ardo us substan REJI Regalado S 04/26 [place] [facility] Outpatient Encounter [id number] 04/26 [place] [facility] HC PRO PHONE CALL 5-10 MIN [id number] Diagnos is: ICD-10- CM Z77.29 Contact with and exposur e to other hazardo us substan REJI Regalado S 04/26 [place] [facility] Outpatient Encounter [id number] Diagnos is: ICD-10- CM I49.3 Ventric ular prematu re depolar ization HEATHER MAN Elaine W 04/29 [place] [facility] HC PRO PHONE CALL 5-10 MIN [id number] Diagnos is: ICD-10- CM Z77.29 Contact with and exposur e to other [place] us substan REJI Regalado S 04/30 [place] [facility] HC PRO PHONE CALL 5-10 MIN [id number] Diagnos is: ICD-10- CM I10 Essenti al (primar y) hyperte nsREJI Cordero S 05/04 [place] [facility] OFF/OP EST MAY X REQ PHY/QHP [id number] Diagnos is: ICD-10- CM I10 Essenti al (primar y) hyperte nsion MARIA TERESA,NO RMA J 05/04 [place] [facility] OFFICE O/P NEW SF 15 MIN [id number] Diagnos is: ICD-10- CM H35.81 Retinal edema SUSHIL DE PAULINO,A NA 05/04 [place] [facility] Outpatient Encounter [id number] 05/11 [place] [facility] EXT ECG>7D<15D REC SCAN A/R [id number] Diagnos is: ICD-10- CM Z13.6 Encount er for screeni ng for cardiov ascular disorde ANAND Green IG A 05/21 [place] [facility] Outpatient Encounter [id number] 05/31 [place] [facility] PH1 ASSMT&MGMT NQHP 11-20 [id number] Diagnos is: ICD-10- CM 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 Chawla 05/31 [place] [facility] Outpatient Encounter [id number] 06/06 [place] [facility] ELECTROCAR DIOGRAM COMPLETE [id number] Diagnos is: ICD-10- CM Z13.6 Encount er for screeni ng for cardiov ascular disorde ANAND Green IG A 06/26 [place] [facility] OFFICE O/P NEW MOD 45 MIN [id number] Diagnos is: ICD-10- CM R00.2 Palpita tions AIKAT,SHAM IK 07/02 [facility] [place] [facility] [facility] OFFICE O/P EST SF 10 MIN [id number] Diagnos is: ICD-10- CM H35.81 Retinal edema ALFONSO LORD MINO Lopez 07/13 [facility] Procedures Combined list of: 1) Procedures from Department of Veterans Affairs facilities going back up to the [facility] 18 months, not all VA non-surgical procedures are included; 2) All procedures from the Department of Defense facilities. Procedure Procedure Type Code Date Perfomer Comments Sour e Audiogram (Screening) Audiogram (Screening) 08611 03/17/2010 MARGARITO LI [facility] Screening Test Of Visual Acuity, Quantitative, Bilateral Screening Test Of Visual Acuity, Quantitative, Bilateral 46124 03/17/2010 MARGARITO LI [facility] Visual Cary Test Extended Examination Visual Cary Test Extended Examination 44514 03/17/2010 MARGARITO LI [facility] Visual Function Screening Visual Function Screening 93094 03/17/2010 MARGARITO LI [facility] Extensive Color Vision Testing Extensive Color Vision Testing 85435 03/17/2010 MARGARITO LI [facility] Audiogram (Screening) Audiogram (Screening) 69758 04/15/2008 MARGARITO LI [facility] Screening Test Of Visual Acuity, Quantitative, Bilateral Screening Test Of Visual Acuity, Quantitative, Bilateral 78901 04/15/2008 MARGARITO LI [facility] Visual Cary Test Extended Examination Visual Cary Test Extended Examination 31219 04/15/2008 MARGARITO LI [facility] Visual Function Screening Visual Function Screening 94438 04/15/2008 MARGARITO LI [facility] Extensive Color Vision Testing Extensive Color Vision Testing 24081 04/15/2008 MARGARITO LI [facility] Tonometry Tonometry 81136 04/15/2008 REGINALD LIH Ebonie [facility] Visual Cary Test Extended Examination Visual Cary Test Extended Examination 38985 04/06/2007 HAI THOMSON [facility] Spirometry Spirometry 52583 04/06/2007 HAI THOMSON [facility] ECG Interpretation And Report Only ECG Interpretation And Report Only 77513 04/06/2007 HAI THOMSON [facility] ECG 12-Lead ECG 12-Lead 14813 04/06/2007 HAI THOMSON [facility] Visual Function Screening Visual Function Screening 74358 04/06/2007 HAI THOMSON [facility] Extensive Color Vision Testing Extensive Color Vision Testing 69010 04/06/2007 HAI THOMSON [facility] Tonometry Tonometry 03830 04/06/2007 HAI THOMSON [facility] Audiogram (Screening) Audiogram (Screening) 38024 04/06/2007 HAI THOMSON [facility] SCREENING TEST, PURE TONE, AIR ONLY 03/17/2010 [facility] SCREENING TEST, PURE TONE, AIR ONLY 04/15/2008 [facility] VISUAL FIELD EXAM,UNILAT/BI,INTER P&REP;EXT EXM(EG,GOLDMANN VIS FLD,AT LEAST 3 ISOP PLOT&STAT DET W/IN JOHN 30DEG/QUANT,AUTO THRSH VICTORIANO,OCT G-1,32/42,HUMP VIS FLD ANAL FULL THRSH 30-2,24-2, OR 30/60-2) 04/06/2007 [facility] VISUAL FIELD EXAM,UNILAT/BI,INTER P&REP;EXT EXM(EG,GOLDMANN VIS FLD,AT LEAST 3 ISOP PLOT&STAT DET W/IN JOHN 30DEG/QUANT,AUTO THRSH VICTORIANO,OCT G-1,32/42,HUMP VIS FLD ANAL FULL THRSH 30-2,24-2, OR 30/60-2) 04/04/2006 [facility] VISUAL FIELD EXAM,UNILAT/BI,INTER P&REP;EXT EXM(EG,GOLDMANN VIS FLD,AT LEAST 3 ISOP PLOT&STAT DET W/IN JOHN 30DEG/QUANT,AUTO THRSH VICTORIANO,OCT G-1,32/42,HUMP VIS FLD ANAL FULL THRSH 30-2,24-2, OR 30/60-2) 04/20/2005 [facility] SCREENING TEST, PURE TONE, AIR ONLY 03/26/2004 [facility] VISUAL FIELD EXAM,UNILAT/BI,INTER P&REP;EXT EXM(EG,GOLDMANN VIS FLD,AT LEAST 3 ISOP PLOT&STAT DET W/IN JOHN 30DEG/QUANT,AUTO THRSH VICTORIANO,OCT G-1,32/42,HUMP VIS FLD ANAL FULL THRSH 30-2,24-2, OR 30/60-2) 03/26/2004 [facility] VISUAL FIELD EXAM,UNILAT/BI,INTER P&REP;EXT EXM(EG,GOLDMANN VIS FLD,AT LEAST 3 ISOP PLOT&STAT DET W/IN JOHN 30DEG/QUANT,AUTO THRSH VICTORIANO,OCT G-1,32/42,HUMP VIS FLD ANAL FULL THRSH 30-2,24-2, OR 30/60-2) 04/10/2003 [facility] DETERMINATION OF VENOUS PRESSURE 05/09/2002 [facility] VISUAL FIELD EXAM,UNILAT/BI,INTER P&REP;EXT EXM(EG,GOLDMANN VIS FLD,AT LEAST 3 ISOP PLOT&STAT DET W/IN JOHN 30DEG/QUANT,AUTO THRSH VICTORIANO,OCT G-1,32/42,HUMP VIS FLD ANAL FULL THRSH 30-2,24-2, OR 30/60-2) 05/08/2002 [facility] VISUAL FIELD EXAM,UNILAT/BI,INTER P&REP;EXT EXM(EG,GOLDMANN VIS FLD,AT LEAST 3 ISOP PLOT&STAT DET W/IN JOHN 30DEG/QUANT,AUTO THRSH VICTORIANO,OCT G-1,32/42,HUMP VIS FLD ANAL FULL THRSH 30-2,24-2, OR 30/60-2) 04/19/2001 [facility] VISUAL FIELD EXAM,UNILAT/BI,INTER P&REP;EXT EXM(EG,GOLDMANN VIS FLD,AT LEAST 3 ISOP PLOT&STAT DET W/IN JOHN 30DEG/QUANT,AUTO THRSH VICTORIANO,OCT G-1,32/42,HUMP VIS FLD ANAL FULL THRSH 30-2,24-2, OR 30/60-2) 03/29/2000 [facility] DETERMINATION OF VENOUS PRESSURE 09/24/1999 [facility] Social History Combined list of available smoking, tobacco, and other social history from Department of Defense and Veterans Affairs facilities. Social History Type Response Date Comment [facility] e Tobacco smoking status [facility] VA-TOBACCO FORMER USER 04/04/2024 [facility] History of tobacco use VA-TOBACCO QUIT 15 YRS OR MORE 04/04/2024 [facility] History of tobacco use VA-TOBACCO FORMER USER 03/25/2023 [facility] History of tobacco use VA-TOBACCO FORMER USER 02/22/2022 [facility] History of tobacco use VA-TOBACCO QUIT 15 YRS OR MORE 03/25/2021 [facility] This section is an empty social history section. [facility]
--- NOTE | 2024-09-21 10:15 | CT_ITS ---
FINAL REPORT TECHNIQUE: multiple axial CT images were performed from the foramen magnum to the vertex without enhancement. This study was performed with techniques to keep radiation doses as low as reasonably achievable (ALARA). Individualized dose reduction techniques using automated exposure control or adjustment of mA and/or kV according to the patient's size were employed. CLINICAL HISTORY: Memory loss, history of head trauma COMPARISON: None FINDINGS: The ventricles are enlarged. There is diffuse atrophy. The ventricles are mildly enlarged out of proportion with the degree of atrophy, and communicating hydrocephalus cannot be excluded. There is periventricular white matter change likely related to small vessel disease. There is a localized focus of encephalomalacia in the posterior right temporoparietal region, that may be the result of posttraumatic change or infarct. There is no evidence of hemorrhage. No masses are identified. No extra-axial fluid is seen. The sinuses are normal. IMPRESSION: Ventricular enlargement is mildly out of proportion with the degree of atrophy, communicating hydrocephalus cannot be excluded. Localized focus of encephalomalacia in the posterior right temporoparietal region, which may be secondary to posttraumatic or ischemic etiologies. Reviewed, Interpreted and Dictated by Nura Crane MD Transcribed by Trena Vernon Authenticated and [facility]
== END 2024-09-21 23:59 | disposition home or self-care (01) ==
LOC: RAD 10:01
PROVIDERS: PCP Internal Medicine; Visit Provider Internal Medicine
DX: R41.3 Other amnesia (principal); Z87.828 Personal history of other (healed) physical injury and trauma
CPT/HCPCS: 70450

== ENCOUNTER 2024-12-04 00:16 | Emergency (ER) | payer MEDICARE, BC, SELFPAY ==
--- OUTSIDE RECORDS SUMMARY | 2024-09-26 06:41 | XMS_ITS | Encounter Summary ---
Author Name [facility] [place] [facility] [place] Address [address] [place] [address] Care Team Providers Care Script Developer Name Role Phone SABRA MUNGUIA Primary Care Provider Unavailabl e Insurance Providers: All historical and current Section Date Range: From patient's date of to the date document was created. This section includes the names of all active insurance providers for the patient. Insurance Provider Type of Coverage Plan Name Start of Policy Coverage End of Policy Coverage Group Number Member ID Insurance Provider's Telephone Number Policy Ritchie's Name Patient's Relationship to Policy Ritchie [facility] [place] MEDIC[place] SECONDARY (NO B EXC) FEP-B ASIC- MED May 23, 2021 [id number] Negra KOTHARI PATIENT MEDICARE (WNR) MEDICARE (M) PART A Mar 23, 2016 PART A [id number] Negra KOTHARI PATIENT MEDICARE (WNR) MEDICARE (M) PART B Mar 23, 2016 PART B [id number] Negra KOTHARI PATIENT MEDICARE PART D (WNR) MEDICARE (M) PART D May 23, 2023 PART D [id number] Negra KOTHARI PATIENT Selected Encounter This section includes the information on record at [place] for the Encounter. Date/Time Encounter Type Encounter Description Reason Pro vider Source September 26, 2024 10:41 AM Outpatient Encounter ADMIN PAT ACTIVTIES (MASNONCT) IHE Encounter Template Text not used by VA Encounter Notes: All associated encounter notes This section contains the clinical notes associated to the Encounter. Date/Time Encounter Note(s) Provider Source September 26, 2024 10:41 AM LETTERS: LOCAL TITLE: SPECIALTY CONTACT LETTER STANDARD TITLE: LETTERS DATE OF NOTE: SEPTEMBER 26, 2024@10:41 ENTRY DATE: SEPTEMBER 26, 2024@10:42:17 AUTHOR: KAYLA MEYER EXP COSIGNER: URGENCY: STATUS: COMPLETED [facility] [address] [place] [address] Mr. FLORES NIHARIKA KOTHARI [address] [place] [phone] SEPTEMBER 26, 2024 Dear SANDRA KOTHARI, We have been unable to contact you by telephone to schedule an appointment in our Optometry clinic. Your health and well-being are important to us. Please call us at or . Select Option #2 and then #3. We look forward to hearing from you soon. Sincerely yours, Optometry [facility] KAYLA MEYER-[facility]
[2024-12-04 00:23] VITALS: BP 172/96; PULSE 69; RESP 20; TEMP 36.6; O2SAT 97; BMI 22.4
--- NOTE | 2024-12-04 00:27 | PC.NURSE ---
Pt awake alert and oriented Skin pink warm and dry Resp full and easy Speech clear and appropriate Report given to Kate LINARES
--- NOTE | 2024-12-04 00:29 | XR_ITS ---
PROCEDURE INFORMATION: Exam: XR Chest Exam date and time: 12/04/2024 12:51 AM Age: 74 years old Clinical indication: Other: HTN TECHNIQUE: Imaging protocol: Radiologic exam of the chest. Views: 1 view. COMPARISON: CT - ABDPELWO CT abdomen pelvis wo con 10/10/2018 8:56 AM FINDINGS: Lungs: Unremarkable. No consolidation. Pleural spaces: Unremarkable. No pleural effusion. No pneumothorax. Heart/Mediastinum: Unremarkable. No cardiomegaly. Bones/joints: Unremarkable. IMPRESSION: No acute findings.
--- NOTE | 2024-12-04 00:31 | HMH.EDGENADL ---
Discharge Plan Disposition Patient Disposition: Home, Self-Care Condition: Good Prescriptions Prescriptions: No Action lisinopril-hydrochlorothiazide 10-12.5 mg tablet 1 tab PO DAILY Rx Instructions: PT TAKES 1/2 TAB DAILY Referrals Follow up/Referrals: Dorian Tolentino MD [Primary Care Provider, Medical] - See instructions Activity Restrictions/Add. Instructions Additional Instructions/Restrictions: You were evaluated in the ER and are believed to be appropriate for discharge at this time. Continue taking your home medications as directed. Call Dr. Tolentino's office in the morning and make an appointment for follow-up in the next 1 to 2 days. Return to the ER with any new, worsening, or otherwise concerning symptoms as discussed including but not limited to severe headache, stroke-like symptoms, chest pain, or decreased urination. Clinical Impressions Clinical Impression: Hypertension Print Language Print Language: Belarusian Discharge ED Provider: Clay Galaviz Adult HPI General Chief complaint: PAIN Stated complaint: High Bp Time Seen by Provider: 12/04/24 00:19 Mode of Arrival: Ambulatory Source of Information: Patient Description of Symptoms (Recalled from ER Triage Doc. by RN): HIgh blood pressure with no associated symptoms History of Present Illness HPI narrative: 74-year-old male with history of hypertension and hyperlipidemia presents to the ER for concerns of high blood pressure. Patient reports he laid down to sleep and could hear his heartbeat in his ears . He had no headache, dizziness, numbness, tingling, weakness, vision changes, ringing in the ears, chest pain, difficulty breathing, leg swelling, or changes in urination. He states he got up and took his blood pressure and it was extremely high for him. He reports he did take his medication but he took it very late tonight, probably around 10 PM which was only a couple hours prior to arrival. He states he and his doctor have been in an experimental phase with his blood pressure medications so he typically does not take a full 10 mg dose. He states tonight he did take that. He states after he takes this he has to urinate frequently. I explained to him this is likely related to the diuretic component of his pill. Patient denies any symptoms associated with his blood pressure and states he feels 100% fine stating I could go run 5 miles right now . Patient is very healthy for his age and very active. He has no other complaints or concerns and states he has a good relationship with Dr. Tolentino and can follow-up closely. Related Data Home Medications ?Medication ?Instructions ?Recorded ?Confirmed lisinopril 10 1 tab PO DAILY 09/05/24 09/05/24 mg-hydrochlorothiazide 12.5 mg tablet Allergies Allergy/AdvReac Type Severity Reaction Status Date / Time Penicillins (PENICILLINS) Allergy Unknown S-ANAPHYLAX Verified 09/05/24 11:54 IS [facility] Disclaimer: The information contained in this section may have been updated after the patient was seen, as this information can be updated by other users. Social History Smoking Status: Never smoker alcohol intake: never current occupational status: employed Travel in the last 8 weeks?: None household members: spouse housing: house current occupation: [employer] caffeine: Yes Have you lived/traveled outside [place] in past 30 days?: No Contact w/someone who lives/traveled outside [place] past 30 days?: No Exposure to someone with infectious disease in past 14 days?: No Do you have a fever (greater than 100.4 F or 38 C)?: No Have you tested positive for COVID-19?: No Exposed to someone with COVID-19 in past 14 days?: No Do you have a sore throat?: No Do you have a cough?: No Do you have any weakness?: No Do you have any diarrhea?: No Are you experiencing any unusual bleeding?: No Do you have any muscle aches/pain?: No Do you have any abdominal pain?: No Are you experiencing loss of taste or smell?: No Other Medical History Have you received the Flu Vaccine for this season: No Have you received the Pneumonia Vaccine: No ROS Obtained: Yes Systems reviewed as appropriate & no additional complaints except as documented Per HPI Physical Exam General General appearance: alert and in no apparent distress Head Head exam: atraumatic and normocephalic Eye Eye exam: Present PERRL and EOMI; Absent conjunctival injection ENT ENT exam: Present mucous membranes moist Neck Neck exam: Present normal inspection and full ROM Chest Chest inspection: Present symmetric chest wall rise; Absent tenderness Respiratory Respiratory exam: Present normal lung sounds bilaterally; Absent respiratory distress, wheezes or stridor Cardiovascular Cardiovascular exam: Present regular rate and normal rhythm Abdominal Exam Abdominal exam: Present soft; Absent distention or tenderness Extremities Exam Extremities exam: Present full ROM; Absent edema Neurological Exam Neurological exam: Present alert, oriented X3 and other (NIH 0, no neurologic deficits); Absent motor sensory deficit Psychiatric Psychiatric exam: Present normal affect and normal mood Skin Skin exam: Present warm and dry Medical Decision Making Medical Records Medical records reviewed: Yes I reviewed the patient's medical records. Screening: Per USPSTF and CDC recommendations, given the prevalence of disease in our region, it is our hospital?s policy to screen for HIV and viral Hepatitis for all patients aged 18 and over and those with ongoing risk factors. Claudio Inquiry Pt receiving controlled substance: No Vital Signs: 12/04/24 00:23 12/04/24 00:32 12/04/24 00:32 Temperature 97.9 F Temperature Source Oral Pulse Rate 61 Pulse Rate [Left Brachial] 69 Respiratory Rate 20 Blood Pressure 163/103 H Blood Pressure [Left Arm] 172/96 H Blood Pressure Mean 123 Blood Pressure Mean [Left Arm] 121 Blood Pressure Source Blood Pressure Source [Left Arm] Automatic Cuff Blood Pressure Position Blood Pressure Position [Left Arm] Sitting 02 Sat by Pulse Oximetry 97 97 Oxygen Delivery Method Room Air 12/04/24 01:05 12/04/24 01:05 12/04/24 01:27 Temperature 97.9 F Temperature Source Oral Pulse Rate 56 L 59 L Pulse Rate [Left Brachial] Respiratory Rate 14 Blood Pressure 165/98 H 165/98 H Blood Pressure [Left Arm] Blood Pressure Mean 119 Blood Pressure Mean [Left Arm] Blood Pressure Source Automatic Cuff Blood Pressure Source [Left Arm] Blood Pressure Position Sitting Blood Pressure Position [Left Arm] 02 Sat by Pulse Oximetry 98 Oxygen Delivery Method Room Air Lab Data Lab Results 12/04/24 00:35: WBC 7.5, RBC 4.45 L, Hgb 14.3, Hct 41.3 L, MCV 92.8, MCH 32.1 H, MCHC 34.6, RDW 12.5, Plt Count 228, MPV 10.6 H, Neut % (Auto) 45.0, Lymph % (Auto) 33.1, [place] % (Auto) 17.8 H, Eos % (Auto) 3.3, Baso % (Auto) 0.5, Neut # (Auto) 3.4, Lymph # (Auto) 2.5, [place] # (Auto) 1.3 H, Eos # (Auto) 0.3, Baso # (Auto) 0.0, Sodium 138, Potassium 3.9, Chloride 99, Carbon Dioxide 30, Anion Gap 12.9, BUN 13, Creatinine 0.70, Estimated Creat Clear 64, Estimated GFR 111, Est GFR ( Amer) 134, Glucose 103 H, Calcium 9.3, Total Bilirubin 0.7, AST 47, ALT 20, Alkaline Phosphatase 55, Troponin I < 0.01, Total Protein 7.9, Albumin 4.9, Globulin 3.0, Albumin/Globulin Ratio 1.6 12/04/24 00:35 12/04/24 00:35 Orders (Tests/Meds): ORDERS Category Date Time Status CXR --portable [XR chest portable] Stat Exams 12/04/24 00:29 Taken CBC w/Auto Diff [Complete Blood Count Auto Diff] Stat Lab 12/04/24 00:35 Completed CMP [Comprehensive Metabolic Panel] Stat Lab 12/04/24 00:35 Completed HIV Combo Routine Lab 12/04/24 00:27 Ordered Hepatitis C Ab Qual. W/ RFX Routine Lab 12/04/24 00:27 Ordered Trop I [Troponin I] Stat Lab 12/04/24 00:35 Completed Medical Decision Narrative: In summary, this 74-year-old male with comorbidities described in the HPI not at goal therapy presents to the emergency department today with concerns of high blood pressure without other associated symptoms. On initial evaluation patient is hypertensive but otherwise hemodynamically stable, afebrile, well-appearing with no acute abnormalities appreciated on exam, specifically no cardiopulmonary abnormality, no neurologic abnormality. Differential diagnosis includes but is not limited to asymptomatic hypertension, medication noncompliance, I considered the possibility of endorgan injury including but not limited to cardiac injury, kidney dysfunction, patient has no symptoms of neurologic injury though this was also considered. Based on these concerns, I ordered basic serum labs, ECG, chest x-ray. ECG personally interpreted demonstrates sinus bradycardia, rate 56, normal axis, normal HI and QTc, incomplete right bundle panda block, no STEMI. Patient had taken his hypertension medication prior to arrival so no medications were administered in the ER since he is asymptomatic. Labs personally reviewed demonstrate no leukocytosis or anemia, platelets normal, CMP very reassuring, BUN and creatinine normal with no evidence of kidney dysfunction, troponin undetectably low less than 0.01. Chest x-ray personally interpreted does not demonstrate any acute intrathoracic abnormality, see radiology read for final interpretation. Patient's blood pressure has spontaneously improved in the ER. It is still elevated above normal but not significantly hypertensive. He remains asymptomatic. I believe he is appropriate for discharge at this time especially since he has a good relationship with his primary care doctor. I gave him and his extensive counseling and education on hypertension including symptomatic hypertension which patient does not have at this time. Patient was given instructions on symptomatic monitoring and management, follow up instructions, and return precautions for the emergency department. Patient indicated understanding and was discharged in stable condition. Critical Care Critical Care Time Critical Care Time: No
[2024-12-04 00:32] VITALS: BP 163/103; PULSE 61; O2SAT 97
--- OUTSIDE RECORDS SUMMARY | 2024-12-04 00:32 | XMS_ITS | Continuity of Care Document ---
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 It does not include entries that were removed or entered in error. Problem Status Onset Date Problem Type Date of Resolution Comments Source History of polyp of colon Active 9 Condition Jul 10, 2021 Entered By: HUDSON MUNGUIA RA [facility] Diverticular Disease of Colon ([facility] [id number]) Active Condition [facility] Elevated PSA Active Condition [facility] Exposure to potentially hazardous chemical Active Condition [facility] Family history of diabetes mellitus [facility] History of SARS-CoV-2 Active Condition [facility] Internal hemorrhoids Active Condition [facility] Multiple renal cysts Active Condition [facility] Serology Prostate-specific Antigen (PSA) Elevated Active Condition [facility] visit for: pre-employment physical Active Condition [facility] visit: ears/hearing exam for hearing conservation, treatment Active Condition [facility] visit for: ears / hearing exam Inactive Condition [facility] NORMAL ROUTINE HISTORY AND PHYSICAL ADULT (18-65) Inactive Condition [facility] Diagnosis: ICD-10-CM H35.81 Retinal edema Active Diagnosis [facility] Diagnosis: ICD-10-CM R00.2 Palpitations Active Diagnosis [facility] Diagnosis: ICD-10-CM Z13.6 Encounter for screening for cardiovascular disorders Active Diagnosis [facility] Diagnosis: ICD-10-CM Z71.89 Other specified counseling Active Diagnosis [facility] Diagnosis: ICD-10-CM I10 Essential (primary) hypertension Active Diagnosis [facility] Diagnosis: ICD-10-CM Z77.29 Contact with and exposure to other hazardous substances Active Diagnosis [facility] Diagnosis: ICD-10-CM I49.3 Ventricular premature depolarization Active Diagnosis [facility] Diagnosis: ICD-10-CM 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, left eye, stable Active Diagnosis [facility] Diagnosis: ICD-10-CM 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, other specified site Active Diagnosis [facility] Diagnosis: ICD-10-CM M19.93 Secondary osteoarthritis, unspecified site Active Diagnosis [facility] Diagnosis: ICD-10-CM M25.531 Pain in right wrist Active Diagnosis [facility] Diagnosis: ICD-10-CM S62.342A Nondisp fx of base of third bone, right hand, init Active Diagnosis [facility] Diagnosis: ICD-10-CM Z46.1 Encounter for fitting and adjustment of hearing aid Active Diagnosis [facility] Diagnosis: ICD-10-CM H40.013 Open angle with borderline findings, low risk, bilateral Active Diagnosis [facility] Medications Combined list of outpatient medications from Department of Defense and [facility] facilities.Medications provided include 1) outpatient medications from the last 15 months, and 2) patient-reported medications. Medication Details Route Status Patient Instructions Prescription Expires Prescription Number Last Dispense Date Ordering Provider Order Date Order Qty Source DEXTRAN 70/GLYCERIN 0.2%/HYPROM ELLOSE 0.3% SOLN,OPH PUT 1 DROP IN EYE(S) TWICE A DAY FOR DRY EYES OPHTHA LMIC ACTIVE 09/30/2024 [id number] GODFREY ESCAMILLA N 2023 15 [place] [facility] NA [facility]% GEL,TOP APPLY 4 GRAM STRIP TO AFFECTED AREA EVERY 6 HOURS FOR PAIN TOPICA L ACTIVE 03/28/2025 [id number] 4 John TORRES W 2023 100 [place] HYDROCHL[facility] THIAZIDE 12.5MG/INDER NOPRIL 10MG TAB TAKE 1 TABLET BY MOUTH DAILY FOR BLOOD PRESSURE /HEART ORAL ACTIVE 05/05/2025 [id number] 4 BELLE MUNGUIA R 2023 90 [place] [facility] HYDROCHLORO THIAZIDE 12.5MG/INDER NOPRIL 10MG TAB TAKE 1 TABLET BY MOUTH DAILY FOR BLOOD PRESSURE /HEART ORAL DISCONT INUED (EDIT) 06/03/2024 [id number] 4 BELLE MUNGUIA NDRA R [address] [place] [address] [facility] METOPROLOL SUCCINATE 50MG TAB,SA TAKE ONE-HALF TABLET BY MOUTH DAILY FOR BLOOD PRESSURE ORAL ACTIVE 07/03/2025 [id number] 5 JOSÉ MIGUEL HURST LALI 2024 45 [place] ROSUVASTATI N CA 40MG TAB TAKE ONE-HALF TABLET BY MOUTH DAILY FOR CHOLESTE ROL ORAL ACTIVE 04/05/2025 [id number] 5 BELLE MUNGUIA NDRA R 2023 45 [place] [facility] Allergies, Adverse Reactions, Alerts Combined list of allergies from Department of Defense and Veterans Affairs facilities. It does not include entries that were removed or entered in error. Substance Category Reaction Severity Reaction type Status Date Reported Comments Source PENICILLIN Propensity to adverse reactions to drug (finding) Eruption active 1 [facility] OWN PENICILLINS Drug allergy (disorder) Unknown active 6 [facility] Immunizations Combined list of available immunizations from the Department of Defense and Veterans Affairs facilities. Immunization Series Date Given Administered By Site Reaction Lot Number CVX Code Drug Radiology Specialist Status Comments Source TDAP 1 2016 115 complet ed HISTORICA L INFORMATI ON - FROM OTHER REGISTRY, [place] [facility] Results Combined list of recent chemistry, hematology [...] 2024 03:22 PM Reporting Lab: [facility] [address] [address] Performing Lab: [facility] O[facility] [address] [address] [facility] PANEL 1 UREA NITROGEN [MASS/VOLUM E] IN SERUM OR PLASMA 12 mg/dL 9 - 05/04 Specimen Type: PLASMA Comment: Estimated Glomerular [...] 2024 03:22 PM Reporting Lab: [facility] O[facility] [address] [address] Performing Lab: [facility] O[facility] [address] [address] [facility] PANEL 1 GLUCOSE [MASS/VOLUM E] IN SERUM [...] 2024 03:22 PM Reporting Lab: [facility] O[facility] [address] [address] Performing Lab: [facility] [address] [address] [facility] PANEL 1 SODIUM [MOLES/VOLU ME] IN SERUM [...] 2024 03:22 PM Reporting Lab: [facility] [address] [facility] [address] Performing Lab: [facility] [address] [facility] [address] [facility] PANEL 1 POTASSIUM [MOLES/VOLU ME] IN SERUM [...] 2024 03:22 PM Reporting Lab: [facility] [address] [facility] [address] Performing Lab: CAR[facility] O[facility] [address] [facility] [address] [facility] PANEL 1 CHLORIDE [MOLES/VOLU ME] IN SERUM [...] 04, 2024 03:22 PM Reporting Lab: CARLOS [address] [address] Performing Lab: MUSASarbjit [address] [address] [facility] PANEL 1 CARBON DIOXIDE, TOTAL [MOLES/VOLU ME] [...] Apr 04, 2024 03:22 PM Reporting Lab: [address] [address] Performing Lab: [address] [address] [facility] PANEL 1 CALCIUM [MASS/VOLUM E] IN SERUM [...] 2024 03:22 PM Reporting Lab: [facility] O[facility] [address] [address] Performing Lab: CARL[facility] O[facility] [address] [address] [facility] PANEL 1 ANION GAP 3 IN SERUM [...] 2024 03:22 PM Reporting Lab: [facility] O[facility] [address] [address] Performing Lab: CARL[facility] O[facility] [address] [address] [facility] 1 GLOMERULAR FILTRATION RATE/1.73 SQ M.PREDICTED [...] 2024 03:22 PM Reporting Lab: CARL[facility] O[facility] [address] [address] Performing Lab: CARLOS [address] [address] [facility] PANEL 5 CREATININE [MASS/VOLUM E] IN SERUM [...] 2024 11:13 AM Reporting Lab: CARLOS O[facility]LEY [address] [address] Performing Lab: CARL[facility] O[facility] [address] [address] [facility] PANEL 5 UREA NITROGEN [MASS/VOLUM E] IN [...] 2024 11:13 AM Reporting Lab: CARL[facility] O[facility] [address] [address] Performing Lab: CARL[facility] O[facility] [address] [address] [facility] PANEL 5 GLUCOSE [MASS/VOLUM E] IN SERUM [...] 2024 11:13 AM Reporting Lab: CARLOS O[facility] [address] [address] Performing Lab: CARL[facility] O[facility] [address] [address] [facility] PANEL 5 SODIUM [MOLES/VOLU ME] IN SERUM [...] 2024 11:13 AM Reporting Lab: CARLOS OAK[facility] [address] [address] Performing Lab: CAR[facility] O[facility] [address] [address] [facility] PANEL 5 POTASSIUM [MOLES/VOLU ME] IN SERUM [...] 2024 11:13 AM Reporting Lab: [facility] O[facility] [address] [address] Performing Lab: CARL[facility] O[facility] [address] [address] [facility] PANEL 5 CHLORIDE [MOLES/VOLU ME] IN SERUM [...] 2024 11:13 AM Reporting Lab: CAR[facility] O[facility] [address] [facility] [address] Performing Lab: CARLOS O[facility] [address] [facility] [address] [facility] PANEL 5 CARBON DIOXIDE, TOTAL [MOLES/VOLU ME] [...] 2024 11:13 AM Reporting Lab: [facility] O[facility] [address] [facility] [address] Performing Lab: CARLOS O[place] [id number] [facility] [address] [facility] PANEL 5 CALCIUM [MASS/VOLUM E] IN SERUM [...] 2024 11:13 AM Reporting Lab: CARLOS O[facility] [address] [address] Performing Lab: CARLOS [address] [address] [facility] PANEL 5 PROTEIN [MASS/VOLUM E] IN SERUM [...] Apr 03, 2024 11:13 AM Reporting Lab: [facility] CAREDENZELSarbjit [address] [address] Performing Lab: YASMANIDENZEL-Sarbjit [address] [address] [facility] PANEL 5 ALBUMIN [MASS/VOLUM E] IN SERUM [...] 2024 11:13 AM Reporting Lab: CARL[facility] O[facility] [address] [address] Performing Lab: CAR[facility] O[facility] [address] [address] [facility] PANEL 5 BILIRUBIN.T OTAL [MASS/VOLUM E] IN [...] 2024 11:13 AM Reporting Lab: [facility] O[facility] [address] [address] Performing Lab: CARLOS [address] [address] [facility] 5 ASPARTATE AMINOTRANSF ERASE [ENZYMATIC ACTIVITY/VO LUME] [...] 2024 11:13 AM Reporting Lab: [facility] O[facility] [address] [address] Performing Lab: CARL[facility] [address] [address] [facility] PANEL 5 ALANINE AMINOTRANSF ERASE [ENZYMATIC ACTIVITY/VO [...] 2024 11:13 AM Reporting Lab: [facility] O[facility] [address] [address] Performing Lab: CARL[facility] O[facility] [address] [address] [facility] PANEL 5 ANION GAP 3 IN SERUM [...] 2024 11:13 AM Reporting Lab: CAR[facility] O[facility] [address] [address] Performing Lab: CARLOS [address] [address] [facility] PANEL 5 ALKALINE PHOSPHATASE [ENZYMATIC ACTIVITY/VO LUME] [...] 2024 11:13 AM Reporting Lab: [facility] O[facility] [address] [address] Performing Lab: CARLOS OAKLEY [address] [address] [facility] PANEL 5 GLOMERULAR FILTRATION RATE/1.73 SQ M.PREDICTED [...] 2024 11:13 AM Reporting Lab: [facility] O[facility] [address] [address] Performing Lab: CARL[facility] O[facility] [address] [address] [facility] LIPID PROFILE CHOLESTEROL [MASS/VOLUM E] IN SERUM [...] 2024 11:13 AM Reporting Lab: [facility] O[facility] [address] [address] Performing Lab: [facility] O[facility] [address] [address] [facility] LIPID PROFILE TRIGLYCERID E [MASS/VOLUM E] IN SERUM OR PLASMA 60 mg/dL 0 - 149 11/13 /2024 Specimen Type: PLASMA Comment: Estimated Glomerular Filtration [...] 2024 11:13 AM Reporting Lab: [facility] O[facility] [address] [address] Performing Lab: CARLOS OAKLEY [address] [place] [address] [facility] LIPID PROFILE CHOLESTEROL IN HDL [MASS/VOLUM E] [...] 2024 11:13 AM Reporting Lab: [facility] O[facility] [address] [facility] [address] Performing Lab: CARL[facility] O[facility]LEY [facility] [address] [facility] [address] [facility] LIPID PROFILE CHOLESTEROL IN LDL [MASS/VOLUM E] [...] 03, 2024 11:13 AM Reporting Lab: CAR[facility] [address] [address] Performing Lab: [address] [address] [facility] GLYCOHEMO GLOBIN HEMOGLOBIN A1C/HEMOGLO BIN.TOTAL IN BLOOD BY HPLC 5.4 4.4 - 6.4 04/04 Specimen Type: BLOOD Comment: [facility] guidelines for A1c interpretat ion: Glycemic control targets are based on Shared Decision Making between clinicians and patients. Criteria used to establish an A1c target recommendat ion can be found at https://www .id.gov/ignacio lityandpati entsafety/ and include the use of [...] 9.27. Ref: https://ngs p.org/CAPda ta.asp. The in-house [employer] D-100 analyzer has a historical CV <= 2%. Contact the laboratory for further performance characteris tics of this assay. Ordering Provider: HUDSON MUNGUIA RA Report Released Date/Time: Apr 03, 2024 11:13 AM Reporting Lab: [facility] [address] [address] Performing Lab: [facility] CLIN[facility]arb[facility] [address] [address] [facility] THYROID PROFILE THYROTROPIN [UNITS/VOLU ME] IN SERUM [...] 2024 11:13 AM Reporting Lab: [facility] [address] [address] Performing Lab: CARL[facility] OAK[facility] [address] [address] [facility] THYROID PROFILE FREE T4 1.06 ng/mL 0.70 [...] 2024 11:13 AM Reporting Lab: [facility] O[facility] [address] [address] Performing Lab: CARL[facility] O[facility] [address] [address] [facility] CRP (for acute inflammat ion) C REACTIVE [...] 2024 11:13 AM Reporting Lab: [facility] O[facility] [address] [facility] [address] Performing Lab: [address] [address] [facility] SED RATE (ISED) ERYTHROCYTE SEDIMENTATI ON RATE BY PHOTOMETRIC METHOD 2 mm/h 0 - 20 04/04 Specimen Type: BLOOD No comment entered. Ordering Provider: HUDSON MUNGUIA RA Report Released Date/Time: Apr 04, 2024 10:26 AM Reporting Lab: [address] [address] Performing Lab: [address] [phone] [place] [address] AUTOMATED DIFF LYMPHOCYTES /100 LEUKOCYTES IN BLOOD BY AUTOMATED COUNT 24.0 24.0 - 44.0 04/04 Specimen Type: BLOOD No comment entered. Ordering Provider: HUDSON MUNGUIA RA Report Released Date/Time: Apr 04, 2024 10:26 AM Reporting Lab: [place] [id number] Performing Lab: [place] [phone] [facility] AUTOMATED DIFF MONOCYTES/1 00 LEUKOCYTES IN BLOOD BY AUTOMATED COUNT 13.6 0.1 - 6.0 04/04 H Specimen Type: BLOOD No comment entered. Ordering Provider: HUDSON MUNGUIA RA Report Released Date/Time: Apr 04, 2024 10:26 AM Reporting Lab: [address] [address] Performing Lab: [place] [phone] [place] [address] AUTOMATED DIFF GRANULOCYTE S/100 LEUKOCYTES IN BLOOD BY AUTOMATED COUNT 58.4 42.0 - 75.0 04/04 Specimen Type: BLOOD No comment entered. Ordering Provider: HUDSON MUNGUIA RA Report Released Date/Time: Apr 04, 2024 10:26 AM Reporting Lab: [address] [address] Performing Lab: [address] [address] [facility] AUTOMATED DIFF LYMPHOCYTES [#/VOLUME] IN BLOOD BY AUTOMATED COUNT 1.47 10*3/u L 1.20 - 3.40 04/04 Specimen Type: BLOOD No comment entered. Ordering Provider: HUDSON MUNGUIA RA Report Released Date/Time: Apr 04, 2024 10:26 AM Reporting Lab: [place] [phone] Performing Lab: [place] [id number] [place] [address] AUTOMATED DIFF MONOCYTES [#/VOLUME] IN BLOOD BY AUTOMATED COUNT 0.83 10*3/u L 0.00 - 0.60 04/04 H Specimen Type: BLOOD No comment entered. Ordering Provider: HUDSON MUNGUIA RA Report Released Date/Time: Apr 04, 2024 10:26 AM Reporting Lab: [place] [phone] Performing Lab: [address] AUTOMATED DIFF GRANULOCYTE S [#/VOLUME] IN BLOOD BY AUTOMATED COUNT 3.58 10*3/u L 1.40 - 6.50 04/04 Specimen Type: BLOOD No comment entered. Ordering Provider: HUDSON MUNGUIA RA Report Released Date/Time: Apr 04, 2024 10:26 AM Reporting Lab: [place] [phone] Performing Lab: [place] [id number] AUTOMATED DIFF BASOPHILS/1 00 LEUKOCYTES IN BLOOD BY AUTOMATED COUNT 0.7 0.0 - 3.0 04/04 Specimen Type: BLOOD No comment entered. Ordering Provider: HUDSON MUNGUIA RA Report Released Date/Time: Apr 04, 2024 10:26 AM Reporting Lab: [place] [phone] Performing Lab: [place] [id number] AUTOMATED DIFF BASOPHILS [#/VOLUME] IN BLOOD BY AUTOMATED COUNT 0.04 10*3/u L 0.00 - 0.20 04/04 Specimen Type: BLOOD No comment entered. Ordering Provider: HUDSON MUNGUIA RA Report Released Date/Time: Apr 04, 2024 10:26 AM Reporting Lab: [address] [address] Performing Lab: [address] [address] [facility] AUTOMATED DIFF EOSINOPHILS /100 LEUKOCYTES IN BLOOD BY AUTOMATED COUNT 3.1 0.0 - 10.0 04/04 Specimen Type: BLOOD No comment entered. Ordering Provider: HUDSON MUNGUIA RA Report Released Date/Time: Apr 04, 2024 10:26 AM Reporting Lab: [address] [address] Performing Lab: [address] [address] [facility] AUTOMATED DIFF EOSINOPHILS [#/VOLUME] IN BLOOD BY AUTOMATED COUNT 0.19 10*3/u L 0.00 - 0.70 04/04 Specimen Type: BLOOD No comment entered. Ordering Provider: HUDSON MUNGUIA RA Report Released Date/Time: Apr 04, 2024 10:26 AM Reporting Lab: [address] [address] Performing Lab: [address] [address] [facility] AUTOMATED DIFF IMMATURE GRANULOCYTE S/100 LEUKOCYTES IN BLOOD 0.2 0.0 - 0.5 04/04 Specimen Type: BLOOD No comment entered. Ordering Provider: HUDSON MUNGUIA RA Report Released Date/Time: Apr 04, 2024 10:26 AM Reporting Lab: [address] [address] Performing Lab: [address] [address] [facility] AUTOMATED DIFF IMMATURE GRANULOCYTE S [#/VOLUME] IN BLOOD 0.01 10*3/u L 0.00 - 0.06 04/04 Specimen Type: BLOOD No comment entered. Ordering Provider: HUDSON MUNGUIA RA Report Released Date/Time: Apr 04, 2024 10:26 AM Reporting Lab: [address] [address] Performing Lab: [address] [place] [address] [facility] CBC/PLT LEUKOCYTES [#/VOLUME] IN BLOOD BY AUTOMATED COUNT 6.1 10*3/u L 5.0 - 10.0 04/04 Specimen Type: BLOOD No comment entered. Ordering Provider: HUDSON MUNGUIA RA Report Released Date/Time: Apr 04, 2024 10:26 AM Reporting Lab: [place] [phone] Performing Lab: [place] [phone] [place] [address] CBC/PLT ERYTHROCYTE S [#/VOLUME] IN BLOOD BY AUTOMATED COUNT 4.71 10*6/u L 4.6 - 6.2 04/04 Specimen Type: BLOOD No comment entered. Ordering Provider: HUDSON MUNGUIA RA Report Released Date/Time: Apr 04, 2024 10:26 AM Reporting Lab: [place] [phone] Performing Lab: [place] [phone] [place] [address] CBC/PLT HEMOGLOBIN [MASS/VOLUM E] IN BLOOD 15.0 g/dL 14.0 - 18.0 04/04 Specimen Type: BLOOD No comment entered. Ordering Provider: HDUSON MUNGUIA RA Report Released Date/Time: Apr 04, 2024 10:26 AM Reporting Lab: [address] [address] Performing Lab: [place] [phone] [place] [address] CBC/PLT HEMATOCRIT [VOLUME FRACTION] OF BLOOD BY AUTOMATED COUNT 43.5 42.0 - 52.0 04/04 Specimen Type: BLOOD No comment entered. Ordering Provider: HUDSON MUNGUIA RA Report Released Date/Time: Apr 04, 2024 10:26 AM Reporting Lab: [address] [address] Performing Lab: [address] [address] [facility] CBC/PLT MCV [ENTITIC VOLUME] BY AUTOMATED COUNT 92.4 fL 80.0 - 94.0 04/04 Specimen Type: BLOOD No comment entered. Ordering Provider: HUDSON MUNGUIA RA Report Released Date/Time: Apr 04, 2024 10:26 AM Reporting Lab: [place] [phone] Performing Lab: [address] [phone] [place] [address] CBC/PLT MCH [ENTITIC MASS] BY AUTOMATED COUNT 31.8 pg 27.0 - 31.0 04/04 H Specimen Type: BLOOD No comment entered. Ordering Provider: HUDSON MUNGUIA RA Report Released Date/Time: Apr 04, 2024 10:26 AM Reporting Lab: [place] [phone] Performing Lab: [place] [phone] [place] [address] CBC/PLT MCHC [MASS/VOLUM E] BY AUTOMATED COUNT 34.5 g/dL 32.0 - 36.0 04/04 Specimen Type: BLOOD No comment entered. Ordering Provider: HUDSON MUNGUIA RA Report Released Date/Time: Apr 04, 2024 10:26 AM Reporting Lab: [place] [phone] Performing Lab: [place] [phone] [place] [address] CBC/PLT PLATELETS [#/VOLUME] IN BLOOD 199 10*3/u L 150 - 450 04/04 Specimen Type: BLOOD No comment entered. Ordering Provider: HUDSON MUNGUIA RA Report Released Date/Time: Apr 04, 2024 10:26 AM Reporting Lab: [address] [address] Performing Lab: [place] [phone] [place] [address] CBC/PLT PLATELET MEAN VOLUME [ENTITIC VOLUME] IN BLOOD 10.2 fL 9.0 - 13.1 04/04 Specimen Type: BLOOD No comment entered. Ordering Provider: HUDSON MUNGUIA RA Report Released Date/Time: Apr 04, 2024 10:26 AM Reporting Lab: [address] [address] Performing Lab: [address] [address] [facility] CBC/PLT ERYTHROCYTE DISTRIBUTIO N WIDTH [ENTITIC VOLUME] BY AUTOMATED COUNT 12.4 11.0 - 16.0 04/04 Specimen Type: BLOOD No comment entered. Ordering Provider: HUDSON MUNGUIA RA Report Released Date/Time: Apr 04, 2024 10:26 AM Reporting Lab: [address] [address] Performing Lab: [address] [address] [facility] CBC/PLT NUCLEATED ERYTHROCYTE S/100 ERYTHROCYTE S IN BLOOD 0.0 0.0 - 0.0 04/04 Specimen Type: BLOOD No comment entered. Ordering Provider: HUDSON MUNGUIA RA Report Released Date/Time: Apr 04, 2024 10:26 AM Reporting Lab: [address] [address] Performing Lab: [address] [address] [facility] RHEUMATOI D FACTOR RHEUMATOID FACTOR [UNITS/VOLU ME] IN SERUM OR PLASMA <8 NEGATI VE[IU] /mL <8 NEGATIVE - 8 03/27 Specimen Type: SERUM No comment entered. Ordering Provider: ECTOR TORRES Report Released Date/Time: Mar 27, 2024 11:07 AM Reporting Lab: [address] [address] Performing Lab: [address] [address] [facility] Vital Signs Combined list of inpatient and outpatient Vital Signs from Department of Defense and Veterans Affairs, ranging from 12 months to all on record, depending upon the facility. Vital Sign Value Date Comments Source SYSTOLIC BLOOD PRESSURE 130 07/02/2024 14:51:00 [facility] DIASTOLIC BLOOD PRESSURE 80 07/02/2024 14:51:00 [facility] PULSE OXIMETRY 98 07/02/2024 14:51:00 [facility] WEIGHT 165.4 07/02/2024 14:51:00 [place] G[place] [facility] BMI 24 kg/m2 07/02/2024 14:51:00 [place] G[place] [facility] PAIN 0 07/02/2024 14:51:00 [place] G[place] [facility] TEMPERATURE 98.2 07/02/2024 14:51:00 [place] [facility] PULSE 74 07/02/2024 14:51:00 [place] [facility] SYSTOLIC BLOOD PRESSURE 114 05/04/2024 09:07:05 [place] [facility] DIASTOLIC BLOOD PRESSURE 68 05/04/2024 09:07:05 [place] [facility] PULSE 65 05/04/2024 09:07:05 [place] [facility] SYSTOLIC BLOOD PRESSURE 181 04/04/2024 09:43:09 [place] [facility] DIASTOLIC BLOOD PRESSURE 95 04/04/2024 09:43:09 [place] [facility] PULSE OXIMETRY 97 04/04/2024 09:43:09 L [place] [facility] WEIGHT 164.8 04/04/2024 09:43:09 [place] [facility] BMI 24 kg/m2 04/04/2024 09:43:09 [place] [facility] PAIN 0 04/04/2024 09:43:09 [place] [facility] HEIGHT 69 04/04/2024 09:43:09 [place] [facility] TEMPERATURE 97.2 04/04/2024 09:43:09 PAULINE NGTON [facility] PULSE 67 04/04/2024 09:43:09 [place] [facility] SYSTOLIC BLOOD PRESSURE 184 03/27/2024 10:38:37 [place] [facility] DIASTOLIC BLOOD PRESSURE 105 03/27/2024 10:38:37 [place] [facility] PULSE OXIMETRY 97 03/27/2024 10:38:37 [place] [facility] WEIGHT 162 03/27/2024 10:38:37 [place] [facility] BMI 24 kg/m2 03/27/2024 10:38:37 МАРИНА KLINE [facility] HEIGHT 69 03/27/2024 10:38:37 [place] GTKAYLEEN [facility] TEMPERATURE 98.2 03/27/2024 10:38:37 PAULINE JACKSON [facility] PULSE 65 03/27/2024 10:38:37 МАРИНА KLINE [facility] RESPIRATION 20 03/27/2024 10:38:37 PAULINE JACKSON [facility] SYSTOLIC BLOOD PRESSURE 166 02/21/2024 09:27:36 MUSA [facility] DIASTOLIC BLOOD PRESSURE 104 02/21/2024 09:27:36 [place] [facility] PULSE OXIMETRY 98 02/21/2024 09:27:36 L FÉLIX [facility] WEIGHT 160 02/21/2024 09:27:36 МАРИНА KLINE [facility] BMI 24 kg/m2 02/21/2024 09:27:36 [place] K[place] [facility] PAIN 0 02/21/2024 09:27:36 МАРИНА GTKAYLEEN [facility] TEMPERATURE 98.3 02/21/2024 09:27:36 PUALINE JACKSON [facility] PULSE 63 02/21/2024 09:27:36 [place] [facility] Encounters Combined list of: 1) Encounters from [...] ALLIE Snowden(Hearin g 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 ion-[employer]) OUTPATIENT [id number] HEARING CINDI IZQUIERDO 04/06 Released w/o Limitations ALLIE Snowden(Hear ing Conserv ation-B luegras s) ALLIE Snowden(Occupa tional Health) OUTPATIENT [id number] ANNUAL PHYSICA L FOR TMDE ENGINEE RING HAI AGUILAR 04/06 Released w/o Limitations ALLIE Snowden(Occu pationa l Health) Jennifer Wiggins Knox, ALLIE([employer]earin g [employer]at ion[employer]) OUTPATIENT [id number] Hearing BOWERS, MARIBELL S 04/15 Released w/o Limitations Jennifer SLOAN Loveox, ALLIE(Hear ing Conserv ation-B luegras s) Jennifer Lou, ALLIE(Occupa tional Health) OUTPATIENT [id number] Annual Physica l MARGARITO LI A 04/15 Released w/o Limitations Jennifer SLOAN Loveox, ALLIE(Occu pationa l Health) [place] SLOAN Lou, ALLIE([employer]earin g [employer]at ion[employer]) OUTPATIENT [id number] Annual Hearing SANDRA OCONNELL E 03/25 Released w/o Limitations Jennifer SLOAN Luo, ALLIE(Hear ing Conserv ation-B luegras s) [place] SLOAN Lou, ALLIE([facility]) OUTPATIENT [id number] Annual PE MIGUEL A CELESTE 03/25 Released w/o Limitations [place] SLOAN Lou, ALLIE(Occu pationa l Health) [place] SLOAN Lou, ALLIE(Hearin g Conservat ion[employer]) OUTPATIENT [id number] Annual Hearing BOWERS, MARIBELL S 03/10 Released w/o Limitations [place] ALLIE Barbosa(Hear ing Conserv ation-B luegras s) [place] SLOAN Lou, ALLIE([facility]) OUTPATIENT [id number] annual physica l delphine LI, MARGARITO A 03/17 Released w/o Limitations [place] ALLIE Barbosa(Occu pationa l Health) [facility] Outpatient Encounter [id number] 06/20 [place] OFF[facility] O/P EST SF 10 MIN [id number] Diagnos is: ICD-10- CM H40.013 Open angle with borderl ine finding s, low risk, bilater al GUO, CHANYNE L 07/27 [place] [facility] HEARING AID REPAIR/MOD IFYING [id number] Diagnos is: ICD-10- CM Z46.1 Encount er for fitting and adjustm ent of hearing aid SARAVANAN CABALLERO 07/27 [place] HC PRO PHONE CALL 11-20 MIN [id number] Diagnos is: ICD-10- CM Z71.89 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 program 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 Chawla 07/28 [place] [facility] OFFICE O/P EST MOD 30 MIN [id number] [id number] Diagnos is: ICD-10- CM 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, left eye, stable MANAS HUNT L 09/01 [place] [facility] OFFICE O/P EST MOD 30 MIN [id number] Diagnos is: ICD-10- CM 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, left eye, stable FRANCINE,SHIRLEY NITO N 09/29 [place] [facility] Outpatient Encounter [id number] 10/11 [place] [facility] OFFICE O/P EST SF 10 MIN [id number] Diagnos is: ICD-10- CM 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, left eye, stable FRANCINE,SHIRLEY NITO N 12/25 [place] [facility] EMERGENCY DEPT VISIT LOW MDM 39352-2.59 [id number] Diagnos is: ICD-10- CM S62.342 A Nondisp fx of base of third bone, right hand, inYaz Johnson 02/09 [place] OFFICE O/P NEW LOW 30 MIN 30799-5.59 [id number] Diagnos is: ICD-10- CM M25.531 Pain in right wrist BUFFY LABOY V 02/20 [place] Outpatient Encounter [id number] MACARIO RASCON S 02/21 [place] [facility] Outpatient Encounter [id number] 02/21 [place] Outpatient Encounter [id number] 03/07 [place] OFFICE O/P EST MOD 30 MIN 30549-2.59 [id number] Diagnos is: ICD-10- CM 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 , unspeci fied site AGUSTINA TORRES W 03/27 [place] THERAPEUTI C EXERCISES [id number] [id number] Diagnos is: ICD-10- CM M19.29 Seconda ry osteoar thritis , other specifi ed site MACARIO RASCON S 03/27 [place] O/P EST SF 10 MIN [id number] Diagnos is: ICD-10- CM 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, left eye, stable HAIMAN,PHI LLIP K 03/30 [place] [facility] O/P EST HI 40 MIN [id number] [id number] Diagnos is: ICD-10- CM I10 Essenti al (primar y) hyperte MARVA Adams 04/04 [place] [facility] ELECTROCAR DIOGRAM TRACING 69706-2.59 [id number] Diagnos is: ICD-10- CM Z13.6 Encount er for screeni ng for cardiov ascular disorde rs ANAND ASCENCIO IG A 04/04 [place] OFF/OP EST MAY X REQ PHY/QHP [id number] [id number] Diagnos is: ICD-10- CM Z77.29 Contact with and exposur e to other evertono substan REJI Reaglado S 04/04 [place] [facility] HC PRO PHONE CALL 5-10 MIN [id number] [id number] Diagnos is: ICD-10- CM I10 Essenti al (primar y) hyperte nsREJI Cordero S 04/04 [place] [facility] EXT ECG>7D<15D REC SCAN A/R [id number] Diagnos is: ICD-10- CM Z13.6 Encount er for screeni ng for cardiov ascular disorde ANAND Green IG A 04/09 [place] HC PRO PHONE CALL 5-10 MIN [id number] Diagnos is: ICD-10- CM Z77.29 Contact with and exposur e to other hazardo us substan REJI Regalado S 04/11 [place] [facility] Outpatient Encounter [id number] MACARIO RASCON S 04/16 [place] [facility] EXT ECG>7D<15D REC SCAN A/R [id number] Diagnos is: ICD-10- CM Z13.6 Encount er for screeni ng for cardiov ascular disorde ANAND Green IG A 04/20 [place] Outpatient Encounter [id number] MOSHE GUZMÁN S 12/01 /2024 [place] TTE W/DOPPLER COMPLETE 02378-6.59 [id number] Diagnos is: ICD-10- CM Z13.6 Encount er for screeni ng for cardiov ascular disorde rs HEATHER MAN W 04/23 [place] HC PRO PHONE CALL 5-10 MIN [id number] [id number] Diagnos is: ICD-10- CM Z77.29 Contact with and exposur e to other hazardo us substan REJI Regalado S 04/26 [place] [facility] Outpatient Encounter [id number] 04/26 [place] [facility] HC PRO PHONE CALL 5-10 MIN [id number] [id number] Diagnos is: ICD-10- CM Z77.29 Contact with and exposur e to other hazardo us substan REJI Regalado S 04/26 [place] [facility] Outpatient Encounter [id number] Diagnos is: ICD-10- CM I49.3 Ventric ular prematu re depolar ization HEATHER MAN E W 04/29 [place] HC PRO PHONE CALL 5-10 MIN [id number] Diagnos is: ICD-10- CM Z77.29 Contact with and exposur e to other hazardo us substan REJI Regalado S 04/30 [place] [facility] HC PRO PHONE CALL 5-10 MIN [id number] [id number] Diagnos is: ICD-10- CM I10 Essenti al (primar y) hyperte nsion REJI CHAUDHARI S 05/04 [place] [facility] OFF/OP EST MAY X REQ PHY/QHP [id number] Diagnos is: ICD-10- CM I10 Essenti al (primar y) hyperte nsvalentine MOREL,NO RMA J 05/04 [place] [facility] OFFICE O/P NEW SF 15 MIN 64695-4.59 [id number] Diagnos is: ICD-10- CM H35.81 Retinal edema SUSHIL DE PAULINO,A NA 05/04 [place] Outpatient Encounter [id number] 05/11 [place] [facility] EXT ECG>7D<15D REC SCAN A/R [id number] Diagnos is: ICD-10- CM Z13.6 Encount er for screeni ng for cardiov ascular disorde ANAND Green IG A 05/21 [place] Outpatient Encounter [id number] 05/31 [place] [facility] PH1 ASSMT&MGMT NQHP 11-20 [id number] [id number] Diagnos is: ICD-10- CM Z71.89 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 program counselor Chawla 05/31 [place] [facility] Outpatient Encounter [id number] 06/06 [place] ELECTROCAR DIOGRAM COMPLETE [id number] [id number] Diagnos is: ICD-10- CM Z13.6 Encount er for screeni ng for cardiov ascular disorde ANAND Green IG A 06/26 [place] OFFICE O/P NEW MOD 45 MIN 84797-4.59 [id number] Diagnos is: ICD-10- CM R00.2 Palpita tions FORD HURST IK 07/02 [facility] OFFICE O/P EST SF 10 MIN 81987-6.59 [id number] Diagnos is: ICD-10- CM H35.81 Retinal edema ALFONSO LORD B 07/13 [facility] Outpatient Encounter [id number] 09/26 [facility] Procedures Combined list of: 1) Procedures from Department of Veterans Affairs facilities going back up to thelast 18 months, not all [place] non-surgical procedures are included; 2) All procedures from the Department of Defense facilities. Procedure Procedure Type Code Date Perfomer Comments [facility] SCREENING TEST, PURE TONE, AIR ONLY 03/17/2010 DoD SCREENING TEST, PURE TONE, AIR ONLY 04/15/2008 [...] ANAL FULL THRSH 30-2,24-2, OR 30/60-2) 04/20/2005 DoD SCREENING TEST, PURE TONE, AIR ONLY 03/26/2004 DoD VISUAL FIELD EXAM,UNILAT/BI,INTER P&REP;EXT EXM(EG,GOLDMANN VIS FLD,AT LEAST 3 ISOP PLOT&STAT DET W/IN JOHN 30DEG/QUANT,AUTO THRSH VICTORIANO,OCT G-1,32/42,HUMP VIS FLD ANAL FULL THRSH 30-2,24-2, OR 30/60-2) 03/26/2004 DoD VISUAL FIELD EXAM,UNILAT/BI,INTER P&REP;EXT EXM(EG,GOLDMANN VIS FLD,AT LEAST 3 ISOP PLOT&STAT DET W/IN JOHN 30DEG/QUANT,AUTO THRSH VICTORIANO,OCT G-1,32/42,HUMP VIS FLD ANAL FULL THRSH 30-2,24-2, OR 30/60-2) 04/10/2003 DoD DETERMINATION OF VENOUS PRESSURE 05/09/2002 DoD VISUAL FIELD EXAM,UNILAT/BI,INTER P&REP;EXT EXM(EG,GOLDMANN VIS [...] ANAL FULL THRSH 30-2,24-2, OR 30/60-2) 03/29/2000 DoD DETERMINATION OF VENOUS PRESSURE 09/24/1999 DoD Audiogram (Screening) Audiogram (Screening) 97417 03/17/2010 MARGARITO LI DoD Screening Test Of Visual Acuity, Quantitative, Bilateral Screening Test Of Visual Acuity, Quantitative, Bilateral 00372 03/17/2010 [place] LI Visual Cary Test Extended Examination Visual Cary Test Extended Examination 56400 03/17/2010 [place] LI Visual Function Screening Visual Function Screening 31878 03/17/2010 [place] LI Extensive Color Vision Testing Extensive Color Vision Testing 74030 03/17/2010 [place] LI Audiogram (Screening) Audiogram (Screening) 97156 04/15/2008 MARG[place] LI Screening Test Of Visual Acuity, Quantitative, Bilateral Screening Test Of Visual Acuity, Quantitative, Bilateral 47849 04/15/2008 MARG[place]O LI Visual Cary Test Extended Examination Visual Cary Test Extended Examination 64836 04/15/2008 [place] LI Visual Function Screening Visual Function Screening 10906 04/15/2008 [place] LI Extensive Color Vision Testing Extensive Color Vision Testing 91935 04/15/2008 [place] LI Tonometry Tonometry 45115 04/15/2008 [place] LI Visual Cary Test Extended Examination Visual Cary Test Extended Examination 83613 04/06/2007 [facility] Spirometry Spirometry 53661 04/06/2007 [facility] ECG Interpretation And Report Only ECG Interpretation And Report Only [id number] 04/06/2007 [facility] ECG 12-Lead ECG 12-Lead 81065 04/06/2007 [facility] Visual Function Screening Visual Function Screening 42995 04/06/2007 [facility] Extensive Color Vision Testing Extensive Color Vision Testing 84051 04/06/2007 [facility] Tonometry Tonometry 55609 04/06/2007 [facility] Audiogram (Screening) Audiogram (Screening) 44028 04/06/2007 [facility] Social History Combined list of available smoking, tobacco, and other social history from Department of Defense and Veterans Affairs facilities. Social History Type Response Date Comment [facility] Tobacco smoking status [facility] FORMER USER 04/04/2024 [facility] History of tobacco use [place]-TOBACCO QUIT 15 YRS OR MORE 04/04/2024 [facility] History of tobacco use [place]-TOBACCO FORMER USER 03/25/2023 [facility] History of tobacco use [place]-TOBACCO FORMER USER 02/22/2022 [facility] of [facility]2021 [facility] This section is an empty social history section. DoD
--- OUTSIDE RECORDS SUMMARY | 2024-12-04 00:33 | XMS_ITS | Continuity of Care Document ---
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 Plan of Treatment Reminders Order Date Submit Date Provider Last Modified By Organization Details Last Modified Time Details Appointments RECHECK 2024 09:45A M ISAIAH PEREZ MD Not available Not available Not available Lab urinalysi s panel, auto [address] [facility], [address], [place], [address], 10/05/2024 10:10:37 PSA, serum or plasma 2024 [address] [facility], [address], [place], [address], 10/05/2024 10:10:38 Referral None recorded. Procedures None recorded. Surgeries None recorded. Imaging None recorded. Medication Orders None recorded. Patient TargetsNo targets recorded. Patient InstructionsNo instructions recorded. Reason for Referral None Reported. Results Created Date Observation Date Name Description Value Unit Range Abnormal Flag Note LastModifiedBy Organization Detail LastModifiedTime 10/06/1910/05/2024 PSA, serum or plasm a PSA 11.6 NG/mL 0.0 - 4.0 Not Available [facility] [address], [place], [address], 10/05/2024 09:43:27 10/06/19 25 10/05/2024 urina lysis panel , auto Unknown Analyte Clean Catch Not Available [facility] [address], [place], [address], 10/05/2024 09:08:30 10/06/19 25 10/05/2024 urina lysis panel , auto Unknown Analyte Yellow Not Available [facility] [address], [place], [address], 10/05/2024 09:08:30 10/06/19 25 10/05/2024 urina lysis panel , auto Unknown Analyte Clear Not Available [facility] [address] [place] [address] [address], [place], [address], 10/05/2024 09:08:30 10/06/19 25 10/05/2024 urina lysis panel , auto Unknown Analyte 1.010 Not Available [facility] [address], [place], [address], 10/05/2024 09:08:30 10/06/19 25 10/05/2024 urina lysis panel , auto Unknown Analyte 1.003 - 1.030 Not Available [facility] [address], [place], [address], 10/05/2024 09:08:30 10/06/19 25 10/05/2024 urina lysis panel , auto Unknown Analyte 7.0 Not Available [facility] [address], [place], [address], 10/05/2024 09:08:30 10/06/19 25 10/05/2024 urina lysis panel , auto Unknown Analyte 5.0 - 8.0 Not Available [facility] [address], [place], [address], 10/05/2024 09:08:30 10/06/19 25 10/05/2024 urina lysis panel , auto Unknown Analyte Negati ve Not Available [facility] [address], [place], [address], 10/05/2024 09:08:30 10/06/19 25 10/05/2024 urina lysis panel , auto Unknown Analyte Negati ve Not Available [facility] [address], [place], [address], 10/05/2024 09:08:30 10/06/19 25 10/05/2024 urina lysis panel , auto Unknown Analyte Negati ve Not Available [facility] [address], [place], [address], 10/05/2024 09:08:30 10/06/19 25 10/05/2024 urina lysis panel , auto Unknown Analyte Negati ve Not Available [facility] [address], [place], [address], 10/05/2024 09:08:30 10/06/19 25 10/05/2024 urina lysis panel , auto Unknown Analyte Negati ve Not Available [facility] [address], [place], [address], 10/05/2024 09:08:30 10/06/19 25 10/05/2024 urina lysis panel , auto Unknown Analyte Negati ve Not Available [facility] [address], [place], [address], 10/05/2024 09:08:30 10/06/19 25 10/05/2024 urina lysis panel , auto Unknown Analyte Normal Not Available [facility] [address], [place], [address], 10/05/2024 09:08:30 10/06/19 25 10/05/2024 urina lysis panel , auto Unknown Analyte Normal Not Available [facility] [address], [place], [address], 10/05/2024 09:08:30 10/06/19 25 10/05/2024 urina lysis panel , auto Unknown Analyte Negati ve Not Available [facility] [address], [place], [address], 10/05/2024 09:08:30 10/06/19 25 10/05/2024 urina lysis panel , auto Unknown Analyte Negati ve Not Available [facility] [address], [place], [address], 10/05/2024 09:08:30 10/06/19 25 10/05/2024 urina lysis panel , auto Unknown Analyte Normal Not Available [facility] [address], [place], [address], 10/05/2024 09:08:30 10/06/19 25 10/05/2024 urina lysis panel , auto Unknown Analyte Normal Not Available [facility] [address], [place], [address], 10/05/2024 09:08:30 10/06/19 25 10/05/2024 urina lysis panel , auto Unknown Analyte Negati ve Not Available [facility] [address], [place], [address], 10/05/2024 09:08:30 10/06/19 25 10/05/2024 urina lysis panel , auto Unknown Analyte Negati ve Not Available [facility] [address] [place] [address] [address], [place], [address], 10/05/2024 09:08:30 10/06/19 25 10/05/2024 urina lysis panel , auto Unknown Analyte 50 Ian/uL Not Available [facility] [address], [place], [address], 10/05/2024 09:08:30 10/06/1910/05/2024 urina lysis panel , auto Unknown Analyte Negati ve Not Available [facility] [address] [place] [address] [address] [place], [address], 10/05/2024 09:08:30 Result Notes None recorded. 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 Procedures Surgical History Date Name Laterality Status Provider Name and Address Organization Details Recorded Time 7 Hernia Repair completed Katie Bella [facility] 04/08/2017 14:15:26 Prostate biopsy, any mthd completed Ivette Reynoso [facility] 08/06/2016 14:18:54 Imaging Results None recorded. Procedure Notes None recorded. Medical Equipment None Reported. Allergies Allergen ID Allergen Name Allergen Category Reaction Reaction Severity Criticality Documentation Date Start Date Code Code System Note Provider Name and Address Organization Details Recorded Time 388832 Product containin g penicilli n (product) medicatio n Not available Not available Not available 04/16/20162012 54756 8001 SNOMED Comme nt: Creat ed By: Adolfo Pierce eated Date: 05/04 11:15 :40 AM; Not Available [facility] 6 03:48:07 Medications Name Sig Start Date Stop Date Status Note LastModified by Organization Details LastModified Time doxycycline monohydrate 100 mg capsule Take 1 capsule twice a day by oral route. 10/04 completed Not Available Not Available Not Available nabumetone 500 mg tablet Take 1 tablet twice a day by oral route. 04/06 completed Not Available Not Available Not Available lisinopril active Not Available Not Av ailable Not Available Vitals Date Recorded Body height Body mass index (BMI) Body weight Provider Name and Address Organization Details Last Updated DateTime 10/05/2024 177.8 cm 22 kg/m2 43899.63 g Kurtis [place] [facility] 10/05/2024 09:23:38 Social History Question Answer Notes LastModified by Organizat ion Details LastModified Time Tobacco Smoking Status Former Smoker Ivette Reynoso [facility] 08/06/2016 14:18:30 How Much Tobacco Do You Chew? None [email or web address] Information not available 10/18/2018 Marital Status Informat ion not available 08/06/2016 What Was The Date Of Your Most Recent Tobacco Screening? 10/05/2024 [email or web address] Information not available 10/05/2024 Has Tobacco Cessation Counseling Been Provided? No [email or web address] Information not available 07/20/2021 Have You Recently Traveled Abroad? No [email or web address] Information not available 07/20/2021 Sex: Male Functional Status Question Answer Note LastModified by Organizat ion Details LastModified Time Do you use any illicit or recreational drugs? No [email or web address] Information not available 07/20/2021 Do you or have you ever used any other forms of tobacco or nicotine? No [email or web address] Information not available 07/20/2021 What is your level of alcohol consumption? Occasional Information not available 08/06/2016 Mental Status None recorded. Family History Relationship Description Onset Age of this Age Resolved Age Notes LastModified by Organization Details LastModified Time Unspecified Relation Diabetes mellitus rich Not available 14:18:17 Unspecified Relation Family history of malignant neoplasm rich Not available 14:18:23 Medical History Condition Response Gout N Kidney Stones N Heart Arrhythmia N Erectile Dysfunction N Emphysema N Depression N Pneumonia N Cancer Prostate [...] N Chemotherapy N Anemia N Heart Attack ([place]) N Mental Illness N Diabetes N Seizures/Epilepsy N Congestive Heart Failure (CHF) N Sleep Apnea N Heart Disease Y Bronchitis N Hypertension N Past Encounters Encounter ID Performer Location Encounter Start Date Encounter Closed Date Diagnosis/Indication Diagnosis SNOMED-CT Code Diagnosis ICD10 Code Diagnosis Note [id number] ISAIAH PEREZ MD [facility] [address] [place] [address] 10/05/2024 09:01:03 10/05/2024 10:11:02 Prostate specific antigen above reference range 839518134 R97.20 6 month with PSA Health Concerns Section Related Observation LastModified by Organization Detai ls LastModified Time None Recorded Concern Status LastModified by Organization Details LastModified Time None Recorded Payers Encounter Date Sequence Insurance Name Policy Number Policy Ritchie Covered Member ID Ritchie Member ID Guarantor Name 10/05/2024 1 [place] Timothy Peterson [id number] Timothy Peterson 10/05/2024 2 [place] [employer] [place] [employer] 111 Timothy Peterson [id number] Timothy Peterson Notes Date Note Type Note Provider Name and Address Organization Details Recorded Time 10/05/2024 text/html Patient is here to follow-up 6 months regarding chronically elevated and fluctuating PSA. PSA at last visit April 03 0.1. Has had several negative biopsies of the prostate. PSA today is 11.6. No change of urination. Related episode neurologically after a long airplane flight from [place] where he had some memory loss and it was felt that he probably had a light stroke during his flight at some point. He seems to be doing well from that standpoint and is resumed running and actually feels much better. I suggest we continue to follow his PSA. ISAIAH PEREZ MD [address] [place], [address], [facility] 10/05/2024 10:11:31
--- OUTSIDE RECORDS SUMMARY | 2024-12-04 00:34 | XMS_ITS | Data Portability ---
Author Organization [facility]A [facility] [place] [facility] Address [address] [place] [address] Care Team Providers Care Ccnp Name Role Phone TRUNG TOLENTINO Primary Care Provider [phone] Assessment No assessment recorded. Plan of Treatment Reminders Order Date Submit Date Provider Last Modified By Organization Details Last Modified Time Details Appointments RECHECK 2024 09:45A M ISAIAH PEREZ MD Not available Not available Not available Lab urinalysi s panel, auto 2024 025 [email or web address] [facility], [address], [address], [place], [address], 10/05/2024 10:10:37 PSA, serum or plasma 2024 025 [email or web address] [facility], [address], [address], [place], [address], 10/05/2024 10:10:38 urinalysi s panel, auto 2023 024 [email or web address] [facility], [address], [address], [place], [address], 04/08/2024 15:21:19 PSA, serum or plasma 2023 024 [email or web address] [facility], [address], [address], [place], [address], 04/08/2024 15:21:19 urinalysi s panel, auto [address] [facility], [address], [address], [place], [address], 10/06/2023 23:45:46 PSA, serum or plasma [address] [facility], [address], [address], [place], [address], 10/06/2023 23:45:47 PSA, serum or plasma [address] [facility], [address], [address], [place], [address], 10/01/2022 11:37:02 urinalysi s panel, auto [address] [facility], [address], [address], [place], [address], 08/20/2022 22:17:15 PSA, serum or plasma [address] [facility], [address], [address], [place], [address], 08/20/2022 22:17:15 Referral None recorded. Procedures None recorded. Surgeries None recorded. Imaging None recorded. Medication Orders nabumeton e 500 mg tablet [address] [place] [address] Pharmacy 591, [address], [address], 04/06/2024 09:23:41 doxycycli ne monohydra te 100 mg capsule 2022 023 [facility], [address] [place], [address], 10/05/2023 14:23:40 Patient TargetsNo targets recorded. Patient Instructions Encounter Date Encounter Id Patient Instructions Last Modified By Organization Details Last Modified Time 08/20/2022 [id number] learning about healthy weight [email or web address] Not available 08/20/2022 13:38:34 Reason for Referral None Reported. Results Created Date Observation Date Name Description Value Unit Range Abnormal Flag Note LastModifiedBy Organization Detail LastModifiedTime 08/21/1908/20/2022 PSA, serum or plasm a PSA 20.5 NG/mL 0.0 - 4.0 Not Available [facility] [address], [place], [address], 08/20/2022 13:05:31 08/21/19 23 08/20/2022 urina lysis panel , auto Unknown Analyte Clean Catch Not Available [facility] [address], [place], [address], 08/20/2022 13:04:36 08/21/19 23 08/20/2022 urina lysis panel , auto Unknown Analyte Yellow Not Available [facility] [address], [place], [address], 08/20/2022 13:04:36 08/21/19 23 08/20/2022 urina lysis panel , auto Unknown Analyte Clear Not Available [facility] [address], [place], [address], 08/20/2022 13:04:36 08/21/19 23 08/20/2022 urina lysis panel , auto Unknown Analyte 1.015 Not Available [facility] [address], [place], [address], 08/20/2022 13:04:36 08/21/19 23 08/20/2022 urina lysis panel , auto Unknown Analyte 1.003- 1.035 Not Available [facility] [address], [place], [address], 08/20/2022 13:04:36 08/21/19 23 08/20/2022 urina lysis panel , auto Unknown Analyte 6.0 Not Available [facility] [address], [place], [address], 08/20/2022 13:04:36 08/21/19 23 08/20/2022 urina lysis panel , auto Unknown Analyte 5.0-8. 0 Not Available [facility] [address], [place], [address], 08/20/2022 13:04:36 08/21/19 23 08/20/2022 urina lysis panel , auto Unknown Analyte 25 Veronique/ul Trace Not Available [facility] [address], [place], [address], 08/20/2022 13:04:36 08/21/19 23 08/20/2022 urina lysis panel , auto Unknown Analyte Negati ve Not Available [facility] [address], [place], [address], 08/20/2022 13:04:36 03/31/20 23 08/20/2022 urina lysis panel , auto Unknown Analyte Negati ve Not Available [facility] [address], [place], [address], 08/20/2022 13:04:36 08/21/19 23 08/20/2022 urina lysis panel , auto Unknown Analyte Negati ve Not Available [facility] [address], [place], [address], 08/20/2022 13:04:36 08/21/19 23 08/20/2022 urina lysis panel , auto Unknown Analyte Trace Not Available [facility] [address], [place], [address], 08/20/2022 13:04:36 08/21/19 23 08/20/2022 urina lysis panel , auto Unknown Analyte Negati ve Not Available [facility] [address], [place], [address], 08/20/2022 13:04:36 08/21/19 23 08/20/2022 urina lysis panel , auto Unknown Analyte Normal Not Available [facility] [address], [place], [address], 08/20/2022 13:04:36 08/21/19 23 08/20/2022 urina lysis panel , auto Unknown Analyte Normal Not Available [facility] [address], [place], [address], 08/20/2022 13:04:36 08/21/19 23 08/20/2022 urina lysis panel , auto Unknown Analyte Negati ve Not Available [facility] [address], [place], [address], 08/20/2022 13:04:36 08/21/19 23 08/20/2022 urina lysis panel , auto Unknown Analyte Negati ve Not Available [facility] [address], [place], [address], 08/20/2022 13:04:36 08/21/19 23 08/20/2022 urina lysis panel , auto Unknown Analyte Normal Not Available [facility] [address], [place], [address], 08/20/2022 13:04:36 08/21/19 23 08/20/2022 urina lysis panel , auto Unknown Analyte Normal 1 mg/dl Not Available [facility] [address], [place], [address], 08/20/2022 13:04:36 08/21/19 23 08/20/2022 urina lysis panel , auto Unknown Analyte Negati ve Not Available [facility] [address], [place], [address], 08/20/2022 13:04:36 08/21/19 23 08/20/2022 urina lysis panel , auto Unknown Analyte Negati ve Not Available [facility] [address], [place], [address], 08/20/2022 13:04:36 08/21/19 23 08/20/2022 urina lysis panel , auto Unknown Analyte 50 Ian/ul Not Available [facility] [address], [place], [address], 08/20/2022 13:04:36 08/21/19 23 08/20/2022 urina lysis panel , auto Unknown Analyte Negati ve Not Available [facility] [address], [place], [address], 08/20/2022 13:04:36 10/02/19 23 10/01/2022 PSA, serum or plasm a PSA 13.5 NG/mL 0.0 - 4.0 Not Available [facility] [address], [place], [address], 10/01/2022 11:02:28 10/05/19 24 10/05/2023 PSA, serum or plasm a PSA 13.8 NG/mL 0.0 - 4.0 Not Available [facility] [address], [place], [address], 10/05/2023 14:42:07 10/05/19 24 10/05/2023 urina lysis panel , auto Unknown Analyte Clean Catch Not Available [facility] [address], [place], [address], 10/05/2023 14:24:29 10/05/19 24 10/05/2023 urina lysis panel , auto Unknown Analyte Yellow Not Available [facility] [address], [place], [address], 10/05/2023 14:24:29 10/05/19 24 10/05/2023 urina lysis panel , auto Unknown Analyte Clear Not Available [facility] [address], [place], [address], 10/05/2023 14:24:29 10/05/19 24 10/05/2023 urina lysis panel , auto Unknown Analyte 1.015 Not Available [facility] [address], [place], [address], 10/05/2023 14:24:29 10/05/19 24 10/05/2023 urina lysis panel , auto Unknown Analyte 1.003- 1.035 Not Available [facility] [address], [place], [address], 10/05/2023 14:24:29 10/05/19 24 10/05/2023 urina lysis panel , auto Unknown Analyte 5.0 Not Available [facility] [address], [place], [address], 10/05/2023 14:24:29 10/05/19 24 10/05/2023 urina lysis panel , auto Unknown Analyte 5.0-8. 0 Not Available [facility] [address], [place], [address], 10/05/2023 14:24:29 10/05/19 24 10/05/2023 urina lysis panel , auto Unknown Analyte Negati ve Not Available [facility] [address], [place], [address], 10/05/2023 14:24:29 10/05/19 24 10/05/2023 urina lysis panel , auto Unknown Analyte Negati ve Not Available [facility] [address], [place], [address], 10/05/2023 14:24:29 10/05/19 24 10/05/2023 urina lysis panel , auto Unknown Analyte Negati ve Not Available [facility] [address], [place], [address], 10/05/2023 14:24:29 10/05/19 24 10/05/2023 urina lysis panel , auto Unknown Analyte Negati ve Not Available [facility] [address], [place], [address], 10/05/2023 14:24:29 10/05/19 24 10/05/2023 urina lysis panel , auto Unknown Analyte Negati ve Not Available [facility] [address], [place], [address], 10/05/2023 14:24:29 10/05/19 24 10/05/2023 urina lysis panel , auto Unknown Analyte Negati ve Not Available [facility] [address], [place], [address], 10/05/2023 14:24:29 10/05/19 24 10/05/2023 urina lysis panel , auto Unknown Analyte Normal Not Available [facility] [address], [place], [address], 10/05/2023 14:24:29 10/05/19 24 10/05/2023 urina lysis panel , auto Unknown Analyte Normal Not Available [facility] [address], [place], [address], 10/05/2023 14:24:29 10/05/19 24 10/05/2023 urina lysis panel , auto Unknown Analyte 15 mg/dl (Sm) Not Available [facility] [address], [place], [address], 10/05/2023 14:24:29 10/05/19 24 10/05/2023 urina lysis panel , auto Unknown Analyte Negati ve Not Available [facility] [address], [place], [address], 10/05/2023 14:24:29 10/05/19 24 10/05/2023 urina lysis panel , auto Unknown Analyte Normal Not Available [facility] [address], [place], [address], 10/05/2023 14:24:29 10/05/19 24 10/05/2023 urina lysis panel , auto Unknown Analyte Normal 1 mg/dl Not Available [facility] [address], [place], [address], 10/05/2023 14:24:29 10/05/19 24 10/05/2023 urina lysis panel , auto Unknown Analyte Negati ve Not Available [facility] [address], [place], [address], 10/05/2023 14:24:29 10/05/19 24 10/05/2023 urina lysis panel , auto Unknown Analyte Negati ve Not Available [facility] [address], [place], [address], 10/05/2023 14:24:29 10/05/19 24 10/05/2023 urina lysis panel , auto Unknown Analyte 250 Ian/ul Not Available [facility] [address] [facility] [address], [place], [address], 10/05/2023 14:24:29 10/05/19 24 10/05/2023 urina lysis panel , auto Unknown Analyte Negati ve Not Available [facility] [address], [place], [address], 10/05/2023 14:24:29 04/06/20 24 04/06/2024 PSA, serum or plasm a PSA 12.1 NG/mL 0.0 - 4.0 Not Available [facility] [address] [facility] [address], [place], [address], 04/06/2024 10:05:23 04/06/20 24 04/06/2024 urina lysis panel , auto Unknown Analyte Clean Catch Not Available [facility] [address], [place], [address], 04/06/2024 08:54:16 04/06/2004/06/2024 urina lysis panel , auto Unknown Analyte Yellow Not Available [facility] [address], [place], [address], 04/06/2024 08:54:16 04/06/20 24 04/06/2024 urina lysis panel , auto Unknown Analyte Clear Not Available [facility] [address], [place], [address], 04/06/2024 08:54:16 04/06/2004/06/2024 urina lysis panel , auto Unknown Analyte 1.010 Not Available [facility] [address], [place], [address], 04/06/2024 08:54:16 04/06/2004/06/2024 urina lysis panel , auto Unknown Analyte 1.003- 1.035 Not Available [facility] [address], [place], [address], 04/06/2024 08:54:16 04/06/20 24 04/06/2024 urina lysis panel , auto Unknown Analyte 8.0 Not Available [facility] [address], [place], [address], 04/06/2024 08:54:16 04/06/2004/06/2024 urina lysis panel , auto Unknown Analyte 5.0-8. 0 Not Available [facility] [address], [place], [address], 04/06/2024 08:54:16 04/06/2004/06/2024 urina lysis panel , auto Unknown Analyte Negati ve Not Available [facility] [address], [place], [address], 04/06/2024 08:54:16 04/06/20 24 04/06/2024 urina lysis panel , auto Unknown Analyte Negati ve Not Available [facility] [address], [place], [address], 04/06/2024 08:54:16 04/06/20 24 04/06/2024 urina lysis panel , auto Unknown Analyte Negati ve Not Available [facility] [address], [place], [address], 04/06/2024 08:54:16 04/06/2004/06/2024 urina lysis panel , auto Unknown Analyte Negati ve Not Available [facility] [address], [place], [address], 04/06/2024 08:54:16 04/06/2004/06/2024 urina lysis panel , auto Unknown Analyte Negati ve Not Available [facility] [address], [place], [address], 04/06/2024 08:54:16 04/06/2004/06/2024 urina lysis panel , auto Unknown Analyte Negati ve Not Available [facility] [address], [place], [address], 04/06/2024 08:54:16 04/06/2004/06/2024 urina lysis panel , auto Unknown Analyte Normal Not Available [facility] [address], [place], [address], 04/06/2024 08:54:16 04/06/20 24 04/06/2024 urina lysis panel , auto Unknown Analyte Normal Not Available [facility] [address], [place], [address], 04/06/2024 08:54:16 04/06/2004/06/2024 urina lysis panel , auto Unknown Analyte Negati ve Not Available [facility] [address], [place], [address], 04/06/2024 08:54:16 04/06/2004/06/2024 urina lysis panel , auto Unknown Analyte Negati ve Not Available [facility] [address], [place], [address], 04/06/2024 08:54:16 04/06/2004/06/2024 urina lysis panel , auto Unknown Analyte Normal Not Available [facility] [address], [place], [address], 04/06/2024 08:54:16 04/06/2004/06/2024 urina lysis panel , auto Unknown Analyte Normal 1 mg/dl Not Available [facility] [address], [place], [address], 04/06/2024 08:54:16 04/06/2004/06/2024 urina lysis panel , auto Unknown Analyte Negati ve Not Available [facility] [address], [place], [address], 04/06/2024 08:54:16 04/06/2004/06/2024 urina lysis panel , auto Unknown Analyte Negati ve Not Available [facility] [address], [place], [address], 04/06/2024 08:54:16 04/06/20 24 04/06/2024 urina lysis panel , auto Unknown Analyte 50 Ian/ul Not Available [facility] [address], [place], [address], 04/06/2024 08:54:16 04/06/20 24 04/06/2024 urina lysis panel , auto Unknown Analyte Negati ve Not Available [facility] [address], [place], [address], 04/06/2024 08:54:16 10/06/19 25 10/05/2024 PSA, serum or plasm a PSA 11.6 NG/mL 0.0 - 4.0 Not Available [facility] [address], [place], [address], 10/05/2024 09:43:27 10/06/19 25 10/05/2024 urina lysis panel , auto Unknown Analyte Clean Catch Not Available [facility] [address], [place], [address], 10/05/2024 09:08:30 10/06/19 25 10/05/2024 urina lysis panel , auto Unknown Analyte Yellow Not Available [facility] [address], [place], [address], 10/05/2024 09:08:30 10/06/19 25 10/05/2024 urina lysis panel , auto Unknown Analyte Clear Not Available [facility] [address], [place], [address], 10/05/2024 09:08:30 10/06/19 25 10/05/2024 urina lysis panel , auto Unknown Analyte 1.010 Not Available [facility] [address], [place], [address], 10/05/2024 09:08:30 10/06/19 25 10/05/2024 urina lysis panel , auto Unknown Analyte 1.003 - 1.030 Not Available [facility] [address], [place], [address], 10/05/2024 09:08:30 10/06/19 25 10/05/2024 urina lysis panel , auto Unknown Analyte 7.0 Not Available [facility] [address], [place], [address], 10/05/2024 09:08:30 10/06/19 25 10/05/2024 urina lysis panel , auto Unknown Analyte 5.0 - 8.0 Not Available [facility] [address], [place], [address], 10/05/2024 09:08:30 10/06/19 25 10/05/2024 urina lysis panel , auto Unknown Analyte Negati ve Not Available [facility] [address], [place], [address], 10/05/2024 09:08:30 10/06/19 25 10/05/2024 urina lysis panel , auto Unknown Analyte Negati ve Not Available [facility] [address], [place], [address], 10/05/2024 09:08:30 10/06/19 25 10/05/2024 urina lysis panel , auto Unknown Analyte Negati ve Not Available [facility] [address], [place], [address], 10/05/2024 09:08:30 10/06/19 25 10/05/2024 urina lysis panel , auto Unknown Analyte Negati ve Not Available [facility] [address], [place], [address], 10/05/2024 09:08:30 10/06/19 25 10/05/2024 urina lysis panel , auto Unknown Analyte Negati ve Not Available [facility] [address], [place], [address], 10/05/2024 09:08:30 10/06/19 25 10/05/2024 urina lysis panel , auto Unknown Analyte Negati ve Not Available [facility] [address], [place], [address], 10/05/2024 09:08:30 10/06/19 25 10/05/2024 urina lysis panel , auto Unknown Analyte Normal Not Available [facility] [address], [place], [address], 10/05/2024 09:08:30 10/06/19 25 10/05/2024 urina lysis panel , auto Unknown Analyte Normal Not Available [facility] [address], [place], [address], 10/05/2024 09:08:30 10/06/19 25 10/05/2024 urina lysis panel , auto Unknown Analyte Negati ve Not Available [facility] [facility] [address], [place], [address], 10/05/2024 09:08:30 10/06/19 25 10/05/2024 urina lysis panel , auto Unknown Analyte Negati ve Not Available [facility] [address], [place], [address], 10/05/2024 09:08:30 10/06/19 25 10/05/2024 urina lysis panel , auto Unknown Analyte Normal Not Available [facility] [address], [place], [address], 10/05/2024 09:08:30 10/06/19 25 10/05/2024 urina lysis panel , auto Unknown Analyte Normal Not Available [facility] [address], [place], [address], 10/05/2024 09:08:30 10/06/19 25 10/05/2024 urina lysis panel , auto Unknown Analyte Negati ve Not Available [facility] [address], [place], [address], 10/05/2024 09:08:30 10/06/19 25 10/05/2024 urina lysis panel , auto Unknown Analyte Negati ve Not Available [facility] [address], [place], [address], 10/05/2024 09:08:30 10/06/1910/05/2024 urina lysis panel , auto Unknown Analyte 50 Ian/uL Not Available [facility] [address], [place], [address], 10/05/2024 09:08:30 10/06/1910/05/2024 urina lysis panel , auto Unknown Analyte Negati ve Not Available [facility] [address], [place], [address], 10/05/2024 09:08:30 Result Notes None recorded. Problems Name Problem SNOMED Code Status Onset Date Resolution Date Notes Provider Name and Address Organization Details Recorded Time Prostate specific antigen above reference range 495761808 Active 2014 From Automated Load;Prov ider: Isaiah Perez;S tatus: Active Not Available [facility] 6 01:49:14 Lower urinary tract symptoms due to benign prostatic hypertrop 62216776337 101 Active 2015 From Automated Load;Prov ider: Isaiah Perez;S tatus: Active Not Available [facility] 6 01:49:14 Problem Notes None recorded. Procedures Surgical History Date Name Laterality Status Provider Name and Address Organization Details Recorded Time 7 Hernia Repair completed Ashaelence Bella [facility] 04/08/2017 14:15:26 Prostate biopsy, any mthd completed Ivette Reynoso [facility] 08/06/2016 14:18:54 Imaging Results None recorded. Procedure Notes None recorded. Medical Equipment None Reported. Allergies Allergen ID Allergen Name Allergen Category Reaction Reaction Severity Criticality Documentation Date Start Date Code Code System Note Provider Name and Address Organization Details Recorded Time 592844 Product containin g penicilli n (product) medicatio n Not available Not available Not available 04/16/20162012 61250 7811 SNOMED Comme nt: Creat ed By: Adolfo lang;Clayton eated Date: 05/04 11:15 :40 AM; Not Available [facility] 6 03:48:07 Medications Name Sig Start Date [...] Updated DateTime 08/20/2022 177.8 cm 22.2 kg/m2 71281.82 g Katie Bella [facility] 08/20/2022 13:03:46 Date Recorded Body height Body mass index (BMI) Body weight Provider Name and Address Organization Details Last Updated DateTime 10/01/2022 177.8 cm 22.2 kg/m2 37994.82 g Ivette Reynoso [facility] 10/01/2022 11:02:13 Date Recorded Body height Body mass index (BMI) Body weight Provider Name and Address Organization Details Last Updated DateTime 10/05/2023 177.8 cm 22.2 kg/m2 23230.82 g Lauren Tolentino [facility] 10/05/2023 14:22:44 Date Recorded Body height Body mass index (BMI) Body weight Provider Name and Address Organization Details Last Updated DateTime 10/05/2024 177.8 cm 22 kg/m2 07632.63 g Kurtis Oviedo [facility] 10/05/2024 09:23:38 Date Recorded Body height Body mass index (BMI) Body weight Provider Name and Address Organization Details Last Updated DateTime 04/06/2024 177.8 cm 22.7 kg/m2 50639.59 g Katie Bella [facility] 04/06/2024 09:22:31 Social History Question Answer Notes LastModified by Organizat ion Details LastModified Time Tobacco Smoking Status Former Smoker Ivette Reynoso [facility] 08/06/2016 14:18:30 How Much Tobacco Do You Chew? None [email or web address] Information not available 10/18/2018 Marital Status rich Informat ion not available 08/06/2016 What Was The Date Of Your Most Recent Tobacco Screening? 10/05/2024 [email or web address] Information not available 10/05/2024 Has Tobacco Cessation Counseling Been Provided? No [email or web address] Information not available 07/20/2021 Have You Recently Traveled Abroad? No [email or web address] Information not available 07/20/2021 Sex: Male Functional Status Question Answer Note LastModified by Organizat ion Details LastModified Time Do you use any illicit or recreational drugs? No [email or web address] Information not available 07/20/2021 Do you or have you ever used any other forms of tobacco or nicotine? No Information not available 07/20/2021 What is your level of alcohol consumption? Occasional [email or web address] Information not available 08/06/2016 Mental Status None recorded. Family History Relationship Description Onset Age of this Age Resolved Age Notes LastModified by Organization Details LastModified Time Unspecified Relation Diabetes mellitus [email or web address] Not available 14:18:17 Unspecified Relation Family history [...] N Chemotherapy N Anemia N Heart Attack (NE) N Mental Illness N Diabetes N Seizures/Epilepsy N Congestive Heart Failure (CHF) N Sleep Apnea N Heart Disease Y Bronchitis N Hypertension N Past Encounters Encounter ID Performer Location Encounter Start Date Encounter Closed Date Diagnosis/Indication Diagnosis SNOMED-CT Code Diagnosis ICD10 Code Diagnosis Note [id number] ISAIAH PEREZ MD [facility] [address] [place] [address] 08/06/2016 14:09:46 08/09/2016 16:30:50 Prostate specific antigen above reference range 547967949 R97.20 due to the recent change she will follow-up in 2 months with repeat PSA. [id number] ISAIAH PEREZ MD [facility] [address] [place] [address] 10/08/2016 14:03:21 10/11/2016 12:15:23 Prostate specific antigen above reference range 156175323 R97.20 Follow-up 6 months with PSA [id number] ISAIAH PEREZ MD [facility] [address] [place] [address] 04/08/2017 13:21:23 04/12/2017 08:01:06 Prostate specific antigen above reference range 323259778 R97.20 Follow-up 3 months with PSA [id number] ISAIAH PEREZ MD [facility] [address] [place] [address] 07/13/2017 13:11:25 07/15/2017 11:12:14 Prostate specific antigen above reference range 680557466 R97.20 Follow-up 6 months with PSA [id number] ISAIAH PEREZ MD [facility] [address] [address] 01/18/2018 15:30:12 01/18/2018 17:48:31 Prostate specific antigen above reference range 075296690 R97.20 Follow-up 3 months with PSA [id number] ISAIAH PEREZ MD [facility] [address] [place] [address] 04/19/2018 15:47:30 04/19/2018 16:48:56 Prostate specific antigen above reference range 317476426 R97.20 Follow-up 6 months with PSA [id number] ISAIAH PEREZ MD [facility] [address] [place], [place] [address] 10/18/2018 16:03:21 10/18/2018 17:11:39 Prostate specific antigen above reference range 857791452 R97.20 Follow-up 6 months with PSA Renal mass 742697749 N28 .89 awaiting additional studies as above [id number] ISAIAH PEREZ MD [facility] [address] [address] 04/18/2019 15:01:06 04/18/2019 16:43:44 Prostate specific antigen above reference range 025291207 R97.20 Follow-up 6 months with PSA Renal mass 673639492 N28 [address] scan without and with contrast 6 months renal mass protocol [id number] ISAIAH PEREZ MD [facility] [address] [address] 12/10/2019 12:50:05 12/10/2019 13:53:03 Prostate specific antigen above reference range 812387364 R97.20 Follow-up 6 months with PSA Benign pro static hyperplasia with outflow obstruction 743214846 N40.1 he currently takes no urologic medication s and is satisfied [id number] ISAIAH PEREZ MD [facility] [address] [address] 06/09/2020 10:29:12 06/09/2020 14:15:11 Prostate specific antigen above reference range 551825595 R97.20 Follow-up 6 months with PSA Benign pro static hyperplasia with outflow obstruction 095466728 N40.1 he currently takes no urologic medication s and is satisfied [id number] ISAIAH PEREZ MD [facility] [address] [address] 07/20/2021 11:00:49 07/20/2021 12:12:45 Prostate specific antigen above reference range 097696117 R97.20 Follow-up 6 months with PSA [id number] ISAIAH PEREZ MD [facility] [address] [address] 08/20/2022 12:45:56 08/20/2022 13:37:56 Prostate specific antigen above reference range 926011229 R97.20 1 month with PSA Chronic prostatitis 1990 5009 N41.1 [id number] ISAIAH PEREZ MD [facility] [address] [address] 10/01/2022 10:15:01 10/01/2022 11:37:39 Prostate specific antigen above reference range 944034452 R97.20 6 month with PSA Chronic prostatitis 1990 5009 N41.1 Monitor [id number] ISAIAH PEREZ MD [facility] [address] [address] 10/05/2023 14:04:37 10/05/2023 14:57:28 Prostate specific antigen above reference range 407033786 R97.20 6 month with PSA Benign pro static hyperplasia with outflow obstruction 440893756 N40.1 he currently takes no urologic medication s and is satisfied [id number] ISAIAH PEREZ MD [facility] [address] [address] 04/06/2024 08:45:05 04/06/2024 10:21:20 Prostate specific antigen above reference range 498896743 R97.20 6 month with PSA [id number] ISAIAH PEREZ MD [facility] [address] [address] 10/05/2024 09:01:03 10/05/2024 10:11:02 Prostate specific antigen above reference range 707228830 R97.20 6 month with PSA Health Concerns Section Related Observation LastModified by Organization Detai ls LastModified Time None Recorded Concern Status LastModified by Organization Details LastModified Time None Recorded Advance Directives Directive None Recorded Payers Insurance Date Sequence Insurance Name Policy Number Policy Ritchie Covered Member ID Ritchie Member ID Guarantor Name 10/08/2024 2 [place] [employer]GRAM 111 Timothy Peterson [id number] Timothy Peterson 10/02/2024 1 [place] Timothy Peterson [id number] Timothy Peterson Notes Date Note Type Note Provider Name and Address Organization Details Recorded Time 08/20/2022 text/html Patient is here for follow-up of mildly elevated chronically with PSA. He has mild obstructive symptoms. His obstructive symptoms have been more bothersome with some hesitancy and double voiding. PSA at last visit a year ago was 12.1 but today up to 20.5. He has no dysuria. He has been more physically active and started running. [facility]ERE[facility], [address], [facility] 08/20/2022 13:38:56 10/01/2022 text/html Patient is here [...] with nocturia x0. I suggest continued observation. ISAIAH PEREZ MD [facility] [place], [address], [facility] 10/01/2022 11:37:18 10/05/2023 text/html Patient is here in follow-up of chronically elevated and fluctuating PSA. He has had previously had negative biopsies of the prostate. He has moderate obstructive symptoms with seems to fluctuate in severity. He may have nocturia x 0 or x 3. For the most part he is satisfied. His PSA today was stable at 13.8. ISAIAH PEREZ MD [facility] [place], [address], [facility] 10/06/2023 23:46:47 04/06/2024 text/html Patient is here for scheduled 6-month follow-up with chronically elevated PSA. He has had several biopsies which were negative. He has moderate symptoms which seem to fluctuate in severity. He has nocturia x 2. PSA at last visit was 13.8 and today 12.1. He is having some issues with hypertension. He is followed at the [place] and they are monitoring this[place], [address], [facility] 04/08/2024 15:21:52 10/05/2024 text/html Patient is here to follow-up 6 months regarding chronically elevated and fluctuating PSA. PSA at last visit April 03 0.1. Has had several negative biopsies of the prostate. PSA today is 11.6. No change of urination. Related episode neurologically after a long airplane flight from [place] where he had some memory loss and it was felt that he probably had a light stroke during his flight at some point. He seems to be doing well from that standpoint and is resumed running and actually feels much better. I suggest we continue to follow his PSA. ISAIAH PEREZ MD [facility] [place], [address], [facility] 10/05/2024 10:11:31
--- NOTE | 2024-12-04 00:40 | ECG_ITS ---
APPROVED REPORT Exam: Resting ECG HR:56 bpm ECG Measurements Heart Rate 56 AXES WY 173 P 64 QRSd 95 QRS 61 QT 427 T 65 QTc 419 Conclusion SINUS BRADYCARDIA INCOMPLETE RIGHT BUNDLE BRANCH BLOCK [90+ ms QRS DURATION, TERMINAL R IN V1/V2, 40+ ms S IN I/aVL/V4/V5/V6] No STEMI Electronically signed by : FERNANDO CACERES, 12/04/2024 06:55:27
[2024-12-04 00:46] LABS: Hematocrit 41.3 % (42.0-52.0); Hemoglobin 14.3 g/dL (14.1-18.0); Immature Granulocytes % 0.3 %; Mean Corpuscular HGB Conc 34.6 g/dL (31.8-35.4); Mean Corpuscular Hemoglobin 32.1 pg (27.0-31.2); Mean Corpuscular Volume 92.8 fl (80-94); Nucleated Red Blood Cells % 0 %; Platelet Count 228 K/mm3 (142-424); Red Blood Count 4.45 M/mm3 (4.60-6.20); Red Cell Distribution Width-SD 42.8 fL; White Blood Count 7.5 K/mm3 (4.8-10.8)
[2024-12-04 00:51] LABS: Albumin Level 4.9 g/dl (3.5-5.0); Chloride 99 mmol/L (98-107); Potassium 3.9 mmoL/L (3.5-5.1); Sodium 138 mmol/L (136-145)
[2024-12-04 00:53] LABS: Blood Urea Nitrogen 13 mg/dl (9-20); Creatinine Clearance Estimated 64 mL/min (50-200); Creatinine,Serum 0.70 mg/dl (0.66-1.25); Estimated Glomerular Filt Rate 111 ml/min (>60); GFR (African American) 134 ML/MIN (>60)
[2024-12-04 00:54] LABS: Alanine Aminotransferase 20 U/L (12-78); Albumin/Globulin Ratio 1.6 (1.1-1.8); Alkaline Phosphatase 55 U/L (38-126); Anion Gap 12.9 mEq/L (5-15); Aspartate Amino Transferase 47 U/L (17-59); Bilirubin,Total 0.7 mg/dl (0.2-1.3); Calcium 9.3 mg/dl (8.4-10.2); Carbon Dioxide 30 mmol/L (22.0-30.0); Globulin 3.0 g/dL (1.3-3.2); Glucose 103 mg/dl (74-100); Total Protein,Serum 7.9 g/dl (6.3-8.2)
[2024-12-04 01:05] VITALS: BP 165/98; PULSE 56; O2SAT 98
[2024-12-04 01:11] LABS: Troponin I < 0.01 ng/ml (0.00-0.034)
[2024-12-04 01:27] VITALS: BP 165/98; PULSE 59; RESP 14; TEMP 36.6; O2SAT 99
[2024-12-04 03:27] LABS: Hepatitis C Ab Qual. W/ RFX NEGATIVE (Negative)
== END 2024-12-04 01:34 | disposition home or self-care (01) ==
PROVIDERS: Emergency Provider Emergency Medicine; PCP Internal Medicine
DX: R00.1 Bradycardia, unspecified (principal); I10 Essential (primary) hypertension
CPT/HCPCS: 71045; 80053; 84484; 85025; 86803; 87389; 93005; 99284

== ENCOUNTER 2024-12-31 14:45 | Outpatient (CLI) | payer MEDICARE, BC, SELFPAY ==
--- OUTSIDE RECORDS SUMMARY | 2024-12-31 14:48 | XMS_ITS | Clinical Summary ---
Author Organization [facility] Address [address] [place] [address] Care Team Providers Care Partnership Manager Name Role Phone Unavailable Primary Care Provider Unavailabl e Social History Tobacco Use Types Packs/Day Years Used Date Smoking Tobacco: Never Assessed Abuse Screen Answer Date Recorded Unsafe at Home or Work/School Not on file Feels Threatened by Someone? Not on file 01/2023 Does Anyone Keep You from Co ntacting Others or Doint Things Outside the Home? Not on file 02/28/2023 Physical Sign of Abuse Present Not on file 1 Housing Stability Answer Date Recorded Current Living Arrangements Not on file 01/2023 Potentially Unsafe Housing Conditions Not on jim e 02/28/2023 Family and Community Support Answer Emilio e Recorded Help with Day-to-Day Activities Not on file 02/28/2023 Lonely or Isolated Not on file 02/28/2023 Employment Answer Date Recorded Do you want help finding or keeping work or a gonzalez b? Not on file 02/28/2023 Disabilities Answer Date Recorded Concentrating, Remembering, or Making Decisions Difficulty Not on file 02/28/2023 Doing Errands Independently Difficulty Not on fi le 02/28/2023 Education Answer Date Recorded Help with school or training? Not on file Preferred Language Not on file 02/28/2023 Sex and Gender Information Value Date Recorded Sex Assigned at Not on file Legal Sex Male 12:19 PM EDT Gender Identity Not on file Sexual Orientation Not on file Plan of Treatment Health Maintenance Due Date Last Done Comments ANNUAL PHYSICAL 1950 HEPATITIS C SCREENING 1950 TDAP/TD VACCINES (1 - Tdap) 1970 COLOGUARD 1996 COLON CANCER SCREENING 5 YEAR SIGMOIDOSCOPY 1996 COLONOSCOPY 1996 [address] CANCER SCREENING 1996 CT COLONOGRAPHY 1996 FECAL OCCULT BLOOD TEST 1996 FIT Testing (1 year) 1996 Pneumococcal Vaccine 50+ (1 of 1 - PCV) 2001 ZOSTER VACCINE (1 of 2) 2001 AAA SCREEN ONCE 2016 COVID-19 Vaccine ( - 2023- season) 2024 INFLUENZA VACCINE 02/20/2025
[2024-12-31 16:02] LABS: Anion Gap 12.2 mEq/L (5-15); Blood Urea Nitrogen 18 mg/dl (9-20); Calcium 9.5 mg/dl (8.4-10.2); Carbon Dioxide 28 mmol/L (22.0-30.0); Chloride 104 mmol/L (98-107); Creatinine,Serum 0.60 mg/dl (0.66-1.25); Estimated Glomerular Filt Rate 132 ml/min (>60); GFR (African American) 160 ML/MIN (>60); Glucose 88 mg/dl (74-100); Potassium 4.2 mmoL/L (3.5-5.1); Sodium 140 mmol/L (136-145)
[2024-12-31 17:06] LABS: RPR W/RFX Titers Nonreactive (Nonreactive)
== END 2024-12-31 23:59 | disposition home or self-care (01) ==
LOC: LAB 14:46
PROVIDERS: PCP Internal Medicine; Visit Provider Specialist
DX: G93.40 Encephalopathy, unspecified (principal); R41.3 Other amnesia
CPT/HCPCS: 36415; 80048; 86225; 86235; 86592

== ENCOUNTER 2025-01-15 09:22 | Outpatient (CLI) | payer MEDICARE, BC, SELFPAY ==
--- OUTSIDE RECORDS SUMMARY | 2025-01-15 09:23 | XMS_ITS | Continuity of Care Document ---
Author Name [facility] Organization [facility] Care Team Providers Care Supervisor Weaving Name Role Phone [facility] Unavailable Unavailable Problems Combined list of problems from Department of Defense and Veterans Affairs facilities. It does not include entries that were removed or entered in error. Problem Status Onset Date Problem Type Date of Resolution Comments Source History of polyp of colon Active 9 Condition Jul 10, 2021 Entered By: HUDSON MUNGUIA RA [facility] Diverticular Disease of Colon ([facility] [id number]) Active Condition [facility] Elevated PSA Active Condition [facility] Exposure to potentially hazardous chemical Active Condition [facility] Family history [facility] diabetes mellitus [facility] History of SARS-CoV-2 Active Condition [facility] Internal hemorrhoids Active Condition [facility] Multiple renal cysts Active Condition [facility] Serology Prostate-specific Antigen (PSA) Elevated Active Condition [facility] visit for: pre-employment physical Active Condition [facility] visit: ears/hearing exam for hearing conservation, treatment Active Condition [facility] visit for: ears / hearing exam Inactive Condition [facility] NORMAL ROUTINE HISTORY AND PHYSICAL ADULT (18-65) Inactive Condition [facility] Diagnosis: ICD-10-CM H35.81 Retinal edema Active [facility] Diagnosis: ICD-10-CM R00.2 Palpitations Active Diagnosis [facility] Diagnosis: ICD-10-CM Z13.6 Encounter for screening for cardiovascular disorders Active Diagnosis [facility] Diagnosis: ICD-10-CM Z71.89 Other specified counseling Active Diagnosis [facility] Diagnosis: ICD-10-CM I10 Essential (primary) hypertension Active Diagnosis [facility] Diagnosis: ICD-10-CM Z77.29 Contact with and exposure to other hazardous substances Active Diagnosis [facility] Diagnosis: ICD-10-CM I49.3 Ventricular premature depolarization Active Diagnosis [facility] Diagnosis: ICD-10-CM 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, left eye, stable Active Diagnosis [facility] Diagnosis: ICD-10-CM 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, other specified site Active Diagnosis [facility] Diagnosis: ICD-10-CM M19.93 Secondary osteoarthritis, unspecified site Active Diagnosis [facility] Diagnosis: ICD-10-CM M25.531 Pain in right wrist Active Diagnosis [facility] Diagnosis: ICD-10-CM S62.342A Nondisp fx of base of third bone, right hand, init Active Diagnosis [facility] Diagnosis: ICD-10-CM Z46.1 Encounter for fitting and adjustment of hearing aid Active Diagnosis [facility] Diagnosis: ICD-10-CM H40.013 Open angle with borderline findings, low risk, bilateral Active Diagnosis [facility] Medications Combined list of outpatient medications from Department of Defense and [facility] facilities.Medications provided include 1) outpatient medications from the last 15 months, and 2) patient-reported medications. Medication Details Route Status Patient Instructions Prescription Expires Prescription Number Last Dispense Date Ordering Provider Order Date Order Qty Source DICLOFENAC NA 1% GEL,TOP APPLY 4 GRAM STRIP TO AFFECTED AREA EVERY 6 HOURS FOR PAIN TOPICA L ACTIVE 03/28/2025 [id number] John TORRES 2023 100 [place] HYDROCHLORO THIAZIDE 12.5MG/INDER NOPRIL 10MG TAB TAKE 1 TABLET BY MOUTH DAILY FOR BLOOD PRESSURE /HEART ORAL ACTIVE 05/05/2025 [id number] BELLE MUNGUIA R 2023 90 [place] [facility] HYDROCHLORO THIAZIDE 12.5MG/INDER NOPRIL 10MG TAB TAKE 1 TABLET BY MOUTH DAILY FOR BLOOD PRESSURE /HEART ORAL DISCONT INUED (EDIT) 06/03/2024 [id number] 4 BELLE MUNGUIAA R 2023 60 [place] [facility] METOPROLOL SUCCINATE 50MG TAB,SA TAKE ONE-HALF TABLET BY MOUTH DAILY FOR BLOOD PRESSURE ORAL ACTIVE 07/03/2025 [id number] 5 JOSÉ MIGUEL HURST LALI 2024 45 [place] ROSUVASTATI N CA 40MG TAB TAKE ONE-HALF TABLET BY MOUTH DAILY FOR CHOLESTE ROL ORAL ACTIVE 04/05/2025 [id number] 5 BELLE MUNGUIA NDRA R 2023 45 [place] [facility] Allergies, Adverse Reactions, Alerts Combined list of allergies from Department of Defense and Veterans Affairs facilities. It does not include entries that were removed or entered in error. Substance Category Reaction Severity Reaction type Status Date Reported Comments Source PENICILLIN Propensity to adverse reactions to drug (finding) Eruption active 1 [facility] PENICILLINS Drug allergy (disorder) Unknown active 6 [facility] Immunizations Combined list of available immunizations from the Department of Defense and Veterans Affairs facilities. Immunization Series Date Given Administered By Site Reaction Lot Number CVX Code Drug Aerosol Line Operator Status Comments Source TDAP 1 2016 115 complet ed HISTORICA L INFORMATI ON - FROM OTHER REGISTRY, [place] [facility] Results Combined list of recent chemistry, hematology [...] 2024 03:22 PM Reporting Lab: [facility] [address] [address] Performing Lab: [facility] [place] [address] [address] [facility] PANEL 1 UREA NITROGEN [MASS/VOLUM E] [...] 2024 03:22 PM Reporting Lab: [facility] [place] [address] [address] Performing Lab: [facility] [place] [address] [address] [facility] PANEL 1 GLUCOSE [MASS/VOLUM E] IN [...] 2024 03:22 PM Reporting Lab: [facility] [place] [address] [address] Performing Lab: [facility] [place] [address] [address] [facility] PANEL 1 SODIUM [MOLES/VOLU ME] IN [...] 2024 03:22 PM Reporting Lab: [facility] [place] [address] [address] Performing Lab: [facility] [place] [address] [address] [facility] PANEL 1 POTASSIUM [MOLES/VOLU ME] IN [...] 2024 03:22 PM Reporting Lab: [facility] [place] [address] [address] Performing Lab: [facility] [place] [address] [address] [facility] PANEL 1 CHLORIDE [MOLES/VOLU ME] IN [...] 2024 03:22 PM Reporting Lab: [facility] [address] [facility] [address] Performing Lab: [facility] [address] [facility] [address] [facility] PANEL 1 CARBON DIOXIDE, TOTAL [MOLES/VOLU ME] IN SERUM OR PLASMA 29 mmol/L - 05/04 Specimen Type: PLASMA Comment: Estimated [...] 2024 03:22 PM Reporting Lab: [facility] [place] [address] [address] Performing Lab: [facility] [place] [address] [address] [facility] PANEL 1 CALCIUM [MASS/VOLUM E] IN [...] Apr 04, 2024 03:22 PM Reporting Lab: [facility] [address] [address] Performing Lab: [facility] [address] [facility] PANEL 1 ANION GAP 3 IN [...] 04, 2024 03:22 PM Reporting Lab: [facility] [address] [facility] [address] Performing Lab: M[facility]-Sarbjit [facility] [address] [place] [address] [facility] 1 GLOMERULAR FILTRATION RATE/1.73 SQ [...] 2024 03:22 PM Reporting Lab: [facility] [place] [address] [address] Performing Lab: [facility] [place] [address] [address] [facility] PANEL 5 CREATININE [MASS/VOLUM E] IN [...] 2024 11:13 AM Reporting Lab: [facility] [place] [address] [address] Performing Lab: [facility] [address] [address] [facility] PANEL 5 UREA NITROGEN [MASS/VOLUM E] [...] 03, 2024 11:13 AM Reporting Lab: CARLOS [address] [address] Performing Lab: [address] [address] [facility] PANEL 5 GLUCOSE [MASS/VOLUM E] IN [...] 2024 11:13 AM Reporting Lab: [facility] [place] [address] [address] Performing Lab: [facility] [place] [address] [address] [facility] PANEL 5 SODIUM [MOLES/VOLU ME] IN [...] 2024 11:13 AM Reporting Lab: [facility] [address] [address] Performing Lab: [facility] [address] [address] [facility] PANEL 5 POTASSIUM [MOLES/VOLU ME] IN [...] 2024 11:13 AM Reporting Lab: [facility] [address] [address] Performing Lab: [facility] [place] [address] [address] [facility] PANEL 5 CHLORIDE [MOLES/VOLU ME] IN [...] 2024 11:13 AM Reporting Lab: [facility] [address] [address] Performing Lab: [facility] [address] [address] [facility] PANEL 5 CARBON DIOXIDE, TOTAL [MOLES/VOLU ME] IN SERUM OR PLASMA 26 mmol/L 22 - 29 04/04 Specimen Type: PLASMA Comment: Estimated Glomerular [...] 2024 11:13 AM Reporting Lab: [facility] [address] [address] Performing Lab: [facility] [address] [address] [facility] PANEL 5 CALCIUM [MASS/VOLUM E] IN [...] 2024 11:13 AM Reporting Lab: [facility] [address] [facility] [address] Performing Lab: CAR[facility]OS O[facility] [address] [facility] [address] [facility] PANEL 5 PROTEIN [MASS/VOLUM E] IN [...] 2024 11:13 AM Reporting Lab: [facility] [address] [facility] [address] Performing Lab: [facility] [place] [id number] [facility] [address] [facility] PANEL 5 ALBUMIN [MASS/VOLUM E] IN [...] 2024 11:13 AM Reporting Lab: [facility] [address] [address] Performing Lab: CARLOS [address] [address] [facility] PANEL 5 BILIRUBIN.T OTAL [MASS/VOLUM E] [...] 03, 2024 11:13 AM Reporting Lab: [facility] [address] [place] [address] Performing Lab: [facility] [address] [place] [address] [facility] PANEL 5 ASPARTATE AMINOTRANSF ERASE [ENZYMATIC [...] 2024 11:13 AM Reporting Lab: [facility] [address] [facility] [address] Performing Lab: [facility] [address] [facility] [address] [facility] PANEL 5 ALANINE AMINOTRANSF ERASE [ENZYMATIC [...] 2024 11:13 AM Reporting Lab: [facility] [address] [address] Performing Lab: [facility] [address] [address] [facility] PANEL 5 ANION GAP 3 IN [...] 2024 11:13 AM Reporting Lab: [facility] [place] [address] [address] Performing Lab: [facility] [address] [address] [facility] PANEL 5 ALKALINE PHOSPHATASE [ENZYMATIC ACTIVITY/VO [...] 2024 11:13 AM Reporting Lab: [facility] [address] [address] Performing Lab: [facility] [address] [address] [facility] PANEL 5 GLOMERULAR FILTRATION RATE/1.73 SQ [...] 2024 11:13 AM Reporting Lab: [facility] [address] [address] Performing Lab: [facility] [address] [address] [facility] LIPID PROFILE CHOLESTEROL [MASS/VOLUM E] IN [...] 2024 11:13 AM Reporting Lab: [facility] [address] [address] Performing Lab: [facility] [address] [address] [facility] LIPID PROFILE TRIGLYCERID E [MASS/VOLUM E] [...] 2024 11:13 AM Reporting Lab: [facility] [address] [address] Performing Lab: [facility] [address] [address] [facility] LIPID PROFILE CHOLESTEROL IN HDL [MASS/VOLUM [...] 2024 11:13 AM Reporting Lab: [facility] [address] [address] Performing Lab: [facility] [address] [address] [facility] LIPID PROFILE CHOLESTEROL IN LDL [MASS/VOLUM [...] 2024 11:13 AM Reporting Lab: [facility] [address] [address] Performing Lab: [facility] [address] [address] [facility] GLYCOHEMO GLOBIN HEMOGLOBIN A1C/HEMOGLO BIN.TOTAL IN BLOOD BY HPLC 5.4 4.4 - 6.4 04/04 Specimen Type: BLOOD Comment: [facility] guidelines for A1c interpretat ion: Glycemic control targets are based on Shared Decision Making between clinicians and patients. Criteria used to establish an A1c target recommendat ion can be found at https://www .nm.gov/ignacio lityandpati entsafety/ and include the use of [...] 9.27. Ref: https://ngs p.org/CAPda ta.asp. The in-house [employer]AR[employer] D-100 analyzer has a historical CV <= 2%. Contact the laboratory for further performance characteris tics of this assay. Ordering Provider: HUDSON MUNGUIA RA Report Released Date/Time: Apr 03, 2024 11:13 AM Reporting Lab: [facility] [address] [address] Performing Lab: [facility] [address] [address] [facility] THYROID PROFILE THYROTROPIN [UNITS/VOLU ME] IN [...] 2024 11:13 AM Reporting Lab: [facility] [address] [address] Performing Lab: [facility] [address] [address] [facility] THYROID PROFILE FREE T4 1.06 ng/mL [...] 2024 11:13 AM Reporting Lab: [facility] [address] [address] Performing Lab: [facility] [address] [address] [facility] CRP (for acute inflammat ion) C [...] 2024 11:13 AM Reporting Lab: [facility] [place] [id number] [facility] [address] Performing Lab: CARLOS O[facility] [address] [address] [facility] SED RATE (ISED) ERYTHROCYTE SEDIMENTATI ON RATE BY PHOTOMETRIC METHOD 2 mm/h 0 - 20 04/04 Specimen Type: BLOOD No comment entered. Ordering Provider: HUDSON MUNGUIA RA Report Released Date/Time: Apr 04, 2024 10:26 AM Reporting Lab: [address] [address] Performing Lab: [place] [id number] [place] [address] CBC/PLT LEUKOCYTES [#/VOLUME] IN BLOOD BY AUTOMATED COUNT 6.1 10*3/u L 5.0 - 10.0 04/04 Specimen Type: BLOOD No comment entered. Ordering Provider: HUDSON MUNGUIA RA Report Released Date/Time: Apr 04, 2024 10:26 AM Reporting Lab: [address] [address] Performing Lab: [place] [id number] [place] [address] CBC/PLT ERYTHROCYTE S [#/VOLUME] IN BLOOD BY AUTOMATED COUNT 4.71 10*6/u L 4.6 - 6.2 04/04 Specimen Type: BLOOD No comment entered. Ordering Provider: HUDSON MUNGUIA RA Report Released Date/Time: Apr 04, 2024 10:26 AM Reporting Lab: [address] [address] Performing Lab: [phone] [place] [address] CBC/PLT HEMOGLOBIN [MASS/VOLUM E] IN BLOOD 15.0 g/dL 14.0 - 18.0 04/04 Specimen Type: BLOOD No comment entered. Ordering Provider: HUDSON MUNGUIA RA Report Released Date/Time: Apr 04, 2024 10:26 AM Reporting Lab: [address] [address] Performing Lab: [address] [address] [facility] CBC/PLT HEMATOCRIT [VOLUME FRACTION] OF BLOOD BY AUTOMATED COUNT 43.5 42.0 - 52.0 04/04 Specimen Type: BLOOD No comment entered. Ordering Provider: HUDSON MUNGUIA RA Report Released Date/Time: Apr 04, 2024 10:26 AM Reporting Lab: [address] [address] Performing Lab: [address] [address] [facility] CBC/PLT MCV [ENTITIC VOLUME] BY AUTOMATED COUNT 92.4 fL 80.0 - 94.0 04/04 Specimen Type: BLOOD No comment entered. Ordering Provider: HUDSON MUNGUIA RA Report Released Date/Time: Apr 04, 2024 10:26 AM Reporting Lab: [address] [address] Performing Lab: [address] [address] [facility] CBC/PLT MCH [ENTITIC MASS] BY AUTOMATED COUNT 31.8 pg 27.0 - 31.0 04/04 H Specimen Type: BLOOD No comment entered. Ordering Provider: HUDSON MUNGUIA RA Report Released Date/Time: Apr 04, 2024 10:26 AM Reporting Lab: [address] [address] Performing Lab: [address] [address] [facility] CBC/PLT MCHC [MASS/VOLUM E] BY AUTOMATED COUNT 34.5 g/dL 32.0 - 36.0 04/04 Specimen Type: BLOOD No comment entered. Ordering Provider: HUDSNO MUNGUIA RA Report Released Date/Time: Apr 04, 2024 10:26 AM Reporting Lab: [address] [address] Performing Lab: [address] [address] [facility] CBC/PLT PLATELETS [#/VOLUME] IN BLOOD 199 10*3/u L 150 - 450 04/04 Specimen Type: BLOOD No comment entered. Ordering Provider: HUDSON MUNGUIA RA Report Released Date/Time: Apr 04, 2024 10:26 AM Reporting Lab: [address] [address] Performing Lab: [address] [address] [facility] CBC/PLT PLATELET MEAN VOLUME [ENTITIC VOLUME] IN BLOOD 10.2 fL 9.0 - 13.1 04/04 Specimen Type: BLOOD No comment entered. Ordering Provider: HUDSON MUNGUIA RA Report Released Date/Time: Apr 04, 2024 10:26 AM Reporting Lab: [place] [phone] Performing Lab: [place] [phone] CBC/PLT ERYTHROCYTE DISTRIBUTIO N WIDTH [ENTITIC VOLUME] BY AUTOMATED COUNT 12.4 11.0 - 16.0 04/04 Specimen Type: BLOOD No comment entered. Ordering Provider: HUDSON MUNGUIA RA Report Released Date/Time: Apr 04, 2024 10:26 AM Reporting Lab: [place] [phone] Performing Lab: [address] CBC/PLT NUCLEATED ERYTHROCYTE S/100 ERYTHROCYTE S IN BLOOD 0.0 0.0 - 0.0 04/04 Specimen Type: BLOOD No comment entered. Ordering Provider: HUDSON MUNGUIA RA Report Released Date/Time: Apr 04, 2024 10:26 AM Reporting Lab: [place] [phone] Performing Lab: [place] [id number] AUTOMATED DIFF LYMPHOCYTES /100 LEUKOCYTES IN BLOOD BY AUTOMATED COUNT 24.0 24.0 - 44.0 04/04 Specimen Type: BLOOD No comment entered. Ordering Provider: HUDSON MUNGUIA RA Report Released Date/Time: Apr 04, 2024 10:26 AM Reporting Lab: [place] [phone] Performing Lab: [place] [phone] AUTOMATED DIFF MONOCYTES/1 00 LEUKOCYTES IN BLOOD BY AUTOMATED COUNT 13.6 0.1 - 6.0 04/04 H Specimen Type: BLOOD No comment entered. Ordering Provider: HUDSON MUNGUIA RA Report Released Date/Time: Apr 04, 2024 10:26 AM Reporting Lab: [address] [address] Performing Lab: [address] [address] [facility] AUTOMATED DIFF GRANULOCYTE S/100 LEUKOCYTES IN BLOOD BY AUTOMATED COUNT 58.4 42.0 - 75.0 04/04 Specimen Type: BLOOD No comment entered. Ordering Provider: HUDSON MUNGUIA RA Report Released Date/Time: Apr 04, 2024 10:26 AM Reporting Lab: [address] [address] Performing Lab: [address] [address] [facility] AUTOMATED DIFF LYMPHOCYTES [#/VOLUME] IN BLOOD BY AUTOMATED COUNT 1.47 10*3/u L 1.20 - 3.40 04/04 Specimen Type: BLOOD No comment entered. Ordering Provider: HUDSON MUNGUIA RA Report Released Date/Time: Apr 04, 2024 10:26 AM Reporting Lab: [address] [address] Performing Lab: [address] [address] [facility] AUTOMATED DIFF MONOCYTES [#/VOLUME] IN BLOOD BY AUTOMATED COUNT 0.83 10*3/u L 0.00 - 0.60 04/04 H Specimen Type: BLOOD No comment entered. Ordering Provider: HUDSON MUNGUIA RA Report Released Date/Time: Apr 04, 2024 10:26 AM Reporting Lab: [address] [address] Performing Lab: [address] [address] [facility] AUTOMATED DIFF GRANULOCYTE S [#/VOLUME] IN BLOOD BY AUTOMATED COUNT 3.58 10*3/u L 1.40 - 6.50 04/04 Specimen Type: BLOOD No comment entered. Ordering Provider: HUDSON MUNGUIA RA Report Released Date/Time: Apr 04, 2024 10:26 AM Reporting Lab: [address] [address] Performing Lab: [phone] [place] [address] AUTOMATED DIFF BASOPHILS/1 00 LEUKOCYTES IN BLOOD BY AUTOMATED COUNT 0.7 0.0 - 3.0 04/04 Specimen Type: BLOOD No comment entered. Ordering Provider: HUDSON MUNGUIA RA Report Released Date/Time: Apr 04, 2024 10:26 AM Reporting Lab: [place] [phone] Performing Lab: [place] [address] [place] [address] AUTOMATED DIFF BASOPHILS [#/VOLUME] IN BLOOD BY AUTOMATED COUNT 0.04 10*3/u L 0.00 - 0.20 04/04 Specimen Type: BLOOD No comment entered. Ordering Provider: HUDSON MUNGUIA RA Report Released Date/Time: Apr 04, 2024 10:26 AM Reporting Lab: [place] [phone] Performing Lab: [address] AUTOMATED DIFF EOSINOPHILS /100 LEUKOCYTES IN BLOOD BY AUTOMATED COUNT 3.1 0.0 - 10.0 04/04 Specimen Type: BLOOD No comment entered. Ordering Provider: HUDSON MUNGUIA RA Report Released Date/Time: Apr 04, 2024 10:26 AM Reporting Lab: [place] [phone] Performing Lab: [place] [phone] [place] [address] AUTOMATED DIFF EOSINOPHILS [#/VOLUME] IN BLOOD BY AUTOMATED COUNT 0.19 10*3/u L 0.00 - 0.70 04/04 Specimen Type: BLOOD No comment entered. Ordering Provider: HUDSON MUNGUIA RA Report Released Date/Time: Apr 04, 2024 10:26 AM Reporting Lab: [place] [phone] Performing Lab: [place] [phone] [place] [address] AUTOMATED DIFF IMMATURE GRANULOCYTE S/100 LEUKOCYTES IN BLOOD 0.2 0.0 - 0.5 04/04 Specimen Type: BLOOD No comment entered. Ordering Provider: HUDSON MUNGUIA RA Report Released Date/Time: Apr 04, 2024 10:26 AM Reporting Lab: [address] [address] Performing Lab: [address] [address] [facility] AUTOMATED DIFF IMMATURE GRANULOCYTE S [#/VOLUME] IN BLOOD 0.01 10*3/u L 0.00 - 0.06 04/04 Specimen Type: BLOOD No comment entered. Ordering Provider: HUDSON MUNGUIA RA Report Released Date/Time: Apr 04, 2024 10:26 AM Reporting Lab: [address] [address] Performing Lab: [address] [address] [facility] RHEUMATOI D FACTOR RHEUMATOID FACTOR [UNITS/VOLU ME] IN SERUM OR PLASMA <8 NEGATI VE[IU] /mL <8 NEGATIVE - 8 03/27 Specimen Type: SERUM No comment entered. Ordering Provider: ECTOR TORRES Report Released Date/Time: Mar 27, 2024 11:07 AM Reporting Lab: [address] [address] Performing Lab: [address] [address] [facility] Vital Signs Combined list of inpatient and outpatient Vital Signs from Department of Defense and Veterans Affairs, ranging from 12 months to all on record, depending upon the facility. Vital Sign Value Date Comments Source SYSTOLIC BLOOD PRESSURE 130 07/02/2024 14:51:00 [facility] DIASTOLIC BLOOD PRESSURE 80 07/02/2024 14:51:00 [facility] PULSE OXIMETRY 98 07/02/2024 14:51:00 [facility] WEIGHT 165.4 07/02/2024 14:51:00 [facility] BMI 24 kg/m2 07/02/2024 14:51:00 [facility] PAIN 0 07/02/2024 14:51:00 [place] [facility] TEMPERATURE 98.2 07/02/2024 14:51:00 [place] [facility] PULSE 74 07/02/2024 14:51:00 [place] [facility] SYSTOLIC BLOOD PRESSURE 114 05/04/2024 09:07:05 [place] [facility] DIASTOLIC BLOOD PRESSURE 68 05/04/2024 09:07:05 [place] [facility] PULSE 65 05/04/2024 09:07:05 [place] [facility] SYSTOLIC BLOOD PRESSURE 181 04/04/2024 09:43:09 [place] [facility] DIASTOLIC BLOOD PRESSURE 95 04/04/2024 09:43:09 [place] [facility] PULSE OXIMETRY 97 04/04/2024 09:43:09 [place] [facility] WEIGHT 164.8 04/04/2024 09:43:09 [place] [facility] BMI 24 kg/m2 04/04/2024 09:43:09 [place] [facility] PAIN 0 04/04/2024 09:43:09 [place] [facility] HEIGHT 69 04/04/2024 09:43:09 [place] [facility] TEMPERATURE 97.2 04/04/2024 09:43:09 [facility] PULSE 67 04/04/2024 09:43:09 [place] [facility] SYSTOLIC BLOOD PRESSURE 184 03/27/2024 10:38:37 [place] [facility] DIASTOLIC BLOOD PRESSURE 105 03/27/2024 10:38:37 [place] [facility] PULSE OXIMETRY 97 03/27/2024 10:38:37 [facility] [place] [facility] WEIGHT 162 03/27/2024 10:38:37 [place] GTON [facility] BMI 24 kg/m2 03/27/2024 10:38:37 [place] G[place] [facility] HEIGHT 69 03/27/2024 10:38:37 [place] G[place] [facility] TEMPERATURE 98.2 03/27/2024 10:38:37 PAULINE NGTON [facility] PULSE 65 03/27/2024 10:38:37 МАРИНА KLINE [facility] RESPIRATION 20 03/27/2024 10:38:37 PAULINE JACKSON [facility] SYSTOLIC BLOOD PRESSURE 166 02/21/2024 09:27:36 MUSA [facility] DIASTOLIC BLOOD PRESSURE 104 02/21/2024 09:27:36 MUSA [facility] PULSE OXIMETRY 98 02/21/2024 09:27:36 L FÉLIX [facility] WEIGHT 160 02/21/2024 09:27:36 [place] SHAGGYON [facility] BMI 24 kg/m2 02/21/2024 09:27:36 [place] G[place] [facility] PAIN 0 02/21/2024 09:27:36 [place] G[place] [facility] TEMPERATURE 98.3 02/21/2024 09:27:36 PAULINE JACKSON [facility] PULSE 63 02/21/2024 09:27:36 YASMANIIN GTON [facility] Encounters Combined list of: 1) Encounters [...] ALLIE Snowden(Hearin g Conservat ion-[employer] [employer]) OUTPATIENT [id number] HEARING CINDI IZQUIERDO 04/06 Released w/o Limitations ALLIE Snowden(Hear ing Conserv ation-B luegras s) ALLIE Snowden[facility] OUTPATIENT [id number] ANNUAL PHYSICA L FOR TMDE ENGINEE RING HAI AGUILAR 04/06 Released w/o Limitations ALLIE Snowden([facility]) ALLIE Snowden(Hearin g Conservat ion[employer] [employer]) OUTPATIENT [id number] Hearing MARIBELL BOWERS S 04/15 Released w/o Limitations ALLIE Snowden(Hear ing Conserv ation-B luegras s) ALLIE Snowden(Occupa tiformerly [facility]) OUTPATIENT [id number] Annual Physica l VINCENT, MARGARITO A 04/15 Released w/o Limitations Jennifer SLOAN [place](Occ[place]ation[place] Health) [place] OUTPATIENT [id number] Annual Hearing SANDRA OCONNELL Elaine 03/25 Released w/o Limitations Jennifer [place]) [place] OUTPATIENT [id number] Annual PE CELESTEMIGUEL A 03/25 Released w/o Limitations Jennifer LISA [place](Occ[place] pationa [place] Health) Jennifer [place], ALLIE(Hearin g Conservat ion[employer] [employer]) OUTPATIENT [id number] Annual Hearing ELISSA MARIBELL S 03/10 Released w/o Limitations [place]) [place] SLOAN [place], ALLIE(Occupa tiformerly [facility]) OUTPATIENT [id number] annual physica l exam MARGARITO LI A 03/17 Released w/o Limitations [place] SLOAN Lou, ALLIE(Occu pationa l Health) [facility] OFFICE O/P EST SF 10 MIN [id number] Diagnos is: ICD-10- CM H40.013 Open angle with borderl ine finding s, low risk, bilater al SARI CHANNEVILLE L 07/27 [place] [facility] HEARING AID REPAIR/MOD IFYING [id number] Diagnos is: ICD-10- CM Z46.1 Encount er for fitting and adjustm ent of hearing aid SARAVANAN CABALLERO 07/27 [place] HC PRO PHONE CALL 11-20 MIN [id number] Diagnos is: ICD-10- CM 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 Chawla 07/28 [place] [facility] OFFICE O/P EST MOD 30 MIN [id number] Diagnos is: ICD-10- CM 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, left eye, stable MANAS HUNT L 09/01 [place] [facility] OFFICE O/P EST MOD 30 MIN [id number] Diagnos is: ICD-10- CM 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, left eye, stable FRANCINE,TAY NITO N 09/29 [place] [facility] Outpatient Encounter [id number] 10/11 [place] [facility] OFFICE O/P EST SF 10 MIN [id number] Diagnos is: ICD-10- CM 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, left eye, stable SHIRLEY ESCAMILLA N 12/25 [place] [facility] EMERGENCY DEPT VISIT LOW MDM [id number] Diagnos is: ICD-10- CM S62.342 A Nondisp fx of base of third bone, right hand, init Yaz RUIZ 02/09 [place] OFFICE O/P NEW LOW 30 MIN [id number] Diagnos is: ICD-10- CM M25.531 Pain in right wrist BUFFY LABOY V 02/20 [place] Outpatient Encounter [id number] MACARIO RASCON 02/21 [place] [facility] Outpatient Encounter [id number] 02/21 [place] Outpatient Encounter [id number] 03/07 [place] OFFICE O/P EST MOD 30 MIN [id number] Diagnos is: ICD-10- CM 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 , unspeci fied site AGUSTINA TORRES W 03/27 [place] THERAPEUTI C EXERCISES [id number] Diagnos is: ICD-10- CM M19.29 Seconda ry osteoar thritis , other specifi ed site MACARIO RASCON S 03/27 [place] OFFICE O/P EST SF 10 MIN [id number] Diagnos is: ICD-10- CM 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, left eye, stable GERRI ZAPATA LLJAROD K 03/30 [place] [facility] OFFICE O/P EST HI 40 MIN [id number] Diagnos is: ICD-10- CM I10 Essenti al (primar y) hyperte MARVA Adams R 04/04 [place] [facility] ELECTROCAR DIOGRAM TRACING [id number] Diagnos is: ICD-10- CM Z13.6 Encount er for screeni ng for cardiov ascular disorde rs SONU,ANAND IG A 04/04 [place] OFF/OP EST MAY X REQ PHY/QHP [id number] Diagnos is: ICD-10- CM Z77.29 Contact with and exposur e to other hazardo us substan REJI Regalado S 04/04 [place] [facility] HC PRO PHONE CALL 5-10 MIN [id number] Diagnos is: ICD-10- CM I10 Essenti al (primar y) hyperte nsion REJI CHAUDHARI S 04/04 [place] [facility] EXT ECG>7D<15D REC SCAN A/R [id number] Diagnos is: ICD-10- CM Z13.6 Encount er for screeni ng for cardiov ascular disorde ANAND Green IG A 04/09 [place] HC PRO PHONE CALL 5-10 MIN [id number] Diagnos is: ICD-10- CM Z77.29 Contact with and exposur e to other hazardo us substan huong REJI CHAUDHARI S 04/11 [place] [facility] Outpatient Encounter [id number] MEREDITHMACARIO LAST S 04/16 [place] [facility] EXT ECG>7D<15D REC SCAN A/R [id number] Diagnos is: ICD-10- CM Z13.6 Encount er for screeni ng for cardiov ascular disorde ANAND Green IG A 04/20 [place] Outpatient Encounter [id number] XANDERYARELIMOSHE LAUREN S 04/22 [place] TTE W/DOPPLER COMPLETE [id number] [id number] Diagnos is: ICD-10- CM Z13.6 Encount er for screeni ng for cardiov ascular disorde rs HEATHER MAN W 04/23 [place] HC PRO PHONE CALL 5-10 MIN [id number] Diagnos is: ICD-10- CM Z77.29 Contact with and exposur e to other hazardo us substan REJI Regalado 04/26 [place] [facility] Outpatient Encounter [id number] 04/26 [place] [facility] HC PRO PHONE CALL 5-10 MIN [id number] [id number] Diagnos is: ICD-10- CM Z77.29 Contact with and exposur e to other hazardo us substan REJI Regalado 04/26 [place] [facility] Outpatient Encounter [id number] Diagnos is: ICD-10- CM I49.3 Ventric ular prematu re depolar ization MAN,HEATHER E W 04/29 [place] PRO PHONE CALL 5-10 MIN [id number] Diagnos is: ICD-10- CM Z77.29 Contact with and exposur e to other hazardo us substan REJI Regalado 04/30 [place] [facility] HC PRO PHONE CALL 5-10 MIN [id number] Diagnos is: ICD-10- CM I10 Essenti al (primar y) hyperte REJI Lemos 05/04 [place] [facility] OFF/OP EST MAY X REQ PHY/QHP [id number] Diagnos is: ICD-10- CM I10 Essenti al (primar y) hyperte felipe MARIA TERESA,NO RMA J 05/04 [place] [facility] OFFICE O/P NEW SF 15 MIN [id number] [id number] Diagnos is: ICD-10- CM H35.81 Retinal edema SUSHIL DE PAULINO,A NA 05/04 [place] Outpatient Encounter [id number] 05/11 [place] [facility] EXT ECG>7D<15D REC SCAN A/R [id number] Diagnos is: ICD-10- CM Z13.6 Encount er for screeni ng for cardiov ascular disorde low 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 SERVICES 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 IG A 05/21 [place] Outpatient Encounter [id number] 05/31 [place] [facility] PH1 ASSMT&MGMT NQHP 11-20 [id number] Diagnos is: ICD-10- CM 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 Chawla 05/31 [place] [facility] Outpatient Encounter [id number] [id number] 06/06 [place] ELECTROCAR DIOGRAM COMPLETE [id number] [id number] Diagnos is: ICD-10- CM Z13.6 Encount er for screeni ng for cardiov ascular disorde low ASCENCIOANAND IG A 06/26 [place] OFFICE O/P NEW MOD 45 MIN [id number] Diagnos is: ICD-10- CM R00.2 Palpita tions AIFORD BAILEY IK 07/02 [place] OFFICE O/P EST SF 10 MIN [id number] Diagnos is: ICD-10- CM H35.81 Retinal edema ALFONSO LORD IC B 07/13 [place] Outpatient Encounter [id number] 09[facility]26 [facility] Procedures Combined list of: 1) Procedures from Department of Veterans Affairs facilities going back up to thelast 18 months, not all VA non-surgical procedures are included; 2) All procedures from the Department of Defense facilities. Procedure Procedure Type Code Date Perfomer Comments [facility] SCREENING TEST, PURE TONE, AIR ONLY 03/17/2010 [...] PRESSURE 09/24/1999 [facility] Audiogram (Screening) Audiogram (Screening) [id number] 03/17/2010 MARGARITO LI Screening Test Of Visual Acuity, Quantitative, Bilateral Screening Test Of Visual Acuity, Quantitative, Bilateral 59742 03/17/2010 MARGARITO LI Visual Cary Test Extended Examination Visual Cary Test Extended Examination 96670 03/17/2010 MARGARITO LI Visual Function Screening Visual Function Screening 97662 03/17/2010 MARGARITO LI Extensive Color Vision Testing Extensive Color Vision Testing 02877 03/17/2010 MARGARITO LI Audiogram (Screening) Audiogram (Screening) 19849 04/15/2008 MARGARITO LI Screening Test Of Visual Acuity, Quantitative, Bilateral Screening Test Of Visual Acuity, Quantitative, Bilateral 07497 04/15/2008 MARGARITO LI [facility] Visual Cary Test Extended Examination Visual Cary Test Extended Examination 91925 04/15/2008 MARGARITO LI [facility] Visual Function Screening Visual Function Screening 71066 04/15/2008 MARGARITO LI Extensive Color Vision Testing Extensive Color Vision Testing 00372 04/15/2008 MARGARITO LI Tonometry Tonometry 24152 04/15/2008 MARGARITO LI [facility] Visual Cary Test Extended Examination Visual Cary Test Extended Examination 19212 04/06/2007 [facility] THOMSON Spirometry Spirometry 60974 04/06/2007 [facility] ECG Interpretation And Report Only ECG Interpretation And Report Only 22127 04/06/2007 [facility] THOMSON ECG 12-Lead ECG 12-Lead 96911 04/06/2007 HA[facility] THOMSON Visual Function Screening Visual Function Screening 34409 04/06/2007 HAI THOMSON Extensive Color Vision Testing Extensive Color Vision Testing 23541 04/06/2007 HAI THOMSON Tonometry Tonometry 78832 04/06/2007 HAI THOMSON Audiogram (Screening) Audiogram (Screening) 14712 04/06/2007 HAI THOMSON Social History Combined list of available smoking, tobacco, and other social history from Department of Defense and Veterans Affairs facilities. Social History Type Response Date Comment Sour e Tobacco smoking status NHIS VA-TOBACCO FORMER USER 04/04/2024 [facility] History of tobacco use PR-TOBACCO QUIT 15 YRS OR MORE 04/04/2024 [facility] History of tobacco use PR-TOBACCO QUIT 15 YRS OR MORE 03/25/2023 [facility] History of tobacco use PR-TOBACCO FORMER USER 02/22/2022 [facility] History of tobacco use PR-TOBACCO FORMER USER 03/25/2021 [facility] This section is an empty social history section. [facility]
--- OUTSIDE RECORDS SUMMARY | 2025-01-15 09:25 | XMS_ITS | Clinical Summary ---
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
--- NOTE | 2025-01-15 09:30 | MR_ITS ---
FINAL REPORT TECHNIQUE: Multiplanar and multisequence imaging of the brain was obtained before and after contrast injection. CLINICAL HISTORY: encephalopathy, memory loss FINDINGS: Atrophy is noted with associated ex vacuo dilatation of the ventricles. There is no mass effect or midline shift. There are bilateral periventricular and subcortical foci of T2 abnormality which are nonspecific, favor chronic small vessel ischemia. There is encephalomalacia within the right posterior temporal lobe which could be related to old infarct. No hydrocephalus. The cerebellum and brainstem have an unremarkable appearance. There are no areas of restricted diffusion on diffusion weighted images to suggest acute infarct. Soft tissues are without acute abnormality. Post contrast images reveal no pathologic contrast enhancement. IMPRESSION: No acute intracranial abnormality and no pathologic contrast enhancement. Periventricular and subcortical T2 abnormality, likely related to changes of chronic small vessel ischemia. Encephalomalacia within the right posterior temporal lobe. Reviewed, Interpreted and Dictated by Hemalatha Mendenhall MD Transcribed by Barbara Mcdaniels Authenticated and [facility]
--- NOTE | 2025-01-15 09:38 | XR_ITS ---
FINAL REPORT CLINICAL HISTORY: hx metal bilateral eyes. clearance for mri. FINDINGS: ORBITS Look up and look down views were obtained for MRI clearance. No radiopaque foreign body identified IMPRESSION: No radiopaque foreign body. Reviewed, Interpreted and Dictated by Hemalatha Mendenhall MD Transcribed by Elizabeth Escudero Authenticated and [facility]
[2025-01-15] MEDS: SODIUM CHLORIDE 0.9% 10ML SYR (RAD ONLY) 10 ML IV (10:33)
[2025-01-15] MEDS: GADOTERIDOL INJ 20ML SYRINGE 14 ML IV (10:33)
== END 2025-01-15 23:59 | disposition home or self-care (01) ==
LOC: RAD 09:23
PROVIDERS: PCP Internal Medicine; Visit Provider Specialist
DX: G93.89 Other specified disorders of brain (principal); G93.40 Encephalopathy, unspecified; R09.89 Other specified symptoms and signs involving the circulatory and respiratory systems; R41.3 Other amnesia; Z04.89 Encounter for examination and observation for other specified reasons
CPT/HCPCS: 70200; 70553; A9576

== ENCOUNTER 2025-02-11 15:30 | Outpatient (CLI) | payer MEDICARE, BC, SELFPAY ==
--- OUTSIDE RECORDS SUMMARY | 2025-02-11 15:33 | XMS_ITS | Clinical Summary ---
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
[2025-02-11 15:36] LABS: Microscopic, Urine URINE MICROSCOPIC (MICROSCOPIC)
[2025-02-11 16:14] LABS: Bilirubin,Urine Negative (Negative); Color,Urine YELLOW (Yellow); Glucose,Urine (UA) Negative (Negative); Ketones,Urine Negative (Negative); Leukocyte Esterase,Urine Negative (Negative); PH,Urine 5.5 (5.0-8.5); Protein,Urine TRACE (Negative); Specific Gravity, Urine 1.025 (1.005-1.030); Urobilinogen,Urine 0.2 EU/dl (0.2)
[2025-02-11 17:28] LABS: Bacteria,Urine Trace /lpf; Squamous Epithelial Cell,Urine Occasional #/hpf (0-5)
== END 2025-02-11 23:59 | disposition home or self-care (01) ==
PROVIDERS: PCP Internal Medicine; Visit Provider Specialist
DX: R35.1 Nocturia (principal)
CPT/HCPCS: 81001

== ENCOUNTER 2025-04-03 07:02 | Day surgery (SDC) | payer MEDICARE, BC, SELFPAY ==
--- NOTE | 2025-03-31 11:03 | P.HP_ITS ---
History of Present Illness *Admission Date: 04/03/25 *History of present illness: Mr. Peterson is a 74-year-old gentleman who is here for diagnostic colonoscopy. The patient has had a change in bowel habits and states that this began after a trip to [place] in February of last year. The patient ate at a questionable restaurant and since then has had loose or watery stools at the end of his bowel movements on many days. He did make some dietary changes, stopped drinking alcohol and began taking Konsyl. This has helped with his symptoms but he has not had complete resolution. He has a formed bowel movement on most days of the week and then a couple days a week, he will start with formed bowel movements an d these will become softer and loose. The patient does state that his paternal grandfather had colon cancer in his 60s. His maternal aunt has Crohn's disease. The patient had a colonoscopy with me in September 2018 and had a single polyp (tubular adenoma) removed. The examination is deemed medically necessary for diagnostic colonoscopy. The patient has been seen, interviewed and examined prior to the procedure by both myself and the anesthesia provider. [facility] Disclaimer: The information contained in this section may have been updated after the patient was seen, as this information can be updated by other users. Medical History Nocturnal hypoxemia Nocturia History of traumatic head injury Memory loss Concussion Hypertension Surgical History Hx of shoulder surgery Hx of heart surgery Hx of cataract extraction History of repair of ACL Family History Other Cancer Diabetes Hypertension Social History (Updated 04/03/25 @ 08:18 by Nacho Gomez CRNA) Smoking Status: Never smoker alcohol intake: current alcohol intake frequency: a few times a week substance use type: denies use current occupational status: retired Travel in the last 8 weeks?: None household members: spouse housing: house current occupation: [employer] caffeine: Yes Have you lived/traveled outside US in past 30 days?: No Contact w/someone who lives/traveled outside US past 30 days?: No Exposure to someone with infectious disease in past 14 days?: No Do you have a fever (greater than 100.4 F or 38 C)?: No Have you tested positive for COVID-19?: No Exposed to someone with COVID-19 in past 14 days?: No Do you have a sore throat?: No Do you have a cough?: No Do you have any weakness?: No Are you experiencing any nausea/vomitting?: No Do you have any diarrhea?: No Are you experiencing any unusual bleeding?: No Do you have any muscle aches/pain?: No Do you have any abdominal pain?: No Are you experiencing loss of taste or smell?: No Other Medical History Have you received the Flu Vaccine for this season: No Have you received the Pneumonia Vaccine: No Review of Systems Review of Systems Review of systems (narrative): Negative *Cardiovascular Comments: Negative *Gastrointestinal Comments: Negative *Genitourinary Comments: Negative *Musculoskeletal Comments: Negative *Neurologic Comments: Negative Meds Home Medications and Allergies Home Medications ?Medication ?Instructions ?Recorded ?Confirmed ?Type lisinopril 10 mg tablet 10 mg PO DAILY #90 tabs 11/2004/03/25 Rx aspirin 81 mg tablet 81 mg PO DAILY 01/24/2503/23 History atorvastatin 10 mg tablet (Lipitor) 10 mg PO DAILY 09/1404/03/25 History sodium,potassium,mag sulfates 17.5 See Rx Instructions PO .COMPLEX 03/20/25 Rx gram-3.13 gram-1.6 gram oral soln #354 mL (Suprep Bowel Prep Kit) New Prescriptions to Start Prescriptions: Allergies Allergy/AdvReac Type Severity Reaction Status Date / Time Penicillins (PENICILLINS) Allergy Unknown S-ANAPHYLAX Verified 04/03/25 07:38 IS Exam *Routine HEENT Exam Head: Present normocephalic Eye: Present EOMI and PERRL ENT: Present mucous membranes moist *Routine Neck Exam Neck: Present supple *Routine Respiratory Exam Respiratory: Present CTA bilaterally *Routine Cardiovascular Exam Cardiovascular: Present RRR *Routine Abdominal Exam Abdominal: Present soft and normoactive bowel sounds; Absent tenderness *Routine Rectal Exam Rectal:: deferred *Routine Genitalia Exam Genitalia:: deferred *Routine Extremities Exam Extremities: Absent cyanosis, clubbing or edema *Routine Skin Exam Skin: Present warm; Absent rash *Routine Neurological Exam Neurological: Present alert and oriented X3 Assessment and Plan *Assessment and plan (1) Change in bowel movement: Status: Chronic Category: Medical Code(s): R19.8 - Other specified symptoms and signs involving the digestive system and abdomen (2) Loose stools: Status: Acute Category: Medical Code(s): R19.5 - Other fecal abnormalities (3) Diarrhea: Status: Acute Category: Medical Code(s): R19.7 - Diarrhea, unspecified (4) Personal history of adenomatous and serrated colon polyps: Status: Acute Category: Medical Code(s): Z86.0101 - Personal history of adenomatous and serrated colon polyps Plan A/P: 1. Change in bowel habits with loose stools and some diarrhea is the preprocedural diagnosis. The patient does have a personal history of an adenomatous colon polyp. The patient will be anesthetized/sedated using MAC sedation. The patient has been seen and examined. Cardiac and lung assessment prior to the examination is stable. Proceed with planned diagnostic colonoscopy.
[2025-04-02 12:46] VITALS: BMI 21.9
--- NOTE | 2025-04-03 06:57 | HMH.PROCNOTE ---
[facility] Procedure Note Date: 04/03/25 Time: 08:52 Procedure Note:: Colonoscopy Procedure Report: Colonoscopy with cold snare polypectomy and cold biopsies Endoscopist: Roderick Joseph II, MD Referring physician: Dorian Tolentino MD Date of Procedure: April 03, 2025 Equipment: Olympus [id number] adult colonoscope Sedation: MAC sedation Indication: Mr. Peterson is a 74-year-old gentleman who is here for diagnostic colonoscopy. The patient has had a change in bowel habits and states that this began after a trip to [place] in February of last year. The patient ate at a [employer] restaurant and since then has had loose or watery stools at the end of his bowel movements on many days. He did make some dietary changes, stopped drinking alcohol and began taking Konsyl. This has helped with his symptoms but he has not had complete resolution. He has a formed bowel movement on most days of the week and then a couple days a week, he will start with formed bowel movements and these will become softer and loose. The patient does state that his paternal grandfather had colon cancer in his 60s. His maternal aunt has Crohn's disease. The patient had a colonoscopy with pa in September 2018 and had a single polyp (tubular adenoma) removed. The examination is deemed medically necessary for diagnostic colonoscopy. The patient reports no rectal bleeding, abdominal pain, gassiness or bloating. He has had some intentional weight loss. Procedure: Prior to the procedure, a history and physical exam was performed, and patient's medications and allergies were reviewed. The risks, benefits and alternatives of the sedation and procedure were discussed with the patient. All questions were answered and informed consent was obtained. The patient was brought to the procedure room. Patient identification and proposed procedure were verified by the physician and the nurse. The patient was placed in a left lateral decubitus position and the scope was passed under direct vision. Throughout the procedure, the patient's blood pressure, pulse, and oxygen saturations were monitored continuously. The colonoscopy was accomplished without difficulty. The patient tolerated the procedure well. Findings: On digital rectal examination there was normal rectal tone. There were no external hemorrhoids. The colonoscope was introduced through the anal canal to the rectum and advanced to the cecum. The ileocecal valve and appendiceal orifice were identified. The scope was advanced a short distance into the ileum which appeared grossly normal. The scope was then withdrawn into the colon. The cecum, ascending and transverse colon and mucosa were grossly normal. Random biopsies were taken from the right colon to rule out microscopic colitis. There were 2 diminutive polyps in the descending colon (3 and 5 mm) which were both removed via cold snare polypectomy. There were scattered diverticuli throughout the descending and sigmoid colon (LEFT colon). The rectum itself was normal. Upon retroflexion within the rectum there were grade 1-2 internal hemorrhoids. The preparation was excellent throughout with [place] Preparation Score of 9. The cecal time was 12 minutes. Impression: 1. Diminutive descending colon polyps x 2 (3 and 5 mm) 2. Extensive left-sided diverticulosis 3. Grade 1-2 internal hemorrhoids Plan: I will follow-up the random biopsies to rule out microscopic colitis. I will also follow-up the polyp histology and determine whether repeat surveillance colonoscopy is warranted in 5 to 7 years. This will certainly be based on his good health and desire to continue preventative surveillance. I would resume psyllium Konsyl bulking fiber supplementation.
[2025-04-03 07:37] VITALS: BP 119/69; PULSE 76; RESP 18; TEMP 36.1; O2SAT 100
[2025-04-03] MEDS: LACTATED RINGERS 1000ML 1,000 ML 50 ML IV (07:53)
--- NOTE | 2025-04-03 08:17 | EXP.ANES.CKL ---
[facility] Disclaimer: The information contained in this section may have been updated after the patient was seen, as this information can be updated by other users. Medical History Nocturnal hypoxemia Nocturia History of traumatic head injury Memory loss Concussion Hypertension Surgical History Hx of shoulder surgery Hx of heart surgery Hx of cataract extraction History of repair of ACL Family History Other Cancer Diabetes Hypertension Social History (Updated 04/03/25 @ 07:41 by Sierra Canela RN) Smoking Status: Never smoker alcohol intake: current alcohol intake frequency: a few times a week substance use type: denies use current occupational status: retired Travel in the last 8 weeks?: None household members: spouse housing: house current occupation: [employer] caffeine: Yes [facility] Anesthesia Checklist Patient Identification Patient Identification: Arm Band Structural Data Admitted From: Home Planned Operative Procedure/s: Colonoscopy Consent for Planned Operative Procedure(s) Verified: Yes Verified Documents: Surgical Consent and History and Physical NPO Status Verified Time NPO: 04:00 (finished prep) Additional verifications Anesthesia Reactions: No Airway Assessment Mallampati Score:: Class II C-Spine Mobility Assessed: Yes TMJ Mobility Assessed: Yes Dentition: Good Dentition Neurological Assessment Level of Consciousness: Awake, Alert and Appropriate Anesthesia Plan Anesthesia Risk discussed: Yes Anesthesia Plan: Verified ASA Class: II Anesthesia Type: MAC
[2025-04-03 08:54] VITALS: BP 96/60; PULSE 62; RESP 18; TEMP 36.1; O2SAT 98
[2025-04-03 09:04] VITALS: BP 95/31; PULSE 57; RESP 16; O2SAT 97
[2025-04-03 09:14] VITALS: BP 99/67; PULSE 53; RESP 16; O2SAT 99
[2025-04-03 09:24] VITALS: BP 124/66; PULSE 61; RESP 16; O2SAT 97
== END 2025-04-03 09:24 | disposition home or self-care (01) ==
PROVIDERS: PCP Internal Medicine; Visit Provider Internal Medicine Gastroenterology
PROC: 0DJD8ZZ Inspection of Lower Intestinal Tract, Via Natural or Artificial Opening Endoscopic (ICD-10-PCS; CPT 45378; principal; 2025-04-03 08:30)
DX: D12.4 Benign neoplasm of descending colon (principal); K57.30 Diverticulosis of large intestine without perforation or abscess without bleeding; K64.0 First degree hemorrhoids; K64.1 Second degree hemorrhoids; I10 Essential (primary) hypertension; Z86.0101 Personal history of adenomatous and serrated colon polyps; Z83.79 Family history of other diseases of the digestive system; Z79.82 Long term (current) use of aspirin; Z80.0 Family history of malignant neoplasm of digestive organs; Z88.0 Allergy status to penicillin
CPT/HCPCS: 45380; 45385; 88305; J2003; J2704; J7120